=== PATIENT | female | born 1950 | race Caucasian/White ===

== ENCOUNTER 2017-07-04 18:56 | Inpatient (IN) | payer MEDICARE ==
[2017-07-04 19:31] LABS: #Eosinphils 0.4 thou/uL (0.0-0.7); #Lymphocytes 1.7 thou/uL (1.20-3.40); #Monocytes 0.7 thou/uL (0.11-0.59); %Basophils 0.4 % (0.0-1.0); %Eosinophils 4.7 % (0.0-10.0); %Lymphocytes 19.2 % (21.0-51.0); %Monocytes 8.2 % (0.0-10.0); Hematocrit 28.7 % (36.0-47.0); Red Blood Cell (RBC) Count 2.86 mill/uL (4.20-5.40); White Blood Cell (WBC) Count 8.9 thou/uL (4.8-10.8)
[2017-07-04 19:50] LABS: Lactic Acid - Sepsis 1.2 mmol/L (0.5-2.2)
[2017-07-04 19:57] LABS: ALT (SGPT) 20 U/L (8-55); AST (SGOT) 43 U/L (5-34); Alkaline Phosphatase 85 U/L (40-150); Anion Gap 18 mmol/L (10-20); BUN (Urea Nitrogen) 70 mg/dL (9.8-20.1); Bilirubin, Total 0.2 mg/dL (0.2-1.2); CK (CPK) 76 U/L (29-168); Calc. Creatinine Clearance 0 mL/min (70-130); Calcium 8.9 mg/dL (7.8-10.44); Carbon Dioxide 18 mmol/L (23-31); Chloride 108 mmol/L (98-107); Estimated GFR-MDRD 7; Globulin 4.5 g/dL (2.4-3.5); Lipase 70 U/L (8-78); Protein, Total 7.1 g/dL (6.0-8.3)
[2017-07-04 20:00] LABS: Troponin I 0.189 ng/mL (< 0.028)
[2017-07-04] MEDS ORDERED: Dextrose 50% Abboject 50 ML SYRINGE ONE (21:10)
[2017-07-04] MEDS ORDERED: Enoxaparin Sodium 100 MG/ML SYRINGE ONE (21:10)
[2017-07-04] MEDS ORDERED: Furosemide 100 MG/10 ML VIAL ONE (21:10)
[2017-07-04] MEDS ORDERED: Insulin Regular 300 UNITS/3 ML VIAL ONE (21:10)
--- NOTE | 2017-07-04 21:13 | RAD ---
RADIOGRAPH CHEST 1 VIEW: Date: 07/04/2017 Time: 7:36 p.m. HISTORY: A 66-year-old female with dyspnea and chest pain. COMPARISON: None. FINDINGS: There is cardiomegaly. There is blunting of the lateral costophrenic angles bilaterally. There are centrally dominant bilateral interstitial densities. No pneumothorax. Complete silhouetting of th e left hemidiaphragm. Left lower lobe air space density. IMPRESSION: 1. Evidence for congestive heart failure: Cardiomegaly, small bilateral pleural effusions, and pul monary interstitial edema. 2. Left lower lobe air space density. BETO [] POS: [facility]
--- NOTE | 2017-07-04 22:39 | ULT ---
ULTRASOUND WITH DOPPLER DUPLEX VENOUS LOWER EXTREMITIES BILATERAL: HISTORY: A 66-year-old female with bilateral lower extremity swelling, bilateral lower extremity pain, elevat ed D-dimer, and dyspnea. TECHNIQUE: Color flow Doppler, spectral waveform analysis of pulsed Doppler, and junior-scale imaging with compre ssion and augmentation, were used to evaluate the bilateral common femoral, femoral, popliteal, post erior tibial, and superficial femoral, veins; and the proximal portions of the profunda femoral and greater saphenous, veins. FINDINGS: There is normal compressibility, demonstration of blood flow by color Doppler and pulsed Doppler, an d response to augmentation, in all interrogated veins. There is diffuse soft tissue edema throughou t the bilateral lower extremities. There is an approximately 3.5 x 1 x 2.5 cm hypoechoic lesion in the right popliteal fossa. IMPRESSION: 1. No deep vein thrombosis in the bilateral lower extremities. 2. Bilateral lower extremity soft tissue edema. 3. Right Wilde's cyst. wally[] POS: [facility]
--- NOTE | 2017-07-04 23:00 | NM ---
NUCLEAR MEDICINE VENTILATION PERFUSION SCAN: (V/Q SCAN) HISTORY: A 66-year-old female with dyspnea and chest pain. TECHNIQUE: Xenon-133 gas dose: 15.7 millicuries. [id number] dose: 6 millicuries. The patient inhaled Xenon-133 gas, and dynamic ventilation scintigraphy was performed. [id number] wa s injected IV, and multiple perfusion scintigraphic views were obtained. FINDINGS: There are no moderate-sized or large perfusion defects. There are no significant ventilation/perfus ion mismatches. IMPRESSION: Low probability for pulmonary thromboembolism. jn [] POS: [facility]
[2017-07-04] MEDS ORDERED: Dextrose 50% Abboject 50 ML SYRINGE SLOW IVP PRN (23:18)
[2017-07-04] MEDS ORDERED: HumaLOG 300 UNITS/3 ML VIAL SC PRN (23:18)
[2017-07-04] MEDS ORDERED: Dextrose 5% in Water 1,000 ML IV PRN (23:18)
[2017-07-04] MEDS ORDERED: Acyclovir 200 mg Capsule PO SCH (23:45)
--- NOTE | 2017-07-05 00:26 | HP ---
PRIMARY CARE PHYSICIAN: Dr. Myranda Elaine. CHIEF COMPLAINT: Shortness of breath. HISTORY OF PRESENT ILLNESS: Ms. Mirza is a pleasant 66-year-old lady who was seen at [facility] on 07/04/2017. She reports that over the last 2 days, she has been short of breath. The shortness of breath is wor se with lying down. She denies any paroxysmal nocturnal dyspnea. She denies any dyspnea on exertio n. She denies any fevers or chills. She denies any cough. She reports a rash over her right shoul tristen. She also reports nausea and generalized weakness. She denies any chest pain. She denies any urinary symptoms. REVIEW OF SYSTEMS: The following complete review of systems was negative, unless otherwise mentione d in the HPI or below: Constitutional: Weight loss or gain, sense of well-being, ability to conduct usual activities, exer cise tolerance. Skin/Breast: Rash, itching, changes in hair growth or loss, nail changes, breast lumps, tenderness, swelling, nipple discharge. Eyes: Vision, double vision, tearing, blind spots, pain. ENT/Mouth: Headaches (location, time of onset, duration, precipitating factors), vertigo, lighthead edness, injury. Vision, double vision, tearing, blind spots, pain, nose bleeding, colds, obstruction , discharge, dental difficulties, gingival bleeding, dentures, neck stiffness, pain, tenderness, mas ses in thyroid or other areas. Cardiovascular: Precordial pain, substernal distress, palpitations, syncope, dyspnea on exertion, o rthopnea, nocturnal paroxysmal dyspnea, edema, cyanosis, hypertension, heart murmurs, varicosities, phlebitis, claudication. Respiratory: Pain, shortness of breath, wheezing, stridor, cough, hemoptysis, fever or night sweats . Gastrointestinal: Poor appetite, dysphagia, indigestion, abdominal pain, heartburn, eructation, b[place] sea, vomiting, hematemesis, jaundice, constipation, or diarrhea, abnormal stools (kassie-colored, maria dolores y, bloody, greasy, foul smelling), flatulence, hemorrhoids, recent changes in bowel habits. Genitourinary: Urgency, frequency, dysuria, nocturia, hematuria, polyuria, oliguria, unusual (or ch zena in) color of urine, stones, hesitancy, change in size of stream, dribbling, acute retention or incontinence, libido, potency. Musculoskeletal: Pain, swelling, redness or heat of muscles or joints, limitation, of motion, muscu lar weakness, atrophy, cramps. Neurologic/Psychiatric: Convulsions, paralyses, tremor, incoordination, parasthesias, difficulties with memory of speech, sensory or motor disturbances, or muscular coordination (ataxia, tremor), emo tional problems, anxiety, depression, previous psychiatric care, unusual perceptions, hallucinations . Allergy/Immunologic: Skin rash, anemia, bleeding tendency, polydipsia, polyuria, intolerance to hea t or cold. PAST MEDICAL HISTORY: Significant for lumbar laminectomy in late 2015, nephrolithiasis in 1999, tom yarticular osteoarthritis, gout, L4 radiculopathy, hypertension, dyslipidemia, diabetes mellitus, an emia, scoliosis, obesity, lumbar vertebral osteomyelitis in 2016 and recurrent urinary tract infecti ons. PAST SURGICAL HISTORY: Significant for total hysterectomy in 1995, bilateral total hip replacements , right-sided in 2003 and left-sided in 2008, bilateral cataract surgery in 2012, lumbar laminectomy at L3/L4 and L4/L5 in 2015. FAMILY HISTORY: Significant for cirrhosis in her father and heart disease in her mother. SOCIAL HISTORY: The patient denies tobacco use, alcohol use or recreational drug use. She lives al one at home. PSYCHIATRIC HISTORY: Significant for depression. ALLERGIES: CHLORHEXIDINE, MORPHINE. CURRENT MEDICATIONS: Metoprolol 50 mg 2 times a day, amlodipine 10 mg daily, gabapentin 100 mg adela y, Lantus 48 units 2 times a day, fenofibrate 145 mg daily, escitalopram 20 mg daily, potassium citr ate 20 mEq daily, aspirin 81 mg daily, Citracal 400 mg daily, multivitamins 1 tablet daily, magnesiu m glycinate daily. CODE STATUS: I discussed Ms. Mirza's code status. She is FULL CODE. PHYSICAL EXAMINATION: GENERAL: Ms. Mirza is awake and alert, not in acute distress. VITAL SIGNS: Blood pressure is 152/54, pulse is 80. She is breathing at rate of 20 and saturating 96% on room air. She is afebrile. When she initially presented to the emergency room, she had a bl ood pressure of 209/60. EYES: No scleral icterus. No conjunctival pallor. ENT: Moist mucosal membranes, no oropharyngeal erythema or exudates. NECK: She has a rash over the right side of her neck and upper chest on the right side, not crossin g midline. There has a few vesicles of different ages. This was accompanied by erythema over the a ffected area. There is no jugular venous distention. There is no thyromegaly. Trachea is midline. RESPIRATORY: Accessory muscles of breathing are not active. Chest wall movements are symmetric kike aterally. Lung examination reveals bibasilar crackles. CARDIOVASCULAR: S1 and S2 are heard, regular. Peripheral pulses palpable. No carotid bruit, no pe ricardial rub. ABDOMEN: Soft, nontender, bowel sounds heard, no hepatomegaly, no splenomegaly. NEUROLOGIC: Cranial nerves II through XII are intact. Deep tendon reflexes are 2+. PSYCHIATRIC: Normal mood, normal affect, patient is oriented to person, place, and time. MUSCULOSKELETAL: Power is 5/5 in all 4 extremities. Normal range of movement at all major extremit y joints. She also has bilateral lower extremity edema. SKIN: Neck rash as described above. No other rashes or subcutaneous nodules. LYMPHATIC: No cervical lymphadenopathy. LABORATORY DATA: Ms. Mirza's labs and investigations were reviewed. I reviewed her electrocardiogr am, which shows normal sinus rhythm, no ST changes to suggest an acute coronary syndrome. I also re viewed her chest x-ray, which shows pulmonary interstitial edema. There is also suspicion of her le ft lower lobe infiltrate. Laboratory investigation show a normal white count, macrocytic anemia wit h hemoglobin 9.2, normal platelet count, elevated D-dimer of 2.36, normal sodium, elevated potassium of 5.8, elevated creatinine 5.89, last known creatinine 3.16 on 02/25/2017, elevated blood urea nit rogen of 70, elevated AST of 43, normal total bilirubin, elevated BNP level of 2853, indeterminate t roponin I of 0.189, normal lipase and decreased albumin of 2.6. Globulin is elevated at 4.5. ASSESSMENT AND PLAN: Ms. Mirza is a pleasant 66-year-old lady who was seen at [facility]. Her problem list includes: 1. Shortness of breath: Most likely secondary to congestive heart failure exacerbation. Even thou gh there is suspicion of pulmonary infiltrate on the chest x-ray, she does not have leukocytosis or fever, she is not being started on antibiotics at this time. She did have a VQ scan, which was low probability for pulmonary thromboembolism. She will be admitted to the hospital for new onset conge stive heart failure. She will receive diuretics cautiously, given her renal failure. We will reque st 2D echocardiogram and Cardiology service consultation. 2. Acute on chronic renal failure: Ms. Mirza was found to have elevated creatinine towards the end of February. She was referred to see Nephrology, Dr. Corona. For some reason, they missed an appointmen t and ended up seeing him last week. He had ordered some tests to look into her renal failure. The patient has not yet had this test. We will consult Nephrology Service. I will provide the diureti cs judiciously. She does not appear to be dehydrated at this time, holding off on intravenous fluid s. Avoid nephrotoxic medications. 2. Herpes zoster, her rash is suspicious for herpes zoster. We will start her on acyclovir, dose a djusted for renal insufficiency. 3. Diabetes mellitus: We will start her on Accu-Cheks and insulin sliding scale. Her Lantus dose may need to be decreased, given the renal insufficiency. 4. Hypertension: Monitor vital signs, titrate antihypertensives as needed. 5. Dyslipidemia: Continue fenofibrate. 6. Hyperkalemia: Patient has received Kayexalate and insulin. Recheck potassium level. Hold pota ssium supplements. Many thanks for allowing me to participate in your patient's care. Please feel free to contact me w ith any questions or concerns. LEVEL OF RISK: High. LEVEL OF COMPLEXITY: High.
[2017-07-05 02:12] LABS: #Eosinphils 0.2 thou/uL (0.0-0.7); #Lymphocytes 1.3 thou/uL (1.20-3.40); #Monocytes 0.8 thou/uL (0.11-0.59); #Neutrophils 4.5 thou/uL (1.40-6.50); %Basophils 0.4 % (0.0-1.0); %Eosinophils 3.2 % (0.0-10.0); %Lymphocytes 18.9 % (21.0-51.0); %Monocytes 11.7 % (0.0-10.0); Red Blood Cell (RBC) Count 2.56 mill/uL (4.20-5.40); White Blood Cell (WBC) Count 6.8 thou/uL (4.8-10.8)
[2017-07-05 02:33] LABS: Troponin I 0.152 ng/mL (< 0.028)
[2017-07-05 02:41] LABS: Anion Gap 16 mmol/L (10-20); BUN (Urea Nitrogen) 71 mg/dL (9.8-20.1); Calc. Creatinine Clearance 16 mL/min (70-130); Calcium 8.6 mg/dL (7.8-10.44); Carbon Dioxide 16 mmol/L (23-31); Chloride 112 mmol/L (98-107); Estimated GFR-MDRD 7
[2017-07-05] MEDS ORDERED: Furosemide 20 MG/2 ML VIAL SLOW IVP SCH ×3 (06:00→13:30)
[2017-07-05] MEDS ORDERED: FLU VACC TS2017-18 (>65YR) 0.5 ML SYRINGE IM ONE (09:00)
[2017-07-05] MEDS ORDERED: Acyclovir 200 mg Capsule PO SCH (09:00)
[2017-07-05 09:19] LABS: Potassium, Urine 31.2 mmol/L
--- NOTE | 2017-07-05 09:26 | ULT ---
BILATERAL RENAL ULTRASOUND: Date: 07/05/17 COMPARISON: None. HISTORY: Acute on chronic renal failure. TECHNIQUE: Multiplanar Rodriguez scale and color Doppler images were obtained in a renal ultrasound. FINDINGS: Both kidneys demonstrate thin cortices and are echogenic. Small nonobstructing calcifications are se en in both kidneys. The kidneys measures 12.0 and 9.8 cm in length on the right and left, respective ly. The urinary bladder is moderately distended. Ureteral jets are not seen. IMPRESSION: 1. Echogenic kidneys are likely related to chronic medical renal disease. 2. Nonobstructing renal calcifications. 3. Urinary balder distention. POS: [facility]
--- NOTE | 2017-07-05 09:53 | PRG ---
DATE OF SERVICE: 07/05/2017 SUBJECTIVE: The patient is seen and examined at the bedside. She is feeling slightly better. This morning, she voided after she had ultrasound done at the midnight. She does not have any nausea, v omiting or abdominal pain. She has some burning sensation in the right side of the neck. OBJECTIVE: VITAL SIGNS: Blood pressure is 155/57, pulse is 86, temperature is 97.2, respirations 18, and O2 sa turation is 98% on room air. GENERAL: She is obese. Her BMI is 39. Her weight is 235. Her height is 5 feet and 5 inches. HEENT: Head is atraumatic, normocephalic. Eyes are PERRLA. Conjunctivae pinkish. Oral mucosa is somewhat dry. NECK: Supple, no lymphadenopathy. There are several vesicular lesions on the red base in the right base of the neck. LUNGS: Breath sounds are diminished at both bases. No crackles, rales, or wheezing. HEART: S1 and S2, somewhat distant. No S3, no S4. ABDOMEN: Soft, nontender, and nondistended. Bowel sounds are present, no organomegaly. EXTREMITIES: 1+ peripheral edema similar bilaterally. NEUROLOGIC: She is alert and oriented x4. There are no motor or sensory deficits present. Cranial nerves are intact. LABORATORY DATA: Showed white count of 6.8, hemoglobin 8.2, hematocrit 26.0, MCV 102, and platelet count 212. Sodium of 139, potassium 5.1, chloride 112, CO2 16, BUN 71, creatinine 5.91, and glucose is 37; it was 65 yesterday at 19:59. Troponin is elevated, 3 sets at 0.189, 0.160, and 0.152. BNP 2853. IMPRESSION: 1. Acute on chronic renal failure. Apparently, patient's creatinine was around 3 in February and she w as seen by Dr. Corona on an outpatient basis and she had some blood work done and she was setup for [facility], but this has not been done yet. The ultrasound was done this morning, but results are pen ding. We will put the Nieves catheter in, obtain urine sample for urinalysis and do input and output strict. We will avoid nephrotoxins. Dr. Corona is consulted and he will make decision about IV flui ds and further management of her nephropathy. 2. Herpes zoster, most likely in her neck area. I do not think it is worth to treat her with acycl ovir since it has nephrotoxic effect and precipitates in the tubules and we will discuss this with Mahesh Corona, but I believe we will stop the acyclovir that she was placed on. 3. Diabetes mellitus. We will continue her on sliding scale, Accu-Cheks a.c. and at bedtime, but s he is hypoglycemic now and we are not going to use long-acting insulin, Lantus for now. 4. Hypertension. We would titrate antihypertensives as needed. 5. Dyslipidemia. 6. Hyperkalemia, which was corrected and now her potassium is back to normal range. A V/Q scan was done and it is a low probability for PE and venogram did not show any deep venous thromboses, but c hest x-ray showed cardiomegaly and bilateral small pleural effusions. She will be on deep venous th rombosis prophylaxis with sequential compression devices and Cardiology is going to see the patient as well as Pulmonary, Dr. Boone.
[2017-07-05] MEDS: Furosemide 20 MG/2 ML VIAL SLOW IVP SCH (13:59)
--- NOTE | 2017-07-05 14:31 | CON ---
DATE OF CONSULTATION: 07/05/2017 NEPHROLOGY CONSULTATION REASON FOR CONSULTATION: Elevated creatinine. HISTORY OF PRESENT ILLNESS: This is a very pleasant 66-year-old female who [facility] with increasing dyspnea and leg swelling. The patient was seen in the CKD clinic. H er baseline creatinine was in the 2, which increased to 3. The patient has had a history of kidney stones in the past and episodes of acute kidney injury. PAST MEDICAL HISTORY: Significant for lumbar laminectomy, nephrolithiasis, history of lithotripsy, history of gout, radiculopathy, hypertension, hyperlipidemia, diabetes mellitus, anemia, scoliosis, osteomyelitis, recurrent urinary tract infection, history of hysterectomy, bilateral hip replacement , cataract surgery, and lumbar laminectomy. FAMILY HISTORY: Negative for ESRD. SOCIAL HISTORY: No alcohol or drug use. ALLERGIES: Reviewed. HOME MEDICATIONS: List reviewed. HOSPITAL MEDICATIONS: List reviewed. REVIEW OF SYSTEMS: A 15 point review of systems was performed and was negative except for positives noted above. GENERAL: Weakness- HEAD: Headache- NECK: No swelling or lumps. NOSE: No epistaxis or discharge. EYES: No diplopia or pain. 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 NEUROPSYCHIATIC SYSTEMS: No suicidal ideation. No ideation. SKIN: Denies any rash or ulcer. CONSTITUTIONAL: No fever or chills. PHYSICAL EXAMINATION: GENERAL: Patient is awake, alert. VITAL SIGNS: Afebrile, pulse 86, breathing at 16, blood pressure 149/45. GENERAL APPEARANCE AND MENTAL STATUS: Fair. HEAD/NECK: Normocephalic. Atraumatic. EYES: EOMI. No deformity. EARS: Clear. No ulcers. NOSE: Intact. No lesions. MOUTH: Clear. No discharge. THROAT: Clear. No exudate. LUNGS: Clear. No crackles. CARDIAC: S1, S2. No rub. ABDOMEN: Benign. BS+. GENITALIA/RECTUM: Nieves absent. BACK/EXTREMITIES: Lower extremities, 4+ edema. NEUROLOGICAL: Alert and motor intact. SKIN: Rash- Bruise- LYMPHATICS: Edema- Ulcer- ASSESSMENT AND RECOMMENDATIONS: 1. Acute kidney injury with chronic kidney disease, multifactorial, could be due to cardiorenal syn drome. Continue diuresis. 2. Edema. Continue Lasix. 3. History of nephrolithiasis and chronic kidney disease. No urgent indication for dialysis. We w ill follow the patient's renal function closely. 4. Metabolic acidosis. Would recommend p.o. sodium bicarbonate for placement. We will follow the patient's renal function closely. No indication for dialysis at this time.
[2017-07-05] MEDS: Sodium Bicarbonate Tab 325 MG TAB PO SCH ×2 (14:47→21:36)
--- NOTE | 2017-07-05 16:07 | CON ---
DATE OF SERVICE: 07/05/2017 SERVICE: Pulmonary Medicine. REASON FOR CONSULTATION: CU patient. HISTORY OF PRESENT ILLNESS: The patient is a 66-year-old white female with past medical history sig nificant for chronic kidney disease. This has been slowly progressing over a period of year and janina f. She presented to the emergency department with increasing dyspnea. She was found to be signific antly volume overloaded. Overnight, she had a couple doses of Lasix and has had a fairly dramatic i mprovement in her symptoms. She denies any current fevers, chills, nausea or vomiting. Recently, s he has been fighting a rash in her neck that has a burning and tingling sensation. She wonders whet her or not it could be shingles. PHYSICAL EXAMINATION: VITAL SIGNS: Afebrile, pulse 86, blood pressure 149/45, respirations 18, saturation 96% on room air . GENERAL: Patient is awake, alert, in no apparent distress. LUNGS: Decent air entry. Dependent crackles are present. HEART: Normal rate, regular. ABDOMEN: Soft, nontender, nondistended, bowel sounds positive. MUSCULOSKELETAL: No cyanosis or clubbing. There is trace to 1+ pitting in the bilateral lower extr emities. NEUROLOGIC: Grossly nonfocal. LABORATORY DATA: WBC 6.8, hemoglobin 8.2, and platelets 212,000. D-dimer 2.36. Glucose is ranging from 49-100. Creatinine 5.71, BUN 71. Bicarbonate 16, anion gap 16. Basic metabolic profile is o therwise unremarkable with potassium is down trending of 5.1. Troponin is down trending to 0.125, B [employer] 2800. Lactate was unremarkable on presentation. Liver function studies are unremarkable. IMAGIN. Renal ultrasound demonstrates no evidence of hydronephrosis. The kidneys are consistent with ch ronic medical renal disease. 2. V/Q scan demonstrates low probability study for thromboembolic disease. 3. Ultrasound of the bilateral lower extremities demonstrates no evidence of deep venous thrombosis . There is some soft tissue edema present in Wilde's cyst. 4. Chest x-ray demonstrates findings consistent with mild volume overload including bilateral pleur al effusions and prominent interstitial markings. Cephalization is also evident. ASSESSMENT: 1. Acute hypoxic respiratory failure, resolved. 2. Volume overload secondary to chronic kidney disease. 3. Acute on chronic kidney disease. 4. Bilateral pleural effusions. PLAN: We can continue to diurese the patient to euvolemia. In 2-3 days, repeat x-ray of the chest can be considered to make certain these effusions get smaller and/or go away. She does not require IMCU monitoring. As such, we will transition her to the telemetry unit because of her elevated trop onin and episode of high potassium.
--- NOTE | 2017-07-05 16:39 | CON ---
DATE OF CONSULTATION: 07/05/2017 REASON FOR CONSULTATION: Shortness of breath, edema, and elevated BNP. HISTORY OF PRESENT ILLNESS: Ms. Mirza is a pleasant 66-year-old woman who has been seen and evaluat ed by Dr. Arnie Fry in the past. She states she has had a full workup several years ago that was negative for ischemia. She has not been told in the past she had a cardiomyopathy. She most recently presented with increased lower extremity edema, difficulty sleeping, and shortness of breath. She states she had shortness of breath with little ambulation. No chest pain or pressu re noted. PAST MEDICAL HISTORY: Diabetes mellitus, hypertension, hyperlipidemia. No previous tobacco abuse. Chronic kidney disease, followed by Dr. Corona; lumbar laminectomy; nephrolithiasis; osteoarthritis; anemia; scoliosis; obesity; total hysterectomy; cataract surgery; laminectomy. SOCIAL HISTORY: No current tobacco or alcohol use. ALLERGIES: MORPHINE. HOME MEDICATIONS: Include metoprolol, Lantus, fenofibrate, amlodipine, Citracal, potassium, magnesi um, multivitamin, and gabapentin. REVIEW OF SYSTEMS: Ten-point review of systems is reviewed and as above, otherwise negative. PHYSICAL EXAMINATION: GENERAL: Patient is a pleasant female who is in no acute distress. The patient appears her stated age. VITAL SIGNS: Blood pressure 150/50, pulse 18, temperature 107. NEUROLOGIC: The patient is alert and oriented times 3 with no focal neurologic deficits. HEENT: Sclerae without icterus. Mouth has moist mucous membranes with normal pallor. NECK: No JVD. Carotid upstroke brisk. No bruits bilaterally. LUNGS: Clear to auscultation with unlabored respirations. BACK: No scoliosis or kyphosis. CARDIAC: Regular rate and rhythm with normal S1 and S2. No S3 or S4 noted. No significant rubs, m urmurs, thrills, or gallops noted throughout the precordium. PMI is not displaced. There is no par asternal heave. ABDOMEN: Soft, nontender, nondistended. No peritoneal signs present. No hepatosplenomegaly. No a bnormal striae. EXTREMITIES: Two positive edemas noted in her thighs bilaterally. SKIN: No gross abnormalities. PERTINENT LABORATORY: Hemoglobin 8.2 down from 9.2, creatinine 5.9. Peak troponin 0.152. BNP of 2 853. IMPRESSION: 1. Shortness of breath. 2. Edema. 3. Elevated BNP. RECOMMENDATIONS: It is unknown whether Ms. Mirza's symptoms are related to systolic versus diastoli c dysfunction. This may also be due to renal failure or chronic kidney disease stage 5. At this po int, we would recommend echo with Doppler to assess LV function as well as assess for diastolic dysf unction. Nephrology has been consulted. The patient may be nearing dialysis. This may be at the d iscretion of Dr. Corona. She is currently on Lasix as well as sodium bicarbonate. We will continue t o follow with you.
[2017-07-05] MEDS: traMADol HCl 50 MG TAB PO PRN (21:36)
[2017-07-06] MEDS: traMADol HCl 50 MG TAB PO PRN ×2 (04:22→17:12)
[2017-07-06 06:06] LABS: #Eosinphils 0.3 thou/uL (0.0-0.7); #Lymphocytes 1.4 thou/uL (1.20-3.40); #Monocytes 0.7 thou/uL (0.11-0.59); #Neutrophils 4.1 thou/uL (1.40-6.50); %Basophils 0.4 % (0.0-1.0); %Eosinophils 4.2 % (0.0-10.0); %Lymphocytes 20.9 % (21.0-51.0); %Monocytes 10.5 % (0.0-10.0); Hematocrit 23.6 % (36.0-47.0); Mean Platelet Volume 6.7 fL (7.4-10.4); Red Blood Cell (RBC) Count 2.36 mill/uL (4.20-5.40); White Blood Cell (WBC) Count 6.5 thou/uL (4.8-10.8)
[2017-07-06] MEDS: Furosemide 20 MG/2 ML VIAL SLOW IVP SCH ×3 (06:30→18:39)
[2017-07-06 06:31] LABS: Anion Gap 10 mmol/L (10-20); BUN (Urea Nitrogen) 67 mg/dL (9.8-20.1); Calc. Creatinine Clearance 16 mL/min (70-130); Calcium 7.9 mg/dL (7.8-10.44); Carbon Dioxide 21 mmol/L (23-31); Chloride 110 mmol/L (98-107); Estimated GFR-MDRD 7
[2017-07-06] MEDS: Sodium Bicarbonate Tab 325 MG TAB PO SCH ×3 (09:18→21:07)
[2017-07-06] MEDS ORDERED: Amlodipine 5 MG TAB PO SCH (09:45)
--- NOTE | 2017-07-06 10:45 | PRG ---
DATE OF SERVICE: 07/06/2017 SUBJECTIVE: Patient was seen and examined at bedside and overnight events noted. Patient denies an y shortness of breath or chest pain or palpitation. No history of nausea or vomiting or diarrhea or fever or chills or cramps. OBJECTIVE: GENERAL: This is an obese female in no apparent distress VITAL SIGNS: Temperature 97.9, pulse 90, respiratory rate 18, blood pressure 203/93. HEENT: Atraumatic, normocephalic. Oral mucosa is moist. NECK: Supple. CARDIOVASCULAR: S1 and S2 heard, rate and rhythm regular. RESPIRATORY: Clear to auscultation. GASTROINTESTINAL: Abdomen is soft. MUSCULOSKELETAL: No tenderness, no edema. DERMATOLOGIC: No skin rash. NEUROLOGIC: Alert and awake and oriented X3. No focal neurologic deficits. Moving all the extremi ties. PSYCHIATRIC: Mood and affect normal. LABORATORY DATA: Potassium is 4.4, BUN is 67, creatinine is 5.9. ASSESSMENT AND PLAN: 1. Acute kidney injury on chronic kidney disease, renal function is stable, on diuresis. 2. Edema, on Lasix. 3. History of nephrolithiasis. 4. Metabolic acidosis. 5. Cardiorenal syndrome. 6. Hypertension. Agree with adding amlodipine and home dose as tolerated to metoprolol. Follow up with stress test, we will follow.
[2017-07-06 10:48] LABS: Collection Duration 24 hrs
[2017-07-06] MEDS: Labetalol HCl 100 MG/20 ML VIAL SLOW IVP PRN ×2 (11:06→18:36)
--- NOTE | 2017-07-06 13:04 | PRG ---
DATE OF SERVICE: 07/06/2017 SERVICE: Pulmonary Medicine. INTERVAL HISTORY: The patient is doing outstanding from a respiratory standpoint. She has no diffi culty with breathing. She has been in bed since being here. She is yet to get up and about. Other navarro, there were no overnight events. PHYSICAL EXAMINATION: VITAL SIGNS: Afebrile, pulse 86, blood pressure 153/71, respirations 16, and saturation 96% on room air. GENERAL: The patient is awake and alert, in no apparent distress. LUNGS: Decent air entry. Dependent crackles are present. HEART: Normal rate, regular. ABDOMEN: Soft, nontender, nondistended. Bowel sounds positive. MUSCULOSKELETAL: No cyanosis or clubbing. No pitting in the bilateral lower extremities. NEUROLOGIC: Grossly nonfocal. LABORATORY DATA: WBC 6.5, hemoglobin 7.3, and platelets 209,000. Creatinine 5.9. BUN 67. Both of these are roughly stable. Basic metabolic profile is otherwise unremarkable. Bicarbonate has impr digna to 21. IMAGING: Echocardiogram demonstrates a 40% ejection fraction with diastolic dysfunction. There is mild to moderate valvular disease identified. ASSESSMENT: 1. Acute hypoxic respiratory failure, resolved. 2. Volume overload, secondary to chronic kidney disease. 3. Acute kidney injury on chronic kidney disease. 4. Bilateral pleural effusions. PLAN: We need to diurese the patient until she gets closer to euvolemia. I will repeat a chest x-r ay in 1-2 days prior to going home to make certain that these effusions are getting smaller. If not , one side maybe tapped. She is going down for a stress test today. Pulmonary will continue to fol low for the time being.
--- NOTE | 2017-07-06 17:52 | PDOC.PN ---
- Subjective Encounter Start Date: 07/06/17 Encounter Start Time: 13:00 Subjective: c/o painful swelling in legs - Objective Resuscitation Status: Resuscitation Status FULL:Full Resuscitation MAR Reviewed: Yes Vital Signs & Weight: Vital Signs (12 hours) Temp Pulse Resp BP BP Pulse Ox 07/06/17 17:11 185/86 H 07/06/17 16:00 98.3 F 93 20 190/86 H 95 07/06/17 11:19 98.0 F 86 16 153/71 H 96 07/06/17 11:06 98 238/102 H 07/06/17 10:02 98 203/93 H 07/06/17 09:30 98.0 F 86 16 98 07/06/17 09:13 97.9 F 98 20 197/71 H 98 Weight Admit Weight 235 lb 1.6 oz Weight 227 lb 12.8 oz I&O: 07/05/17 07/06/17 07/07/17 06:59 06:59 06:59 Intake Total 1844 Output Total 2775 Balance -931 Result Diagrams: 07/06/17 05:32 07/06/17 05:32 Additional Labs: Accuchecks 07/06/17 07/05/17 11:56 20:36 POC Glucose 72 104 Phys Exam - Physical Examination Constitutional: NAD HEENT: PERRLA Neck: no JVD Respiratory: no wheezing, no rales, no rhonchi, clear to auscultation bilateral Cardiovascular: RRR, no significant murmur, no rub improved lower ext edema; l/e elevated; tense edema prox theighs Gastrointestinal: soft, non-tender, no distention, positive bowel sounds Musculoskeletal: edema present Neurological: non-focal, normal sensation, moves all 4 limbs Psychiatric: normal affect, A&O x 3 Dx/Plan (1) Acute respiratory failure with hypoxia Code(s): J96.01 - ACUTE RESPIRATORY FAILURE WITH HYPOXIA Status: Acute Comment: multifactorial, due to fluid overload state from acute on chronic renal failure with concurrent acute on chronic combined CHF exacerbation. Diurese per nephro, manage hypertension. see orders for amlodipine and prn labetolol. VQ low probability for pulmonary embolism. Venous doppler reportedly done, no results in chart (2) Acute on chronic renal failure Code(s): N17.9 - ACUTE KIDNEY FAILURE, UNSPECIFIED; N18.9 - CHRONIC KIDNEY DISEASE, UNSPECIFIED Status: Acute Qualifiers: Acute renal failure type: unspecified Chronic kidney disease stage: stage 5 , not on chronic dialysis Qualified Code(s): N17.9 - Acute kidney failure, unspecified; N18.5 - Chronic kidney disease, stage 5; N18.5 - Chronic kidney disease, stage 5; N18.5 - Chronic kidney disease, stage 5; N18.5 - Chronic kidney disease, stage 5 Comment: diurese and control hypertension (3) Acute exacerbation of CHF (congestive heart failure) Code(s): I50.9 - HEART FAILURE, UNSPECIFIED Status: Acute Qualifiers: Congestive heart failure type: combined Qualified Code(s): I50.43 - Acute on chronic combined systolic (congestive) and diastolic (congestive) heart failure Comment: acute on chronic combined CHF exacerbation, EF 40-45% (4) Anxiety associated with depression Status: Chronic (5) Diabetes type 2, uncontrolled Code(s): E11.65 - TYPE 2 DIABETES MELLITUS WITH HYPERGLYCEMIA Status: Chronic Qualifiers: Diabetes mellitus complication status: with kidney complications Diabetes mellitus complication detail: with nephropathy Diabetes mellitus zigzag machine operator insulin use: with zigzag machine operator use Qualified Code(s): E11.21 - Type 2 diabetes mellitus with diabetic nephropathy; E11.65 - Type 2 diabetes mellitus with hyperglycemia; E11.65 - Type 2 diabetes mellitus with hyperglycemia; E11.65 - Type 2 diabetes mellitus with hyperglycemia; E11.65 - Type 2 diabetes mellitus with hyperglycemia; Z79.4 - coo (current) use of insulin; Z79.4 - coo (current) use of insulin; Z79.4 - coo (current) use of insulin; Z79.4 - coo (current) use of insulin Comment: with hypoglycemia. SSI only (6) Hypertension complicating diabetes Code(s): E11.59 - TYPE 2 DIABETES MELLITUS WITH OTH CIRCULATORY COMPLICATIONS; I10 - ESSENTIAL (PRIMARY) HYPERTENSION Status: Chronic Comment: amlodipine 5mg added and prn labetalol for sbp >160 (7) Anemia in chronic kidney disease (CKD) Code(s): N18.9 - CHRONIC KIDNEY DISEASE, UNSPECIFIED; D63.1 - ANEMIA IN CHRONIC KIDNEY DISEASE Status: Chronic Qualifiers: Chronic kidney disease stage: stage 5, not on chronic dialysis Qualified Code(s): N18.5 - Chronic kidney disease, stage 5; D63.1 - Anemia in chronic kidney disease; D63.1 - Anemia in chronic kidney disease Comment: Hb down to 7.3, monitor and transfuse if <7 or symptomatic. - Plan cont current plan of care, plan discussed w/ family f/u stress test, venous doppler u/s of lower ext * .
[2017-07-06] MEDS ORDERED: cloNIDine 0.1 MG TAB PO PRN (18:07)
[2017-07-07] MEDS: Furosemide 20 MG/2 ML VIAL SLOW IVP SCH ×2 (06:04→15:28)
[2017-07-07 06:31] LABS: Anion Gap 14 mmol/L (10-20); BUN (Urea Nitrogen) 66 mg/dL (9.8-20.1); Calc. Creatinine Clearance 15 mL/min (70-130); Carbon Dioxide 17 mmol/L (23-31); Chloride 109 mmol/L (98-107); Estimated GFR-MDRD 7; Magnesium 1.4 mg/dL (1.6-2.6)
[2017-07-07 07:50] LABS: Hematocrit 23.6 % (36.0-47.0); Mean Platelet Volume 7.1 fL (7.4-10.4); Red Blood Cell (RBC) Count 2.38 mill/uL (4.20-5.40); White Blood Cell (WBC) Count 7.3 thou/uL (4.8-10.8)
[2017-07-07 08:13] LABS: Band 1 % (5-11); Neutrophil 56 % (42-75); Polychromasia SLIGHT = 2-3 cells (100X) (0-2/hpf)
--- NOTE | 2017-07-07 08:40 | RAD ---
PORTABLE AP CHEST: Date: 07-07-17 History: Pleural effusion. Comparison: 07-04-17 FINDINGS: Again noted is increased density at the left lung base probably related to left pleural effusion and atelectasis. There slight blunting of the right lateral costophrenic angle which also may be relate d to a tiny right pleural effusion. Cardiac silhouette is magnified by projection but does appear mi ldly enlarged. Pulmonary vasculature is also mildly increased. No other interval change. IMPRESSION: 1. Cardiomegaly with pulmonary vasculature slightly increased. Correlation for mild CHF is recommend ed. Pulmonary vascular congestion has improved from the prior exam. 2. Small left and tiny right pleural effusions with associated atelectasis. Continued follow up to [facility] emergency department is recommended. POS: [facility]
[2017-07-07] MEDS ORDERED: Amlodipine 5 MG TAB PO SCH (09:00)
[2017-07-07] MEDS: Sodium Bicarbonate Tab 325 MG TAB PO SCH ×3 (09:16→21:53)
[2017-07-07] MEDS: Carvedilol 3.125 MG TAB PO SCH ×2 (09:17→21:53)
--- NOTE | 2017-07-07 09:42 | PDOC.PN ---
- Subjective Encounter Start Date: 07/07/17 Encounter Start Time: 07:20 Pt seen for followup re: acute on chronic renal failure. Says she feels better. Denies chest pain, shortness if breath, fevers or chills. - Objective Resuscitation Status: Resuscitation Status FULL:Full Resuscitation MAR Reviewed: Yes Vital Signs & Weight: Vital Signs (12 hours) Temp Pulse Resp BP BP Pulse Ox 07/07/17 09:17 93 07/07/17 09:16 189/76 H 07/07/17 04:17 98.1 F 93 18 142/63 H 93 L 07/07/17 02:48 94 L 07/07/17 00:00 97 143/75 H Weight Admit Weight 235 lb 1.6 oz Weight 228 lb I&O: 07/06/17 07/07/17 07/08/17 06:59 06:59 06:59 Intake Total 1844 840 Output Total 2775 1875 Balance -959 -3867 Result Diagrams: 07/07/17 06:02 07/07/17 06:02 Additional Labs: Accuchecks 07/07/17 07/06/17 07/06/17 06:01 20:25 11:56 POC Glucose 97 140 H 72 07/06/17 05:34 POC Glucose 118 H EKG Reviewed by me: Yes (Tele: NSR) Phys Exam - Physical Examination Obese HEENT: moist MMs, oral pharynx no lesions Neck: supple Respiratory: no wheezing, no rales, no rhonchi, clear to auscultation bilateral Cardiovascular: RRR, no rub Gastrointestinal: soft, non-tender, positive bowel sounds Musculoskeletal: pulses present, edema present Neurological: non-focal, normal sensation, moves all 4 limbs Lymphatic: no nodes Psychiatric: normal affect, A&O x 3 Skin: no rash, normal turgor, cap refill <2 seconds Dx/Plan (1) Acute on chronic renal failure Code(s): N17.9 - ACUTE KIDNEY FAILURE, UNSPECIFIED; N18.9 - CHRONIC KIDNEY DISEASE, UNSPECIFIED Status: Acute Qualifiers: Acute renal failure type: unspecified Chronic kidney disease stage: stage 5 , not on chronic dialysis Qualified Code(s): N17.9 - Acute kidney failure, unspecified; N18.5 - Chronic kidney disease, stage 5; N18.5 - Chronic kidney disease, stage 5; N18.5 - Chronic kidney disease, stage 5; N18.5 - Chronic kidney disease, stage 5 (2) Acute exacerbation of CHF (congestive heart failure) Code(s): I50.9 - HEART FAILURE, UNSPECIFIED Status: Acute Qualifiers: Congestive heart failure type: combined Qualified Code(s): I50.43 - Acute on chronic combined systolic (congestive) and diastolic (congestive) heart failure (3) Acute respiratory failure with hypoxia Code(s): J96.01 - ACUTE RESPIRATORY FAILURE WITH HYPOXIA Status: Acute (4) Diabetes type 2, uncontrolled Code(s): E11.65 - TYPE 2 DIABETES MELLITUS WITH HYPERGLYCEMIA Status: Chronic Qualifiers: Diabetes mellitus complication status: with kidney complications Diabetes mellitus complication detail: with nephropathy Diabetes mellitus longterm insulin use: with terminal carman use Qualified Code(s): E11.21 - Type 2 diabetes mellitus with diabetic nephropathy; E11.65 - Type 2 diabetes mellitus with hyperglycemia; E11.65 - Type 2 diabetes mellitus with hyperglycemia; E11.65 - Type 2 diabetes mellitus with hyperglycemia; E11.65 - Type 2 diabetes mellitus with hyperglycemia; Z79.4 - bed bug exterminator (current) use of insulin; Z79.4 - bed bug exterminator (current) use of insulin; Z79.4 - bed bug exterminator (current) use of insulin; Z79.4 - half-way (current) use of insulin (5) HTN (hypertension) Code(s): I10 - ESSENTIAL (PRIMARY) HYPERTENSION Status: Chronic - Plan DVT proph w/heparin * .Discussed with nephrology service. They will discuss re: possible dialysis. Continue diuretics. Continue accuchecks, insulin. Monitor vital signs, titrate antihypertensives as needed. Review of Systems - Review of Systems Constitutional: negative: Fever, Chills, Sweats, Weakness, Malaise Respiratory: negative: Cough, Dry, Shortness of Breath, Hemoptysis, SOB with Excertion, Pleuritic Pain, Sputum, Wheezing Cardiovascular: negative: Chest Pain, Palpitations, Orthopnea, Paroxysmal Noc. Dyspnea, Edema, Light Headedness Gastrointestinal: negative: Nausea, Vomiting, Abdominal Pain, Diarrhea, Constipation, Melena, Hematochezia Genitourinary: negative: Dysuria, Frequency, Incontinence, Hematuria, Retention - Medications/Allergies Allergies/Adverse Reactions: Allergies Allergy/AdvReac Type Severity Reaction Status Date / Time chlorhexidine Allergy Rash Verified 09/05/16 10:47 morphine Allergy Nausea Verified 09/05/16 10:47 Medications: Current Medications Amlodipine Besylate (Norvasc) 5 mg PO DAILY [facility] Last Admin: 07/07/17 09:17 Dose: 5 mg Carvedilol (Coreg) 3.125 mg PO BID [facility] Last Admin: 07/07/17 09:17 Dose: 3.125 mg Clonidine HCl (Catapres) 0.1 mg PO Q6H PRN PRN Reason: Hypertension Last Admin: 07/07/17 09:16 Dose: 0.1 mg Dextrose/Water (Dextrose 50%) 25 gm SLOW IVP PRN PRN PRN Reason: Hypoglycemia Furosemide (Lasix) 40 mg SLOW IVP 0600,1400 [facility] Last Admin: 07/07/17 06:04 Dose: 40 mg Glucagon (Glucagon) 1 mg IM PRN PRN PRN Reason: Hypoglycemia Dextrose/Water (D5w) 1,000 mls @ 0 mls/hr IV .Q0M PRN; As Directed PRN Reason: Hypoglycemia Insulin Human Lispro (Humalog) 0 units SC .MILD SLIDING SCALE PRN PRN Reason: Mild Correctional Scale Labetalol HCl (Normodyne) 20 mg SLOW IVP Q4H PRN PRN Reason: Hypertension Last Admin: 07/06/17 18:36 Dose: 20 mg Sodium Bicarbonate (Bicarbonate, Sodium) 325 mg PO TID [facility] Last Admin: 07/07/17 09:16 Dose: 325 mg Sodium Chloride (Flush - Normal Saline) 10 ml IVF PRN PRN PRN Reason: Saline Flush Last Admin: 07/06/17 15:06 Dose: 10 ml Tramadol HCl (Ultram) 50 mg PO Q6H PRN PRN Reason: Pain Last Admin: 07/06/17 17:12 Dose: 50 mg
[2017-07-07] MEDS ORDERED: Tuberculin PPD 0.1 ML VIAL I-DERMAL SCH (10:15)
--- NOTE | 2017-07-07 10:37 | PRG ---
DATE OF SERVICE: 07/07/2017 SUBJECTIVE: Patient was seen and examined at bedside and overnight events noted. Patient denies an y shortness of breath or chest pain or palpitation. No history of nausea or vomiting or diarrhea or fever or chills or cramps. OBJECTIVE: GENERAL: This is a morbidly obese female in no apparent distress. VITAL SIGNS: Temperature 98.1, pulse 93, respiratory rate 18, blood pressure 148/60. HEENT: Atraumatic, normocephalic. Oral mucosa is moist. NECK: Supple. CARDIOVASCULAR: S1 and S2 heard, rate and rhythm regular. RESPIRATORY: Clear to auscultation. GASTROINTESTINAL: Abdomen is soft. MUSCULOSKELETAL: No tenderness, no edema. DERMATOLOGIC: No skin rash. NEUROLOGIC: Alert and awake and oriented X3. No focal neurologic deficits. Moving all the extremi ties. PSYCHIATRIC: Mood and affect normal. LABORATORY DATA: Potassium is 4.4, BUN is 66, creatinine is 5.9. ASSESSMENT AND PLAN: 1. Acute kidney injury on chronic kidney disease stage 5. Renal function is not getting any better . It seems like her chronic numbers, I did look at her previous labs, also seems like this is new b aseline. The patient refused biopsy at this point, most likely from diabetic nephropathy and cardio renal syndrome. The patient was given the choice of dialysis and she [facility]. If patient agrees, we will start on dialysis. The patient is also not able to have further car diac testing because of the chronic kidney disease status. 2. Metabolic acidosis. 3. Edema on Lasix with improvement, but renal function is stable. 4. Anemia, most likely from chronic disease. 5. Cardiorenal syndrome. 6. Hypertension, stable. 7. Plan is to start dialysis if tolerated. We will consult Surgery and we will place the labs. I did talk with her primary compound coating machine offbearer, Dr. Corona, who has been having discussion with the patient. We will follow.
--- NOTE | 2017-07-07 14:23 | ULT ---
BILATERAL UPPER EXTREMITY VENOUS MAPPING: Date: 07/07/17 HISTORY: Renal failure. Evaluate for dialysis access. FINDINGS: Flow is demonstrated in the bilateral internal jugular and subclavian veins with normal lumen compre ssibility involving each axillary vein. RIGHT UPPER EXTREMITY CEPHALIC VEIN Proximal Arm: 4.0 mm Mid Arm: 3.9 mm Distal Arm: 3.1 mm Antecubital Fossa: 3.3 mm Proximal Forearm: 3.0 mm Mid Forearm: 2.1 mm Distal Forearm: 1.7 mm BASILIC VEIN Proximal Arm: 5.6 mm Mid Arm: 3.9 mm Distal Arm: 5.3 mm Antecubital Fossa: 3.8 mm Proximal Forearm: 3.5 mm Mid Forearm: 3.4 mm Distal Forearm: 3.9 mm LEFT UPPER EXTREMITY CEPHALIC VEIN Proximal Arm: 2.7 mm Mid Arm: 1.2 mm Distal Arm: 1.8 mm Antecubital Fossa: Noncompressible cephalic vein in this location suggesting thrombus. This is at s ite of peripheral intravenous catheter, according to patient. Proximal Forearm: 4.5 mm Mid Forearm: 3.2 mm Distal Forearm: 3.6 mm BASILIC VEIN Proximal Arm: 4.5 mm Mid Arm: 4.9 mm Distal Arm: 4.0 mm Antecubital Fossa: 4.5 mm Proximal Forearm: 2.9 mm Mid Forearm: 3.6 mm Distal Forearm: 2.6 mm RIGHT UPPER EXTREMITY ARTERIAL DIAMETERS: Brachial Artery: 3.2 mm Radial Artery: 2.4 mm Ulnar Artery 2.0 mm LEFT UPPER EXTREMITY ARTERIAL DIAMETERS: Brachial Artery: 3.8 mm Radial Artery: 2.5 mm Ulnar Artery: 0.7 mm IMPRESSION: The left upper extremity cephalic vein at the level of the antecubital fossa is noncompressible, con sistent with thrombus. This is at site of prior peripheral intravenous catheter according to ultraso und wheel alignment technician. The remaining venous diameters are as described above. POS: [facility]
[2017-07-07] MEDS ORDERED: CEFAZOLIN/Water 2 GM/20 ML SYRINGE SLOW IVP SCH (16:30)
--- NOTE | 2017-07-07 17:29 | NM ---
NUCLEAR MEDICINE CARDIAC MYOCARDIAL PERFUSION SPECT EJECTION FRACTION STUDY WALL MOTION CINE: Date: 07/07/17 HISTORY: 66-year-old female with elevated cardiac enzymes, hypertension, diabetes mellitus, and dyslipidemia. TECHNIQUE: Number of days: 1 Rest study: Tc99m sestamibi (Cardiolite) dose: 27.0 mCi Pharmacologic stress: adenosine dose: 57.7 mg Stress study: Tc99m sestamibi (Cardiolite) dose: 30.5 mCi FINDINGS: CARDIAC (MYOCARDIAL PERFUSION) SPECT There is a fixed inferolateral defect. Uptake is somewhat heterogeneous in the anterior wall. No rev ersible defect is identified. EJECTION FRACTION STUDY EF = 50% WALL MOTION CINE Homogeneous wall motion, with normal systolic wall thickening and no hypokinetic segments. IMPRESSION: 1. No evidence of reversible ischemia. 2. Findings consistent with infarction or scar at inferoseptal region, small. BETO Crowley POS: [facility]
[2017-07-07] MEDS ORDERED: Bisacodyl 5 MG TAB PO PRN (17:31)
--- NOTE | 2017-07-07 18:19 | PRG ---
DATE OF SERVICE: 07/07/2017 SUBJECTIVE: Ms. Mirza feels much better. Her shortness of breath has improved. PHYSICAL EXAMINATION: VITAL SIGNS: Blood pressure 165/77, pulse 89, temperature 98. LUNGS: Clear to auscultation. HEART: Regular rate and rhythm. ABDOMEN: Soft, nontender, nondistended. EXTREMITIES: Decreased edema. PERTINENT LABS: Hemoglobin 7.6, creatinine 5.98. Stress rest myocardial perfusion study, LVEF 50% with scar present to the anteroseptal region in a s mall area. IMPRESSION: 1. Malignant hypertension. 2. Chronic kidney disease, stage 5. 3. Shortness of breath. 4. Edema. RECOMMENDATIONS: Ms. Mirza's stress study is felt to be low risk. Her LVEF is normal. She has a s mall area of scar. We will continue medical therapy. We would not feel the need to proceed with co ronary angiography. Blood pressure appears to be improved. Recommendations on blood pressure manag ement per Nephrology. Again, we will defer angiography at this time due to this being a low risk sc an.
--- NOTE | 2017-07-07 20:50 | HP ---
HISTORY OF PRESENT ILLNESS: She Mirza is a 66-year-old female who lives in [place]. Patient is . She has mobility problems negotiating on a wheeled walker due to lumbar surgery, bila teral hip replacements. She was followed Dr. Davis, urologist in the past and told that she had m ild kidney disease. She has a history of insulin-dependent diabetes mellitus and hypertension. She is admitted this hospitalization because of dyspnea. Echocardiogram revealed a 40-45% ejection fra ction with mild mitral valve dysfunction. Dr. Nettles has seen her and cardiac stress test perfor [facility]. Results pending. Patient reports having had a cardiac stress test by Dr. Fry a year ago that was normal, performed prior to her lumbar surgery, which was performed in [place]. She denies any known past cardiac history. The patient has been seeing Dr. Corona for GFR of 7. She is in need of initiating dialysis. The patient had an IV in left antecubital area which I have asked them to remove today. This has been moved to her left hand. Clinical exam reveals a thrombosed antecubital vein. Ultrasound confirms this. Ultrasound vein mapping both arms suggest the right upper extremi ty to be suitable for a fistula. Vein mapping reveals vein to be 4 mm, 3.9 mm, 3.1 mm, 3.3 mm antec ubital fossa, 3 mm proximal forearm, 2.1 mid forearm, 1.7 distal forearm. Basilic vein was 5.6, 3.9 , 5.3 and 3.8 and 3.5 and 3.4 in left arm. As noted above, left arm reveals 2.7, 1.2, 1.8 thrombose d vein antecubital area. Basilic vein 4.5, 4.9, 4.0, 4.5 mm antecubital fossa. Plan at this time a fter discussing these issues with the patient were to proceed tomorrow with placement of a hemodialy sis catheter, possible central line and right arm primary fistula under regional anesthesia TIVA. R isk of infection, bleeding, reoperation and thrombosed fistula, possible for staged planned revision s such as transposition may be necessary. Patient is obese. Patient has lost 80 pounds intentionally in the last few months. 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 She is 5 foot 5 inches, 228 pounds, 37 BMI. ALLERGIES: CHLORHEXIDINE, MORPHINE. TOBACCO: None. ALCOHOL: None. MEDICATIONS: Insulin at home acetaminophen, gabapentin, amlodipine, tramadol. She has sliding scal e currently. PAST SURGICAL HISTORY: Bilateral hip replacements, lumbar surgery, hysterectomy, cataract surgery. PAST MEDICAL HISTORY: Insulin-dependent diabetes mellitus, hypertension, dyslipidemia, diabetes lj litus, metabolic syndrome. PHYSICAL EXAMINATION VITAL SIGNS: Height 5 feet 5 inches, 228 pounds, 37 BMI, 98 degrees, 89 pulse, blood pressure 165/7 7. HEENT: Unremarkable. LUNGS: Clear to auscultation. CARDIAC: Rhythm without murmur or gallop. ABDOMEN: Soft, obese, nontender. EXTREMITIES: Unremarkable. Palpable radial pulses bilaterally. Left antecubital area thrombosed a ntecubital vein secondary iatrogenic IV which has been removed. She has a Hep-Lock in her left hand . ASSESSMENT AND PLAN: 1. End-stage renal disease, GFR 7. I have discussed with her recommendations for placement of hemo dialysis catheter in right arm fistula. We will have to user her dominant arm since iatrogenically the left antecubital vein has thrombosed secondary to Hep-Lock IV access. This has been since remov ed. I instructed her to avoid IV access, blood draws above her wrist and preserve her veins for fut ure dialysis access. She understands risks of infection, bleeding, reoperation, possibility she milind ht need revision or transposition due to her obesity. Questions answered. Patient may be a valentin te for peritoneal dialysis in the future and this can be considered later. 2. Cardiac stress test pending. 3. Insulin-dependent diabetes mellitus. 4. Hypertension. 5. Dyslipidemia. 6. Metabolic syndrome.
[2017-07-08] MEDS: Furosemide 20 MG/2 ML VIAL SLOW IVP SCH ×2 (05:23→18:06)
[2017-07-08] MEDS: Carvedilol 3.125 MG TAB PO SCH (05:24)
[2017-07-08] MEDS ORDERED: Carvedilol 3.125 MG TAB PO SCH (07:34)
[2017-07-08 08:10] LABS: Anion Gap 13 mmol/L (10-20); BUN (Urea Nitrogen) 70 mg/dL (9.8-20.1); Calc. Creatinine Clearance 14 mL/min (70-130); Calcium 7.9 mg/dL (7.8-10.44); Carbon Dioxide 22 mmol/L (23-31); Chloride 107 mmol/L (98-107); Estimated GFR-MDRD 7
--- NOTE | 2017-07-08 08:29 | PRG ---
Patient Name: EMANI EGAN Date of service: 07/08/2017 Subjective: Patient was seen and examined at bedside and overnight events noted. Patient denies any shortness of breath or chest pain or palpitation. No history of nausea or vomiting or diarrhea or fever or chills or cramps. Objective: General: This is a morbidly obese white female in no apparent distress. Vital signs: Temperature 97, pulse 87, respirations 16, blood pressure 179/81. HEENT: Atraumatic, normocephalic. Oral mucosa is moist. Neck: Supple. Cardiovascular: S1 S2 heard. Rate and rhythm regular. Respiratory: Clear to auscultation. Gastrointestinal: Abdomen is soft. Musculoskeletal: No tenderness. No edema. Dermatologic: No skin rash. Neurologic: Alert and awake and oriented X3. No focal neurologic deficits. Moving all the extremi ties. Psychiatric: Mood and affect normal. LABORATORY DATA: Potassium is 4.4, BUN 66, creatinine is 5.9. These labs were from yesterday. ASSESSMENT AND PLAN: 1. Acute kidney injury on chronic kidney disease stage 5. Renal function needs to be checked today , labs ordered. We will follow. The patient is still undecided about dialysis, wants to talk with her daughter also who will be here today and wants to know the labs today. Surgeon already consulte d and vein mapping done. Dr. Corona also talked with the family. 2. Cardiorenal syndrome. Plan is not to have any heart catheterization so far. 3. Metabolic acidosis. 4. Hypertension. We will increase amlodipine and Coreg dose. 5. Anemia. We will add Epogen for chronic kidney disease. 6. Secondary hyperparathyroidism of renal origin. The patient is still undecided on dialysis. Appreciate help from Surgery and will check labs today and follow up with the family regarding decision moving forward. We will follow.
[2017-07-08] MEDS ORDERED: Polyethylene Glycol 3350 17 GM Packet PO SCH (09:30)
[2017-07-08] MEDS: Carvedilol 6.25 MG TAB PO SCH ×2 (09:59→22:38)
[2017-07-08] MEDS ORDERED: Epoetin (ESRD) 10,000 UNITS/ML VIAL SC SCH (10:00)
[2017-07-08] MEDS: Amlodipine 10 MG TAB PO SCH (10:00)
[2017-07-08] MEDS ORDERED: Epoetin (ESRD) 20,000 UNITS/ML SC SCH (10:00)
--- NOTE | 2017-07-08 10:02 | PRG ---
DATE OF SERVICE: 07/07/2017 SERVICE: Pulmonary Medicine INTERVAL HISTORY: The patient is doing outstanding from a cardiovascular and respiratory standpoint . She is on room air. She denies having any shortness of breath. She is requesting to keep her Fo january catheter in while we are diuresing her, but I have suggested that it does need to come out. Oth erwise, she has no specific complaints. There were no overnight events. PHYSICAL EXAMINATION: VITAL SIGNS: Afebrile, pulse 94, blood pressure 115/72, respirations 18, saturation 94% on room air . GENERAL: The patient is awake, alert, in no apparent distress. LUNGS: Decent air entry. No prolonged expiratory phase, wheezing, rhonchi or crackles. HEART: Normal rate, regular. ABDOMEN: Soft, nontender, nondistended. Bowel sounds are positive. MUSCULOSKELETAL: No cyanosis or clubbing. There is more pitting in the bilateral lower extremities . GENITOURINARY: Nieves catheter in place. NEUROLOGIC: Grossly nonfocal. LABORATORY DATA: WBC 7.3, hemoglobin 7.6, platelets 197,000. Creatinine 6.04 and trending upward g ently. Basic metabolic profile is otherwise unremarkable. IMAGING: Chest x-ray demonstrates cardiomegaly with pulmonary vasculature more prominent. This is improved compared to prior exam. The pleural effusions are smaller compared to prior. ASSESSMENT: 1. Acute hypoxic respiratory failure, resolved. 2. Volume overload secondary to chronic kidney disease and heart disease. 3. Chronic kidney disease, progressing to end-stage renal disease. 4. Bilateral pleural effusions, getting smaller. PLAN: At this point, she has no further requirements for inpatient Pulmonary Critical Care opinion. As such, I will sign off. Please call with additional questions or concerns moving forward. Beatriz hernandez, she will need a repeat chest x-ray in 2-4 weeks in the outpatient setting once she arrives c loser to euvolemia. If the effusion persists and gets larger, thoracentesis needs to be considered. If she gets into any breathing trouble, please give me a phone call sooner.
[2017-07-08] MEDS: Sodium Bicarbonate Tab 325 MG TAB PO SCH ×3 (10:09→22:39)
--- NOTE | 2017-07-08 10:11 | PDOC.PN ---
- Subjective Encounter Start Date: 07/08/17 Encounter Start Time: 07:00 Pt seen for acute on chronic renal failure. Says she slept okay. Denies chest pain, nausea or vomiting. No abdo pain. - Objective Resuscitation Status: Resuscitation Status FULL:Full Resuscitation MAR Reviewed: Yes Vital Signs & Weight: Vital Signs (12 hours) Temp Pulse Pulse Pulse Resp BP BP 07/08/17 10:00 87 07/08/17 09:26 86 85 185/81 H 181/80 H 07/08/17 07:36 97.2 F L 87 16 07/08/17 04:22 98.7 F 90 18 BP Pulse Ox Pulse Ox Pulse Ox 07/08/17 10:00 07/08/17 09:26 94 L 95 07/08/17 07:36 179/81 H 95 07/08/17 04:22 174/81 H 94 L Weight Admit Weight 235 lb 1.6 oz Weight 217 lb 6.4 oz I&O: 07/07/17 07/08/17 07/09/17 06:59 06:59 06:59 Intake Total 840 120 Output Total 1875 900 Balance -1035 -780 Result Diagrams: 07/07/17 06:02 07/08/17 07:35 Additional Labs: Accuchecks 07/07/17 07/07/17 07/07/17 20:46 18:24 11:21 POC Glucose 195 H 169 H 115 H EKG Reviewed by me: Yes (Tele: NSR) Phys Exam - Physical Examination Obese HEENT: moist MMs, sclera anicteric, oral pharynx no lesions Neck: supple, full ROM Respiratory: no wheezing, no rales, no rhonchi, clear to auscultation bilateral Cardiovascular: RRR, no rub Gastrointestinal: soft, non-tender, no distention, positive bowel sounds Musculoskeletal: pulses present, edema present Neurological: moves all 4 limbs Lymphatic: no nodes Psychiatric: normal affect, A&O x 3 Skin: no rash, normal turgor, cap refill <2 seconds Dx/Plan (1) Acute on chronic renal failure Code(s): N17.9 - ACUTE KIDNEY FAILURE, UNSPECIFIED; N18.9 - CHRONIC KIDNEY DISEASE, UNSPECIFIED Status: Acute Qualifiers: Acute renal failure type: unspecified Chronic kidney disease stage: stage 5 , not on chronic dialysis Qualified Code(s): N17.9 - Acute kidney failure, unspecified; N18.5 - Chronic kidney disease, stage 5; N18.5 - Chronic kidney disease, stage 5; N18.5 - Chronic kidney disease, stage 5; N18.5 - Chronic kidney disease, stage 5 (2) Acute exacerbation of CHF (congestive heart failure) Code(s): I50.9 - HEART FAILURE, UNSPECIFIED Status: Acute Qualifiers: Congestive heart failure type: combined Qualified Code(s): I50.43 - Acute on chronic combined systolic (congestive) and diastolic (congestive) heart failure (3) Herpes zoster Code(s): B02.9 - ZOSTER WITHOUT COMPLICATIONS Status: Acute (4) Diabetes type 2, uncontrolled Code(s): E11.65 - TYPE 2 DIABETES MELLITUS WITH HYPERGLYCEMIA Status: Chronic Qualifiers: Diabetes mellitus complication status: with kidney complications Diabetes mellitus complication detail: with nephropathy Diabetes mellitus half-way insulin use: with crystallography teacher use Qualified Code(s): E11.21 - Type 2 diabetes mellitus with diabetic nephropathy; E11.65 - Type 2 diabetes mellitus with hyperglycemia; E11.65 - Type 2 diabetes mellitus with hyperglycemia; E11.65 - Type 2 diabetes mellitus with hyperglycemia; E11.65 - Type 2 diabetes mellitus with hyperglycemia; Z79.4 - assisted (current) use of insulin; Z79.4 - digital media specialist (current) use of insulin; Z79.4 - assisted (current) use of insulin; Z79.4 - assisted (current) use of insulin (5) HTN (hypertension) Code(s): I10 - ESSENTIAL (PRIMARY) HYPERTENSION Status: Chronic (6) Acute respiratory failure with hypoxia Code(s): J96.01 - ACUTE RESPIRATORY FAILURE WITH HYPOXIA Status: Resolved - Plan plan discussed w/ family, PT/OT, out of bed/ambulate, DVT proph w/heparin * . Discussed with patient and daughter. Pt decided to go for dialysis. Continue diuretics for now. Discussed with nephrology service, will resume acyclovir, renal-adjusted dose. Monitor vital signs and titrate antihypertensives as needed. Continue insulin sliding scale, accuchecks. Review of Systems - Review of Systems Constitutional: negative: Fever, Chills, Sweats, Weakness, Malaise Respiratory: negative: Cough, Dry, Shortness of Breath, Hemoptysis, SOB with Excertion, Pleuritic Pain, Sputum, Wheezing Cardiovascular: negative: Chest Pain, Palpitations, Orthopnea, Paroxysmal Noc. Dyspnea, Edema, Light Headedness Gastrointestinal: negative: Nausea, Vomiting, Abdominal Pain, Diarrhea, Constipation, Melena, Hematochezia Genitourinary: negative: Dysuria, Frequency, Incontinence, Hematuria, Retention - Medications/Allergies Allergies/Adverse Reactions: Allergies Allergy/AdvReac Type Severity Reaction Status Date / Time chlorhexidine Allergy Rash Verified 09/05/16 10:47 morphine Allergy Nausea Verified 09/05/16 10:47 Medications: Current Medications Amlodipine Besylate (Norvasc) 10 mg PO DAILY [facility] Last Admin: 07/08/17 10:00 Dose: 10 mg Bisacodyl (Dulcolax) 10 mg PO DAILYPRN PRN PRN Reason: CONSTIPATION Carvedilol (Coreg) 12.5 mg PO BID [facility] Last Admin: 07/08/17 09:59 Dose: 12.5 mg Cefazolin Sodium (Ancef) 2 gm SLOW IVP [facility] Stop: 07/08/17 16:31 Clonidine HCl (Catapres) 0.1 mg PO Q6H PRN PRN Reason: Hypertension Last Admin: 07/07/17 09:16 Dose: 0.1 mg Dextrose/Water (Dextrose 50%) 25 gm SLOW IVP PRN PRN PRN Reason: Hypoglycemia Epoetin Nestor (Procrit) 10,000 units SC Q7D [facility] Last Admin: 07/08/17 09:59 Dose: 10,000 units Furosemide (Lasix) 40 mg SLOW IVP 0600,1400 [facility] Last Admin: 07/08/17 05:23 Dose: 40 mg Glucagon (Glucagon) 1 mg IM PRN PRN PRN Reason: Hypoglycemia Dextrose/Water (D5w) 1,000 mls @ 0 mls/hr IV .Q0M PRN; As Directed PRN Reason: Hypoglycemia Insulin Human Lispro (Humalog) 0 units SC .MILD SLIDING SCALE PRN PRN Reason: Mild Correctional Scale Labetalol HCl (Normodyne) 20 mg SLOW IVP Q4H PRN PRN Reason: Hypertension Last Admin: 07/06/17 18:36 Dose: 20 mg Read Ppd Test Site 0 each PO ONE [facility] Stop: 07/09/17 09:01 Polyethylene Glycol (Miralax) 17 gm PO DAILY [facility] Polyethylene Glycol (Miralax) 17 gm PO ONE [facility] Stop: 07/08/17 11:00 Sodium Bicarbonate (Bicarbonate, Sodium) 325 mg PO TID [facility] Last Admin: 07/08/17 10:09 Dose: 325 mg Sodium Chloride (Flush - Normal Saline) 10 ml IVF PRN PRN PRN Reason: Saline Flush Last Admin: 07/06/17 15:06 Dose: 10 ml Tramadol HCl (Ultram) 50 mg PO Q6H PRN PRN Reason: Pain Last Admin: 07/06/17 17:12 Dose: 50 mg
[2017-07-08 11:21] LABS: A/G Ratio 0.6 (0.7-1.7); Albumin 2.2 g/dL (2.9-4.4); Alpha 1 0.4 g/dL (0.0-0.4); Alpha 2 1.2 g/dL (0.4-1.0); Gamma 1.3 g/dL (0.4-1.8); Globulin, Total 3.9 g/dL (2.2-3.9); M-Spike 0.3 g/dL (Not Observed)
[2017-07-08] MEDS ORDERED: CEFAZOLIN/Water 2 GM/20 ML SYRINGE ONE (11:50)
[2017-07-08] MEDS ORDERED: Protamine Sulfate 50 MG/5 ML VIAL ONE (12:14)
[2017-07-08] MEDS ORDERED: Heparin 10,000 UNITS/1 ML VIAL ONE (12:14)
[2017-07-08] MEDS ORDERED: Sodium Chloride 0.9% 20 ML ONE (12:14)
[2017-07-08] MEDS ORDERED: Heparin 5,000 UNITS/ML VIAL ONE (12:14)
[2017-07-08] MEDS ORDERED: Bupivacaine 0.25% HCL 30 ML VIAL ONE (12:19)
[2017-07-08] MEDS ORDERED: Lidocaine 1% w/Epinephrine 1:200K 30 ML VIAL ONE (12:20)
[2017-07-08] MEDS ORDERED: Clindamycin/D5W 900 mg/50 ml Premix Bag ONE (13:11)
[2017-07-08] MEDS ORDERED: Levofloxacin 500 mg/D5W 100 ml Premix Bag ONE (13:11)
[2017-07-08] MEDS ORDERED: Scopolamine 1.5 mg/72 hour Patch ONE (13:16)
[2017-07-08] MEDS ORDERED: Fentanyl 100 MCG/2 ML VIAL ONE (13:20)
[2017-07-08] MEDS ORDERED: Acetaminophen 500 MG TAB PO PRN ×2 (13:36→14:33)
[2017-07-08] MEDS ORDERED: Ondansetron HCl/PF 4 MG/2 ML Vial ONE (13:55)
[2017-07-08] MEDS ORDERED: Glycopyrrolate 0.2 MG/ML 5 ML SYRINGE ONE (13:55)
[2017-07-08] MEDS ORDERED: Propofol 200 MG/20 ML VIAL ONE (13:55)
[2017-07-08] MEDS ORDERED: Metoclopramide HCl 10 MG/2 ML VIAL ONE (13:55)
[2017-07-08] MEDS ORDERED: Lidocaine 1% PF 5 ML VIAL ONE (13:55)
[2017-07-08] MEDS ORDERED: PHENYLEPHRINE-NS 100 MCG/ML 10 ML SYRINGE ONE (13:55)
[2017-07-08] MEDS ORDERED: Promethazine HCl 25 MG/ML VIAL SLOW IVP PRN (15:41)
[2017-07-08] MEDS ORDERED: Promethazine HCl 25 MG/ML VIAL IM PRN (15:41)
[2017-07-08] MEDS ORDERED: Ondansetron HCl/PF 4 MG/2 ML Vial IVP PRN (15:41)
--- NOTE | 2017-07-08 17:44 | OP ---
DATE OF PROCEDURE: 07/08/2017 PREOPERATIVE DIAGNOSES: End-stage renal disease, morbid obesity, metabolic syndrome, diabetes melli tus, insulin dependent, hypertension, thrombosed left antecubital vein iatrogenic from IV access, IV removed from right deltoid cephalic vein on my arrival, poor IV access. POSTOPERATIVE DIAGNOSES: End-stage renal disease, morbid obesity, metabolic syndrome, diabetes yanni itus, insulin dependent, hypertension, thrombosed left antecubital vein iatrogenic from IV access, I V removed from right deltoid cephalic vein on my arrival, poor IV access. PROCEDURE: Ultrasound and fluoroscopy guidance for placement of left and right internal jugular vei n central line, central line left, hemodialysis cuffed tunneled catheter, angiodynamics precurved, r ight. Fluoroscopy revealed good line placement bilaterally, right arm primary fistula, perforating branch antecubital vein to proximal radial artery which was of excellent caliber, outflow cephalic v ein, small branch to the basilic vein clipped, retrograde antecubital vein preserved, 4 mm coronary artery dilator calibration, cephalic vein outflow. SURGEON: Dr. Wyatt Cifuentes. ANESTHESIA: General. Local 0.5% Marcaine without epinephrine, 2% Xylocaine. PROCEDURE IN DETAIL: Patient was taken to the operating room where under general anesthesia, neck, chest, right upper extremity and axilla were prepared with ChloraPrep, draped in routine fashion. L ocal anesthetic infiltrated into skin and subcutaneous tissue about the operative site. Using ultra sound guidance, right and left internal jugular veins were cannulated with trocar catheter and J-wir e threaded. Trocar catheter removed. Skin incised and enlarged sharply bilaterally on the left. D ilator placed and removed over the J-wire into the internal jugular vein and the distal port of trip le lumen catheter placed over the J-wire into the superior vena cava, securing the catheter sutures of 3-0 nylon. Biopatch sterile dressing applied. Each port aspirated blood and flushed with saline solution. On the right side, a stab incision was made over the right chest infraclavicular exit site and using the tunneling device, precurved angiodynamics cuffed tunnel hemodialysis catheter tunneled between the two incisions, placing the fabric cuff beneath the skin exit site and catheter secured with 2 in terrupted sutures of 3-0 nylon and a Biopatch applied. Smaller and medium sized dilators placed ove r the J-wire into the internal jugular vein and removed. Dilator and pull-away sheath placed over t he J-wire into the superior vena cava and dilator and J-wire removed. Catheter placed with a pull-a way sheath and the pull-away sheath removed. Fluoroscopically, catheter noted to be in good positio n. Platysma approximated with 4-0 Monocryl, skin with subdermal 4-0 Monocryl. DermaGlue and steril e dressings applied. Each port aspirated blood and flushed with saline solution and heparinized steve ine solution 1000 units of heparin per mL indicated volume of the port. Attention was then turned to the right upper extremity. Incision was made in the proximal volar for earm longitudinally just below the antecubital fossa and carried down through the skin and subcutane ous tissue. Antecubital vein dissected free. Perforating branch dissected free and branches divide d between 4-0 silk ties and clips and the most perforating branch was dissected free down into the d epths of the wound, it was spatulated over branch points and interrogated with coronary dilators, pa ssing coronary dilators from a 2 mm to a 4 mm coronary dilator out the cephalic vein outflow without obstruction. The basilic vein had a small communicator and this was clipped. Proximal radial azael ry dissected free, perforating branch probably ulnar artery dissected free. The artery was of excel lent caliber. The patient was given 5000 units of heparin intravenously. After adequate circulatio n time, the artery was clamped proximally and distally and longitudinal arteriotomy made sharply, an d end vein to proximal radial artery anastomosis created with continuous suture of 6-0 Prolene. Onc e this was completed, vascular clamps released. There was excellent flow in the fistula interrogate d by Doppler outflow cephalic vein. Good hemostasis noted. Surgicel applied. Patient was given 25 mg of protamine intravenously. Retrograde antecubital vein was preserved. The cephalic vein was o f excellent caliber. Subcutaneous tissues approximated with 3-0 Monocryl, skin with subdermal 4-0 M onocryl and DermaGlue applied.
--- NOTE | 2017-07-08 20:29 | RAD ---
PORTABLE AP CHEST X-RAY 07/08/17 HISTORY: Central line placement. COMPARISON: 07/07/17 FINDINGS: There has been interval placement of a tunneled right internal jugular vein hemodialysis catheter wi th tip overlying the cavoatrial junction. A left internal jugular vein central venous catheter has a lso been placed in the interim with the tip overlying the right atrium. The cardiac silhouette is magnified by projection. There is mild pulmonary vascular congestion. Ther e are mild increased interstitial markings bilaterally as well as veil-like opacities seen involving the mid lung jacob and each lung base which could be related to pleural fluid layering posteriorly . There is osteopenia. No pneumothorax is seen. IMPRESSION: 1. Interval placement of right jugular vein hemodialysis catheter as well as left internal jugu lar vein central venous catheter. Tip of the central venous catheter overlies the right atrium. 2. Bilateral pleural effusions. 3. Increased linear densities bilaterally which could be related to areas of scarring or atelec tasis. Followup evaluation is suggested. POS: BRIGIDA
[2017-07-08] MEDS: Acyclovir 200 mg Capsule PO SCH (22:38)
[2017-07-08] MEDS: traMADol HCl 50 MG TAB PO PRN (22:39)
[2017-07-09] MEDS: traMADol HCl 50 MG TAB PO PRN ×2 (04:55→13:08)
[2017-07-09] MEDS: Furosemide 20 MG/2 ML VIAL SLOW IVP SCH ×2 (06:10→13:09)
[2017-07-09] MEDS ORDERED: READ PPD TEST SITE PO SCH (09:00)
--- NOTE | 2017-07-09 09:03 | PRG ---
DATE OF SERVICE: 07/09/2017 SUBJECTIVE: Patient was seen and examined at bedside and overnight events noted. Patient denies an y shortness of breath or chest pain or palpitation. No history of nausea or vomiting or diarrhea or fever or chills or cramps. OBJECTIVE: GENERAL: This is a morbidly obese white female in no apparent distress. VITAL SIGNS: Temperature 98, pulse 84, respiratory rate 20, and blood pressure 116/58. HEENT: Atraumatic, normocephalic. Oral mucosa is moist. NECK: Supple. CARDIOVASCULAR: S1 and S2 heard, rate and rhythm regular. RESPIRATORY: Clear to auscultation. GASTROINTESTINAL: Abdomen is soft. MUSCULOSKELETAL: 1+ edema. DERMATOLOGIC: No skin rash. NEUROLOGIC: Alert and awake and oriented X3. No focal neurologic deficits. Moving all the extremi ties. PSYCHIATRIC: Mood and affect normal. LABORATORY DATA: No labs done today. ASSESSMENT AND PLAN: 1. End-stage renal disease, started on hemodialysis yesterday and tolerated it well. We will have 2 hours of dialysis. Plan is to have extra session of dialysis. We will have case management consu lt for outpatient dialysis placement. Appreciate help from Surgery. She had a fistula placement an d a tunneled dialysis catheter. 2. PPD placed and we will order for outpatient dialysis placement. 3. Cardiorenal syndrome. We will continue dialysis as tolerated. 4. Metabolic acidosis. We will have dialysis. 5. Hypertension, stable. 6. Anemia. 7. Secondary hyperparathyroidism. We will start medications; Zemplar with dialysis. 8. Anemia. Start her on Epogen with dialysis. 9. We will follow.
[2017-07-09] MEDS: Amlodipine 10 MG TAB PO SCH (11:54)
[2017-07-09] MEDS: Sodium Bicarbonate Tab 325 MG TAB PO SCH ×3 (11:55→21:21)
[2017-07-09] MEDS: Carvedilol 6.25 MG TAB PO SCH ×2 (11:55→21:21)
[2017-07-09] MEDS: Epoetin (NON-ESRD) 20,000 UNITS/ML ML IVP SCH (12:13)
[2017-07-09] MEDS: Polyethylene Glycol 3350 17 GM Packet PO SCH (13:10)
[2017-07-09] MEDS: Acyclovir 200 mg Capsule PO SCH ×2 (13:11→21:21)
--- NOTE | 2017-07-09 13:14 | PDOC.PN ---
- Subjective Encounter Start Date: 07/09/17 Encounter Start Time: 08:00 Pt seen for followup re: acute on chronic renal failure. Denies chest pain, shortness of breath, fevers or chills. - Objective Resuscitation Status: Resuscitation Status FULL:Full Resuscitation MAR Reviewed: Yes Vital Signs & Weight: Vital Signs (12 hours) Temp Pulse Resp BP Pulse Ox 07/09/17 13:00 98.8 F 140 H 18 137/60 95 07/09/17 08:50 100.2 F H 94 17 148/69 H 97 07/09/17 04:00 100.0 F H 91 20 129/61 92 L Weight Admit Weight 235 lb 1.6 oz Weight 202 lb 8 oz I&O: 07/08/17 07/09/17 07/10/17 06:59 06:59 06:59 Intake Total 120 480 Output Total 900 1000 Balance -780 -520 Result Diagrams: 07/07/17 06:02 07/08/17 07:35 Additional Labs: Accuchecks 07/09/17 07/09/17 07/08/17 12:06 06:47 20:59 POC Glucose 140 H 121 H 127 H 07/08/17 05:00 POC Glucose 116 H EKG Reviewed by me: Yes (Tele: NSR) Phys Exam - Physical Examination Constitutional: NAD HEENT: moist MMs, oral pharynx no lesions Neck: supple Respiratory: clear to auscultation bilateral Cardiovascular: RRR Dialysis catheter present Gastrointestinal: soft Musculoskeletal: pulses present Psychiatric: normal affect Skin: no rash Dx/Plan (1) Acute on chronic renal failure Code(s): N17.9 - ACUTE KIDNEY FAILURE, UNSPECIFIED; N18.9 - CHRONIC KIDNEY DISEASE, UNSPECIFIED Status: Acute Qualifiers: Acute renal failure type: unspecified Chronic kidney disease stage: stage 5 , not on chronic dialysis Qualified Code(s): N17.9 - Acute kidney failure, unspecified; N18.5 - Chronic kidney disease, stage 5; N18.5 - Chronic kidney disease, stage 5; N18.5 - Chronic kidney disease, stage 5; N18.5 - Chronic kidney disease, stage 5 (2) Acute exacerbation of CHF (congestive heart failure) Code(s): I50.9 - HEART FAILURE, UNSPECIFIED Status: Acute Qualifiers: Congestive heart failure type: combined Qualified Code(s): I50.43 - Acute on chronic combined systolic (congestive) and diastolic (congestive) heart failure (3) Herpes zoster Code(s): B02.9 - ZOSTER WITHOUT COMPLICATIONS Status: Acute (4) Diabetes type 2, uncontrolled Code(s): E11.65 - TYPE 2 DIABETES MELLITUS WITH HYPERGLYCEMIA Status: Chronic Qualifiers: Diabetes mellitus complication status: with kidney complications Diabetes mellitus complication detail: with nephropathy Diabetes mellitus assisted insulin use: with assisted use Qualified Code(s): E11.21 - Type 2 diabetes mellitus with diabetic nephropathy; E11.65 - Type 2 diabetes mellitus with hyperglycemia; E11.65 - Type 2 diabetes mellitus with hyperglycemia; E11.65 - Type 2 diabetes mellitus with hyperglycemia; E11.65 - Type 2 diabetes mellitus with hyperglycemia; Z79.4 - terminologist (current) use of insulin; Z79.4 - terminologist (current) use of insulin; Z79.4 - snf (current) use of insulin; Z79.4 - terminologist (current) use of insulin (5) HTN (hypertension) Code(s): I10 - ESSENTIAL (PRIMARY) HYPERTENSION Status: Chronic (6) Acute respiratory failure with hypoxia Code(s): J96.01 - ACUTE RESPIRATORY FAILURE WITH HYPOXIA Status: Resolved - Plan PT/OT, out of bed/ambulate, DVT proph w/heparin * . Pt started on dialysis yesterday, had dialysis catheter placed yesterday. Consult PT. Continue diuretics. Continue acyclovir. Continue insulin sliding scale. Review of Systems - Review of Systems Constitutional: negative: Fever, Chills, Sweats, Weakness, Malaise Respiratory: negative: Cough, Dry, Shortness of Breath, Hemoptysis, SOB with Excertion, Pleuritic Pain, Sputum, Wheezing Cardiovascular: negative: Chest Pain, Palpitations, Orthopnea, Paroxysmal Noc. Dyspnea, Edema, Light Headedness, Other - Medications/Allergies Allergies/Adverse Reactions: Allergies Allergy/AdvReac Type Severity Reaction Status Date / Time chlorhexidine Allergy Rash Verified 09/05/16 10:47 morphine Allergy Nausea Verified 09/05/16 10:47 Medications: Current Medications Acetaminophen (Tylenol) 1,000 mg PO Q6H PRN PRN Reason: Moderate to Severe Pain (6-10) Acyclovir (Zovirax) 200 mg PO BID [facility] Stop: 07/15/17 21:01 Last Admin: 07/08/17 22:38 Dose: 200 mg Amlodipine Besylate (Norvasc) 10 mg PO DAILY [facility] Last Admin: 07/09/17 11:54 Dose: Not Given Bisacodyl (Dulcolax) 10 mg PO DAILYPRN PRN PRN Reason: CONSTIPATION Carvedilol (Coreg) 12.5 mg PO BID [facility] Last Admin: 07/09/17 11:55 Dose: Not Given Clonidine HCl (Catapres) 0.1 mg PO Q6H PRN PRN Reason: Hypertension Last Admin: 07/07/17 09:16 Dose: 0.1 mg Dextrose/Water (Dextrose 50%) 25 gm SLOW IVP PRN PRN PRN Reason: Hypoglycemia Epoetin Nestor (Procrit) 10,000 units IVP [facility] Last Admin: 07/09/17 12:13 Dose: 10,000 units Furosemide (Lasix) 40 mg SLOW IVP 0600,1400 [facility] Last Admin: 07/09/17 06:10 Dose: 40 mg Glucagon (Glucagon) 1 mg IM PRN PRN PRN Reason: Hypoglycemia Dextrose/Water (D5w) 1,000 mls @ 0 mls/hr IV .Q0M PRN; As Directed PRN Reason: Hypoglycemia Insulin Human Lispro (Humalog) 0 units SC .MILD SLIDING SCALE PRN PRN Reason: Mild Correctional Scale Labetalol HCl (Normodyne) 20 mg SLOW IVP Q4H PRN PRN Reason: Hypertension Last Admin: 07/06/17 18:36 Dose: 20 mg Ondansetron HCl (Zofran) 4 mg IVP Q6H PRN PRN Reason: Nausea/Vomiting Polyethylene Glycol (Miralax) 17 gm PO DAILY [facility] Sodium Bicarbonate (Bicarbonate, Sodium) 325 mg PO TID [facility] Last Admin: 07/09/17 11:55 Dose: Not Given Sodium Chloride (Flush - Normal Saline) 10 ml IVF PRN PRN PRN Reason: Saline Flush Last Admin: 07/06/17 15:06 Dose: 10 ml Tramadol HCl (Ultram) 50 mg PO Q6H PRN PRN Reason: Pain Last Admin: 07/09/17 04:55 Dose: 50 mg
--- NOTE | 2017-07-09 13:47 | PRG ---
DATE OF SERVICE: 07/09/2017 SUBJECTIVE: Ms. Mirza is doing well. She is now undergoing dialysis. No chest pain or pressure no rika. She states she feels overall better. OBJECTIVE: VITAL SIGNS: Blood pressure 140/69, pulse 94, temperature 100.2. LUNGS: Clear to auscultation. HEART: Regular rate and rhythm. ABDOMEN: Soft, nontender, nondistended. EXTREMITIES: No edema. IMPRESSION: 1. Hypertension. 2. Shortness of breath. 3. End-stage renal disease. RECOMMENDATIONS: Ms. Mirza's recent stress study was negative for ischemia. She did have a small s car present in the septal wall. Plan is to follow up with Ms. Mirza as an outpatient. Otherwise, f rom my standpoint, I have no further recommendations.
[2017-07-09] MEDS ORDERED: Amiodarone HCl 150 MG, Admixture Fee 1 EACH in Dextrose 5% in Water 100 ML IVPB SCH ×3 (17:30)
[2017-07-09] MEDS: Ondansetron HCl/PF 4 MG/2 ML Vial IVP PRN (18:37)
[2017-07-09] MEDS: Amiodarone HCl 450 MG, Admixture Fee 1 EACH in Dextrose 5% in Water 250 ML IVPB SCH ×3 (19:10)
--- NOTE | 2017-07-09 19:19 | PRG ---
DATE OF SERVICE: 07/09/2017 Ms. Mirza is doing well today. She has good thrill and bruit in her right arm fistula. Hemodialysi s catheter is working well for dialysis. I have encouraged her to exercise the right arm. Surgical wounds look good. At this point, I will see the patient as needed. She is instructed to follow up with me in my office in 3-4 weeks. Left IJ central line can be removed prior to discharge, left an tecubital vein thrombosis due to iatrogenic access to treat symptomatically, asymptomatic currently and no treatment necessary.
[2017-07-09 23:11] LABS: Bilirubin, Total 0.2 mg/dL (0.2-1.2)
[2017-07-09 23:19] LABS: Protein, Total 5.5 g/dL (6.0-8.3)
[2017-07-09 23:21] LABS: Alkaline Phosphatase 62 U/L (40-150)
[2017-07-09 23:24] LABS: ALT (SGPT) 9 U/L (8-55); AST (SGOT) 23 U/L (5-34); Bilirubin, Direct 0.2 mg/dL (0.1-0.3)
[2017-07-10] MEDS: Amiodarone HCl 450 MG, Admixture Fee 1 EACH in Dextrose 5% in Water 250 ML IVPB SCH ×3 (01:57)
[2017-07-10] MEDS: Ondansetron HCl/PF 4 MG/2 ML Vial IVP PRN (02:03)
[2017-07-10 05:17] LABS: Citric Acid-Ur 51 mg/L (Undefined)
[2017-07-10] MEDS: Furosemide 20 MG/2 ML VIAL SLOW IVP SCH (06:12)
--- NOTE | 2017-07-10 06:32 | CON ---
DATE OF SERVICE: 07/09/2017 ELECTROPHYSIOLOGY CONSULTATION REPORT REFERRING PHYSICIAN: José Nettles M.D. I am seeing Ms. 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 New onset atrial fibrillation with rapid rates. 2. History of presentation with CHF-like symptoms, fluid overload. A 2D echo from 07/05/2017, EF o f 40%-45%, moderate mitral regurgitation, [id number] tricuspid regurgitation noted. 3. End-stage renal disease, on dialysis. 4. Coronary artery risk factors: A. Insulin-requiring diabetes mellitus. B. Hypertension. C. Dyslipidemia. D. Morbid obesity due to metabolic syndrome. 5. Nuclear stress test this admission demonstrates normal LVEF, A small scar, no ischemia. 6. History of pleural effusion, likely due to fluid overload. 7. Herpes zoster rash. ALLERGIES: CHLORHEXIDINE and MORPHINE. MEDICATIONS AT HOME: Included tramadol, amlodipine, gabapentin, Tylenol, currently she is also on a cyclovir, Norvasc, carvedilol 12.5 mg twice a day, Catapres, epoetin, Lasix, glucagon, Normodyne, Zo mike, MiraLax, tramadol. SUBJECTIVE: Ms. Mirza is here admitted on the with symptoms of fluid overload which was felt t o be due to kidney disease and she required expedited dialysis sessions after a new hemodialysis cat heter was placed. Since then, she is improving some. While on dialysis, she developed a rapid atri al fibrillation which is still persistent now. She has no prior history of atrial fibrillation prio r. Though she has dyspnea, she denies palpitations, but she does not feel palpitation now either. She does not pass out. No fever or chills are noted. She has significant lower extremity edema whi ch is getting better. She had PND and orthopnea which also are improving since on treatment. REVIEW OF SYSTEMS: Rest of 12-point review of systems is otherwise unremarkable. PAST MEDICAL HISTORY: As above. SOCIAL HISTORY: The patient denies smoking, ETOH, or drug abuse. FAMILY HISTORY: Noncontributory. OBJECTIVE DATA: VITAL SIGNS: Blood pressure is 137/60, heart rate 140, respirations 18, temperature 98.8 degrees Fa hrenheit. GENERAL: This is an alert and oriented woman, in no apparent distress. NECK: Supple. Jugular veins are not distended. CHEST: Coarse without crackles. CARDIAC: Heart sounds are irregularly irregular. S1 and S2 are variable. No murmur or gallop. ABDOMEN: Benign. Bowel sounds positive. EXTREMITIES: Lower extremities without edema, clubbing, or cyanosis. DATABASE: The EKGs were reviewed. Initial EKG reveals sinus rhythm, a rate of 80 beats per minute with no ST-T changes. Subsequent EKGs reveal sinus rhythm within this morning when present after so me , she develops atrial fibrillation with rapid rates. She has no prior history of atrial fibrillation. ASSESSMENT AND PLAN: 1. At this point, we will initiate rate-lowering medication agents, beta-blockers were initiated. She might require also diltiazem drip added on. Attention should be paid to hypertension with these agents, although for now, she is normotensive. 2. She has some left ventricular dysfunction based on her echocardiogram, although this might be a suboptimal test, but normal ejection fraction on stress test 2 days ago. She presented with heart f ailure symptoms and routine heart failure therapy might be reasonable for her. 2. Anticoagulation should be initiated for renal-dose Lovenox. 3. I discussed the option of cardioversion if no conversion occurs overnight. 4. For now, the patient is somewhat hesitant. If able to perform this within the next couple of day s, the patient will proceed to the cardioversion without transesophageal echocardiogram. 5. If the atrial fibrillation recurs, we might need to consider antiarrhythmic agents, possibly ami odarone would be a reasonable choice.
[2017-07-10] MEDS: Carvedilol 6.25 MG TAB PO SCH ×2 (09:20→22:14)
[2017-07-10] MEDS: Amlodipine 10 MG TAB PO SCH ×2 (09:20→22:14)
[2017-07-10] MEDS: Sodium Bicarbonate Tab 325 MG TAB PO SCH ×3 (09:20→22:14)
[2017-07-10] MEDS: Acyclovir 200 mg Capsule PO SCH ×2 (09:20→22:13)
[2017-07-10] MEDS: Polyethylene Glycol 3350 17 GM Packet PO SCH (09:21)
[2017-07-10] MEDS ORDERED: traMADol HCl 50 MG TAB PO PRN (10:08)
[2017-07-10] MEDS ORDERED: Acetaminophen 500 MG TAB PO PRN (10:08)
[2017-07-10] MEDS ORDERED: Promethazine HCl 25 MG/ML VIAL IM/IV SCH (10:15)
--- NOTE | 2017-07-10 10:20 | RAD ---
FRONTAL VIEW CHEST: COMPARISON: 07/08/17. INDICATION: Pre-cardioversion. FINDINGS: Redemonstration of enlargement of the cardiac silhouette and prominence of pulmonary vasculature. T here are bibasilar densities which may relate to pleural fluid and/or atelectasis/pneumonia. Right- sided tunneled vascular catheter remains. There is a coiled catheter tube at the expected region of the left IJ traversing to the right atrium. This is grossly stable. IMPRESSION: Findings indicate congestive heart failure with associated bibasilar opacities and edema. Recommend continued imaging followup. POS: [facility]
[2017-07-10] MEDS ORDERED: Promethazine HCl 12.5 MG, Admixture Fee 1 EACH in Sodium Chloride 0.9% 50 ML IVPB SCH (10:45)
--- NOTE | 2017-07-10 12:06 | PRG ---
DATE OF SERVICE: 07/10/2017 SUBJECTIVE: Patient was seen and examined at bedside and overnight events noted. Patient denies an y shortness of breath or chest pain or palpitation. No history of nausea or vomiting or diarrhea or fever or chills or cramps. OBJECTIVE: GENERAL: This is a well-built elderly female in no apparent distress. VITAL SIGNS: Temperature 97.8, pulse 80, respiratory 18, blood pressure 164/72. HEENT: Atraumatic, normocephalic. Oral mucosa is moist. NECK: Supple. CARDIOVASCULAR: S1 and S2 heard, rate and rhythm regular. RESPIRATORY: Clear to auscultation. GASTROINTESTINAL: Abdomen is soft. MUSCULOSKELETAL: No tenderness, no edema. DERMATOLOGIC: No skin rash. NEUROLOGIC: Alert and awake and oriented X3. No focal neurologic deficits. Moving all the extremi ties. PSYCHIATRIC: Mood and affect normal. LABORATORY DATA: Not done today. ASSESSMENT AND PLAN: 1. End-stage renal disease. Continue on dialysis as tolerated. 2. Cardiorenal syndrome. 3. Metabolic acidosis. 4. Hypertension. 5. Anemia. 6. hyperparathyroidism. 7. Recheck labs in the morning. Continue on dialysis as tolerated.
--- NOTE | 2017-07-10 12:55 | PDOC.PN ---
- Subjective Encounter Start Date: 07/10/17 Encounter Start Time: 09:00 Pt seen for followup re: end stage renal disease on dialysis. - Objective Resuscitation Status: Resuscitation Status FULL:Full Resuscitation MAR Reviewed: Yes Vital Signs & Weight: Vital Signs (12 hours) Temp Pulse Pulse Pulse Resp BP BP 07/10/17 10:49 97.8 F 80 18 07/10/17 10:21 85 80 134/74 07/10/17 09:20 82 153/70 H 07/10/17 09:00 99.1 F 82 18 07/10/17 05:31 07/10/17 04:00 98.6 F 87 18 BP BP Pulse Ox Pulse Ox 07/10/17 10:49 164/72 H 93 L 07/10/17 10:21 164/72 H 94 L 07/10/17 09:20 07/10/17 09:00 153/70 H 94 L 07/10/17 05:31 94 L 07/10/17 04:00 134/65 94 L Weight Admit Weight 235 lb 1.6 oz Weight 196 lb I&O: 07/09/17 07/10/17 07/11/17 06:59 06:59 06:59 Intake Total 480 480 Output Total 1000 1300 Balance -520 -820 Result Diagrams: 07/07/17 06:02 07/08/17 07:35 Additional Labs: Accuchecks 07/09/17 07/09/17 07/06/17 21:10 17:08 16:49 POC Glucose 160 H 138 H 111 H 07/06/17 13:58 POC Glucose 116 H EKG Reviewed by me: Yes (Tele: NSR) Phys Exam - Physical Examination Constitutional: NAD HEENT: moist MMs Neck: supple Respiratory: clear to auscultation bilateral Cardiovascular: RRR Gastrointestinal: soft, non-tender, positive bowel sounds Neurological: moves all 4 limbs Psychiatric: normal affect Skin: no rash Deviation from normal: Rush inner thigh skin thickening, ? mass Dx/Plan (1) Acute on chronic renal failure Code(s): N17.9 - ACUTE KIDNEY FAILURE, UNSPECIFIED; N18.9 - CHRONIC KIDNEY DISEASE, UNSPECIFIED Status: Acute Qualifiers: Acute renal failure type: unspecified Chronic kidney disease stage: stage 5 , not on chronic dialysis Qualified Code(s): N17.9 - Acute kidney failure, unspecified; N18.5 - Chronic kidney disease, stage 5; N18.5 - Chronic kidney disease, stage 5; N18.5 - Chronic kidney disease, stage 5; N18.5 - Chronic kidney disease, stage 5 (2) Acute exacerbation of CHF (congestive heart failure) Code(s): I50.9 - HEART FAILURE, UNSPECIFIED Status: Acute Qualifiers: Congestive heart failure type: combined Qualified Code(s): I50.43 - Acute on chronic combined systolic (congestive) and diastolic (congestive) heart failure (3) Herpes zoster Code(s): B02.9 - ZOSTER WITHOUT COMPLICATIONS Status: Acute (4) Diabetes type 2, uncontrolled Code(s): E11.65 - TYPE 2 DIABETES MELLITUS WITH HYPERGLYCEMIA Status: Chronic Qualifiers: Diabetes mellitus complication status: with kidney complications Diabetes mellitus complication detail: with nephropathy Diabetes mellitus intermodal truck driver insulin use: with intermodal truck driver use Qualified Code(s): E11.21 - Type 2 diabetes mellitus with diabetic nephropathy; E11.65 - Type 2 diabetes mellitus with hyperglycemia; E11.65 - Type 2 diabetes mellitus with hyperglycemia; E11.65 - Type 2 diabetes mellitus with hyperglycemia; E11.65 - Type 2 diabetes mellitus with hyperglycemia; Z79.4 - snf (current) use of insulin; Z79.4 - snf (current) use of insulin; Z79.4 - supervisor intermediates (current) use of insulin; Z79.4 - snf (current) use of insulin (5) HTN (hypertension) Code(s): I10 - ESSENTIAL (PRIMARY) HYPERTENSION Status: Chronic (6) Acute respiratory failure with hypoxia Code(s): J96.01 - ACUTE RESPIRATORY FAILURE WITH HYPOXIA Status: Resolved - Plan plan discussed w/ family, PT/OT, out of bed/ambulate, DVT proph w/heparin * . Pt converted to sinus rhythm. US of thighs to eveluate masses. Continue Epogen. Ambulate pt. Review of Systems - Review of Systems Constitutional: negative: Fever, Chills, Sweats, Weakness, Malaise Cardiovascular: negative: Chest Pain, Palpitations, Orthopnea, Paroxysmal Noc. Dyspnea, Edema, Light Headedness Gastrointestinal: Nausea. negative: Vomiting, Abdominal Pain, Diarrhea, Constipation, Melena, Hematochezia - Medications/Allergies Allergies/Adverse Reactions: Allergies Allergy/AdvReac Type Severity Reaction Status Date / Time chlorhexidine Allergy Rash Verified 09/05/16 10:47 morphine Allergy Nausea Verified 09/05/16 10:47 Medications: Current Medications Acetaminophen (Tylenol) 500 mg PO Q4H PRN PRN Reason: Pain Acyclovir (Zovirax) 200 mg PO BID [facility] Stop: 07/15/17 21:01 Last Admin: 07/10/17 09:20 Dose: 200 mg Amlodipine Besylate (Norvasc) 10 mg PO BID [facility] Bisacodyl (Dulcolax) 10 mg PO DAILYPRN PRN PRN Reason: CONSTIPATION Carvedilol (Coreg) 12.5 mg PO BID [facility] Last Admin: 07/10/17 09:20 Dose: 12.5 mg Clonidine HCl (Catapres) 0.1 mg PO Q6H PRN PRN Reason: Hypertension Last Admin: 07/07/17 09:16 Dose: 0.1 mg Dextrose/Water (Dextrose 50%) 25 gm SLOW IVP PRN PRN PRN Reason: Hypoglycemia Epoetin Nestor (Procrit) 10,000 units IVP TUTA [facility] Last Admin: 07/09/17 12:13 Dose: 10,000 units Furosemide (Lasix) 40 mg SLOW IVP 0600,1400 [facility] Last Admin: 07/10/17 06:12 Dose: 40 mg Gabapentin (Neurontin) 100 mg PO QAM [facility] Glucagon (Glucagon) 1 mg IM PRN PRN PRN Reason: Hypoglycemia Dextrose/Water (D5w) 1,000 mls @ 0 mls/hr IV .Q0M PRN; As Directed PRN Reason: Hypoglycemia Amiodarone HCl 450 mg/Miscellaneous Medication 1 each/ Dextrose/Water 259 mls @ 0 mls/hr IVPB INF [facility]; As Directed PRN Reason: Protocol Last Admin: 07/10/17 01:57 Dose: 259 mls Insulin Human Lispro (Humalog) 0 units SC .MILD SLIDING SCALE PRN PRN Reason: Mild Correctional Scale Labetalol HCl (Normodyne) 20 mg SLOW IVP Q4H PRN PRN Reason: Hypertension Last Admin: 07/06/17 18:36 Dose: 20 mg Ondansetron HCl (Zofran) 4 mg IVP Q6H PRN PRN Reason: Nausea/Vomiting Last Admin: 07/10/17 02:03 Dose: 4 mg Polyethylene Glycol (Miralax) 17 gm PO DAILY [facility] Last Admin: 07/10/17 09:21 Dose: Not Given Sodium Bicarbonate (Bicarbonate, Sodium) 325 mg PO TID [facility] Last Admin: 07/10/17 09:20 Dose: 325 mg Sodium Chloride (Flush - Normal Saline) 10 ml IVF PRN PRN PRN Reason: Saline Flush Last Admin: 07/06/17 15:06 Dose: 10 ml Tramadol HCl (Ultram) 100 mg PO Q4H PRN PRN Reason: Pain
--- NOTE | 2017-07-10 16:52 | PRG ---
DATE OF SERVICE: 07/10/2017 ELECTROPHYSIOLOGY FOLLOWUP NOTE SUBJECTIVE: Mrs. Mirza seems to be doing well, although has some confusion noted. OBJECTIVE DATA: VITAL SIGNS: Blood pressure is 153/70, heart rate 80, respirations 18, temperature 97.8 degrees Fahrenheit. GENERAL: Alert and oriented, obese woman, in no apparent distress. NECK: Supple. Jugular veins not distended. CHEST: Coarse without crackles. Right precordial pacemaker insertion site is well healed. ABDOMEN: Benign. Bowel sounds positive. EXTREMITIES: Lower extremities without edema, clubbing or cyanosis. SKIN: Without rash. DATABASE: EKG reveals resolution of atrial fibrillation, now back to sinus rhythm. LABORATORY DATA: White count is 7.3, hemoglobin 7.6, platelet count is 197. No new electrolytes today. ASSESSMENT AND PLAN: Mrs. Mirza is a 66-year-old woman with a history of end- stage renal disease and cardiomyopathy with systolic/diastolic heart failure, left ventricular ejection fraction 40%-45%, diabetes, and hypertension, who presented with marked fluid overload, was thought to be partially due to her renal insufficiency, but also due to heart failure. She developed progressive renal disease and started undergoing hemodialysis on a daily basis to reduce the fluid overload. While in hemodialysis, she developed atrial fibrillation, which persisted; eventually, we loaded her with amiodarone, has now converted back to sinus rhythm. PLAN: Regarding her atrial fibrillation, I would continue with suppressive antiarrhythmic regimen. She is not aware of her atrial fibrillation. She might have had these episodes also at home, which could have contributed to her heart failure as well. Her antiarrhythmic medication choices are limited, hence renal insufficiency and cardiomyopathy. The Amiodarone would be a reasonable choice, albeit we discussed the potential risks involved with that including pulmonary, liver, thyroid, and eye toxicity. After loading, we will progressively cut back on p.o. amiodarone taper. Anticoagulation also a difficult proposition with her. Hence, the severe anemia , we will discuss with Dr. Zavala and further workup regarding her anemia status is necessary prior to considering anticoagulants. Hence, she converted within 24 hours. I think it is reasonable to observe her off anticoagulants, but consider it on long-term if clinically feasible. Thank you again for allowing me to participate in the care of this patient. RAUL
--- NOTE | 2017-07-10 18:12 | ULT ---
ULTRASOUND SOFT TISSUE 07/10/17 HISTORY: Palpable areas within the anterior thigh bilaterally. COMPARISON: None. FINDINGS: The skin is abnormally thickened bilaterally. There is mild to moderate interstitial edema. There is infiltration of the subcutaneous fat. No definite mass can be seen per se, although the echogenic architecture is abnormal. IMPRESSION: Skin thickening with moderate interstitial edema as well as altered architecture. Findings can be se en with chronic cellulitis and congestive changes. MRI recommended with and without contrast. POS: [facility]
[2017-07-11 06:15] LABS: Anion Gap 9 mmol/L (10-20); BUN (Urea Nitrogen) 32 mg/dL (9.8-20.1); Calc. Creatinine Clearance 19 mL/min (70-130); Carbon Dioxide 28 mmol/L (23-31); Chloride 99 mmol/L (98-107); Estimated GFR-MDRD 11
[2017-07-11 07:25] LABS: Oxalate-24Hr Ur 37 mg/24 hr (4-31); Oxalates-Urine 13 mg/L (Undefined)
[2017-07-11] MEDS: Epoetin (NON-ESRD) 20,000 UNITS/ML ML IVP SCH (08:46)
[2017-07-11] MEDS ORDERED: Heparin 1,000 UNITS/ML VIAL ONE (11:11)
[2017-07-11] MEDS: Carvedilol 6.25 MG TAB PO SCH ×2 (11:57→21:19)
[2017-07-11] MEDS: Amlodipine 10 MG TAB PO SCH ×2 (11:57→21:18)
[2017-07-11] MEDS: Gabapentin 100 MG CAP PO SCH (11:57)
[2017-07-11] MEDS: Polyethylene Glycol 3350 17 GM Packet PO SCH (11:58)
--- NOTE | 2017-07-11 12:11 | PDOC.PN ---
- Subjective Encounter Start Date: 07/11/17 Encounter Start Time: 09:00 Pt seen for followup re: end stage renal disease on dialysis. Denies chest pain , shortness of breath, fevers or chills. No nausea or vomiting. - Objective Resuscitation Status: Resuscitation Status FULL:Full Resuscitation MAR Reviewed: Yes Vital Signs & Weight: Vital Signs (12 hours) Temp Pulse Resp BP BP Pulse Ox 07/11/17 11:57 81 160/71 H 07/11/17 11:48 98.7 F 81 17 160/71 H 94 L 07/11/17 04:55 98 07/11/17 04:00 98.6 F 79 16 141/63 H 98 07/11/17 01:30 95 07/11/17 00:15 95 Weight Admit Weight 235 lb 1.6 oz Weight 202 lb 14.4 oz I&O: 07/10/17 07/11/17 07/12/17 06:59 06:59 06:59 Intake Total 480 720 Output Total 1300 Balance -820 720 Result Diagrams: 07/07/17 06:02 07/11/17 05:30 Additional Labs: Accuchecks 07/11/17 07/10/17 07/10/17 06:15 20:16 17:00 POC Glucose 130 H 199 H 147 H 07/10/17 07/10/17 07/10/17 10:43 06:14 02:12 POC Glucose 139 H 152 H 155 H EKG Reviewed by me: Yes (Tele: NSR) Phys Exam - Physical Examination Constitutional: NAD HEENT: moist MMs, sclera anicteric Neck: supple, full ROM Respiratory: clear to auscultation bilateral Cardiovascular: RRR dialysis catheter Gastrointestinal: soft Musculoskeletal: pulses present Neurological: moves all 4 limbs Psychiatric: normal affect Skin: no rash Dx/Plan (1) ESRD (end stage renal disease) Code(s): N18.6 - END STAGE RENAL DISEASE Status: Acute (2) Acute exacerbation of CHF (congestive heart failure) Code(s): I50.9 - HEART FAILURE, UNSPECIFIED Status: Acute Qualifiers: Congestive heart failure type: combined Qualified Code(s): I50.43 - Acute on chronic combined systolic (congestive) and diastolic (congestive) heart failure (3) Herpes zoster Code(s): B02.9 - ZOSTER WITHOUT COMPLICATIONS Status: Acute (4) Diabetes type 2, uncontrolled Code(s): E11.65 - TYPE 2 DIABETES MELLITUS WITH HYPERGLYCEMIA Status: Chronic Qualifiers: Diabetes mellitus complication status: with kidney complications Diabetes mellitus complication detail: with nephropathy Diabetes mellitus fpc insulin use: with fpc use Qualified Code(s): E11.21 - Type 2 diabetes mellitus with diabetic nephropathy; E11.65 - Type 2 diabetes mellitus with hyperglycemia; E11.65 - Type 2 diabetes mellitus with hyperglycemia; E11.65 - Type 2 diabetes mellitus with hyperglycemia; E11.65 - Type 2 diabetes mellitus with hyperglycemia; Z79.4 - tank terminal gauger (current) use of insulin; Z79.4 - nursing home (current) use of insulin; Z79.4 - tank terminal gauger (current) use of insulin; Z79.4 - nursing home (current) use of insulin (5) HTN (hypertension) Code(s): I10 - ESSENTIAL (PRIMARY) HYPERTENSION Status: Chronic (6) Acute respiratory failure with hypoxia Code(s): J96.01 - ACUTE RESPIRATORY FAILURE WITH HYPOXIA Status: Resolved - Plan DVT proph w/heparin * . Dialysis per nephrology service. Pt continue to be in sinus rhythm. Fluid vs. fat on thigh ultrasound. Continue accuchecks and insulin sliding scale. Review of Systems - Review of Systems Constitutional: negative: Fever, Chills, Sweats, Weakness, Malaise Respiratory: negative: Cough, Dry, Shortness of Breath, Hemoptysis, SOB with Excertion, Pleuritic Pain, Sputum, Wheezing Cardiovascular: negative: Chest Pain, Palpitations, Orthopnea, Paroxysmal Noc. Dyspnea, Edema, Light Headedness - Medications/Allergies Allergies/Adverse Reactions: Allergies Allergy/AdvReac Type Severity Reaction Status Date / Time chlorhexidine Allergy Rash Verified 09/05/16 10:47 morphine Allergy Nausea Verified 09/05/16 10:47 Medications: Current Medications Acetaminophen (Tylenol) 500 mg PO Q4H PRN PRN Reason: Pain Acyclovir (Zovirax) 200 mg PO BID [facility] Stop: 07/15/17 21:01 Last Admin: 07/10/17 22:13 Dose: 200 mg Amiodarone HCl (Cordarone) 200 mg PO BID [facility] Stop: 07/24/17 23:59 Last Admin: 07/11/17 11:53 Dose: 200 mg Amlodipine Besylate (Norvasc) 10 mg PO BID [facility] Last Admin: 07/11/17 11:57 Dose: 10 mg Bisacodyl (Dulcolax) 10 mg PO DAILYPRN PRN PRN Reason: CONSTIPATION Carvedilol (Coreg) 12.5 mg PO BID [facility] Last Admin: 07/11/17 11:57 Dose: 12.5 mg Clonidine HCl (Catapres) 0.1 mg PO Q6H PRN PRN Reason: Hypertension Last Admin: 07/07/17 09:16 Dose: 0.1 mg Dextrose/Water (Dextrose 50%) 25 gm SLOW IVP PRN PRN PRN Reason: Hypoglycemia Epoetin Nestor (Procrit) 10,000 units IVP TUTHSA [facility] Last Admin: 07/11/17 08:46 Dose: 10,000 units Gabapentin (Neurontin) 100 mg PO QAM [facility] Last Admin: 07/11/17 11:57 Dose: 100 mg Glucagon (Glucagon) 1 mg IM PRN PRN PRN Reason: Hypoglycemia Dextrose/Water (D5w) 1,000 mls @ 0 mls/hr IV .Q0M PRN; As Directed PRN Reason: Hypoglycemia Insulin Human Lispro (Humalog) 0 units SC .MILD SLIDING SCALE PRN PRN Reason: Mild Correctional Scale Labetalol HCl (Normodyne) 20 mg SLOW IVP Q4H PRN PRN Reason: Hypertension Last Admin: 07/06/17 18:36 Dose: 20 mg Ondansetron HCl (Zofran) 4 mg IVP Q6H PRN PRN Reason: Nausea/Vomiting Last Admin: 07/10/17 02:03 Dose: 4 mg Polyethylene Glycol (Miralax) 17 gm PO DAILY [facility] Last Admin: 07/11/17 11:58 Dose: 17 gm Sodium Bicarbonate (Bicarbonate, Sodium) 325 mg PO TID [facility] Last Admin: 07/10/17 22:14 Dose: 325 mg Sodium Chloride (Flush - Normal Saline) 10 ml IVF PRN PRN PRN Reason: Saline Flush Last Admin: 07/11/17 11:58 Dose: 10 ml Tramadol HCl (Ultram) 100 mg PO Q4H PRN PRN Reason: Pain Last Admin: 07/11/17 00:14 Dose: 100 mg
[2017-07-11] MEDS: Sodium Bicarbonate Tab 325 MG TAB PO SCH ×3 (12:35→21:18)
[2017-07-11] MEDS: Acyclovir 200 mg Capsule PO SCH ×2 (12:35→21:18)
--- NOTE | 2017-07-11 16:47 | PRG ---
DATE OF SERVICE: 07/11/2017 SUBJECTIVE: Patient was seen and examined at bedside and overnight events noted. Patient denies an y shortness of breath or chest pain or palpitation. No history of nausea or vomiting or diarrhea or fever or chills or cramps. OBJECTIVE: GENERAL: This is an elderly obese white female in no apparent distress. VITAL SIGNS: Temperature 98.7, pulse 81, respiratory rate 18, blood pressure 160/71. HEENT: Atraumatic, normocephalic. Oral mucosa is moist. NECK: Supple. CARDIOVASCULAR: S1 and S2 heard, rate and rhythm regular. RESPIRATORY: Clear to auscultation. GASTROINTESTINAL: Abdomen is soft. MUSCULOSKELETAL: No tenderness, no edema. DERMATOLOGIC: No skin rash. NEUROLOGIC: Alert and awake and oriented X3. No focal neurologic deficits. Moving all the extremi ties. PSYCHIATRIC: Mood and affect normal. LABORATORY DATA: Potassium is 3.4, BUN is 32, and creatinine is 4.1. ASSESSMENT AND PLAN: 1. End-stage renal disease, started on hemodialysis during this admission, tolerating well. 2. Altered mentation, most likely medication and sleep deprivation, seems to be better. 3. Metabolic acidosis. Continue on dialysis. 4. Hypertension. Titrate medication, remove fluid with dialysis. 5. Anemia. 6. Secondary hyperparathyroidism. Overall, tolerating dialysis. We will continue on dialysis as faustina davies.
[2017-07-11] MEDS ORDERED: Melatonin 3 MG TAB PO PRN (17:54)
[2017-07-12] MEDS: Carvedilol 6.25 MG TAB PO SCH ×2 (10:02→20:41)
[2017-07-12] MEDS: Polyethylene Glycol 3350 17 GM Packet PO SCH (10:02)
[2017-07-12] MEDS: Gabapentin 100 MG CAP PO SCH (10:03)
[2017-07-12] MEDS: Acyclovir 200 mg Capsule PO SCH ×2 (10:03→20:42)
[2017-07-12] MEDS: Sodium Bicarbonate Tab 325 MG TAB PO SCH ×3 (10:03→20:46)
[2017-07-12] MEDS: Amlodipine 10 MG TAB PO SCH ×2 (10:03→20:41)
--- NOTE | 2017-07-12 11:52 | PDOC.PN ---
- Subjective Encounter Start Date: 07/12/17 Encounter Start Time: 11:51 Pt seen for followup re: physical deconditioning. Denies chest pain, shortness of breath. Dry mouth+. - Objective Resuscitation Status: Resuscitation Status FULL:Full Resuscitation MAR Reviewed: Yes Vital Signs & Weight: Vital Signs (12 hours) Temp Pulse Resp BP Pulse Ox 07/12/17 10:03 78 07/12/17 08:18 98.6 F 78 18 122/57 L 92 L 07/12/17 04:27 94 L 07/12/17 04:00 98.0 F 78 16 130/60 94 L 07/12/17 00:25 93 L 07/12/17 00:00 98.6 F 76 18 131/62 93 L Weight Admit Weight 235 lb 1.6 oz Weight 199 lb 11.2 oz I&O: 07/11/17 07/12/17 07/13/17 06:59 06:59 06:59 Intake Total 720 1320 Balance 720 1320 Result Diagrams: 07/07/17 06:02 07/11/17 05:30 Additional Labs: Accuchecks 07/11/17 07/11/17 20:43 16:52 POC Glucose 126 H 109 EKG Reviewed by me: Yes (Tele: NSR) Phys Exam - Physical Examination Constitutional: NAD Dry mucosae Neck: supple Respiratory: clear to auscultation bilateral Cardiovascular: RRR Gastrointestinal: soft Musculoskeletal: pulses present, edema present Neurological: moves all 4 limbs Psychiatric: normal affect Dx/Plan (1) Physical deconditioning Code(s): R53.81 - OTHER MALAISE Status: Acute (2) ESRD (end stage renal disease) Code(s): N18.6 - END STAGE RENAL DISEASE Status: Acute (3) Acute exacerbation of CHF (congestive heart failure) Code(s): I50.9 - HEART FAILURE, UNSPECIFIED Status: Acute Qualifiers: Congestive heart failure type: combined Qualified Code(s): I50.43 - Acute on chronic combined systolic (congestive) and diastolic (congestive) heart failure (4) Herpes zoster Code(s): B02.9 - ZOSTER WITHOUT COMPLICATIONS Status: Acute (5) Diabetes type 2, uncontrolled Code(s): E11.65 - TYPE 2 DIABETES MELLITUS WITH HYPERGLYCEMIA Status: Chronic Qualifiers: Diabetes mellitus complication status: with kidney complications Diabetes mellitus complication detail: with nephropathy Diabetes mellitus alf insulin use: with termite exterminator helper use Qualified Code(s): E11.21 - Type 2 diabetes mellitus with diabetic nephropathy; E11.65 - Type 2 diabetes mellitus with hyperglycemia; E11.65 - Type 2 diabetes mellitus with hyperglycemia; E11.65 - Type 2 diabetes mellitus with hyperglycemia; E11.65 - Type 2 diabetes mellitus with hyperglycemia; Z79.4 - termite exterminator helper (current) use of insulin; Z79.4 - termite exterminator helper (current) use of insulin; Z79.4 - termite exterminator helper (current) use of insulin; Z79.4 - termite exterminator helper (current) use of insulin (6) HTN (hypertension) Code(s): I10 - ESSENTIAL (PRIMARY) HYPERTENSION Status: Chronic (7) Acute respiratory failure with hypoxia Code(s): J96.01 - ACUTE RESPIRATORY FAILURE WITH HYPOXIA Status: Resolved - Plan PT/OT, out of bed/ambulate, DVT proph w/heparin * . Pt will likely need SNU. Dialysis per nephrology sservice. Currently in sinus rhythm. Review of Systems - Review of Systems Constitutional: negative: Fever, Chills, Sweats, Weakness, Malaise Respiratory: negative: Cough, Dry, Shortness of Breath, Hemoptysis, SOB with Excertion, Pleuritic Pain, Sputum, Wheezing Cardiovascular: negative: Chest Pain, Palpitations, Orthopnea, Paroxysmal Noc. Dyspnea, Edema, Light Headedness - Medications/Allergies Allergies/Adverse Reactions: Allergies Allergy/AdvReac Type Severity Reaction Status Date / Time chlorhexidine Allergy Rash Verified 09/05/16 10:47 morphine Allergy Nausea Verified 09/05/16 10:47 Medications: Current Medications Acetaminophen (Tylenol) 500 mg PO Q4H PRN PRN Reason: Pain Acyclovir (Zovirax) 200 mg PO BID [facility] Stop: 07/15/17 21:01 Last Admin: 07/12/17 10:03 Dose: 200 mg Amiodarone HCl (Cordarone) 200 mg PO BID [facility] Stop: 07/24/17 23:59 Last Admin: 07/12/17 10:02 Dose: 200 mg Amlodipine Besylate (Norvasc) 10 mg PO BID [facility] Last Admin: 07/12/17 10:03 Dose: 10 mg Bisacodyl (Dulcolax) 10 mg PO DAILYPRN PRN PRN Reason: CONSTIPATION Carvedilol (Coreg) 12.5 mg PO BID [facility] Last Admin: 07/12/17 10:02 Dose: 12.5 mg Clonidine HCl (Catapres) 0.1 mg PO Q6H PRN PRN Reason: Hypertension Last Admin: 07/07/17 09:16 Dose: 0.1 mg Dextrose/Water (Dextrose 50%) 25 gm SLOW IVP PRN PRN PRN Reason: Hypoglycemia Epoetin Nestor (Procrit) 10,000 units IVP TUTHSA [facility] Last Admin: 07/11/17 08:46 Dose: 10,000 units Gabapentin (Neurontin) 100 mg PO QAM [facility] Last Admin: 07/12/17 10:03 Dose: 100 mg Glucagon (Glucagon) 1 mg IM PRN PRN PRN Reason: Hypoglycemia Dextrose/Water (D5w) 1,000 mls @ 0 mls/hr IV .Q0M PRN; As Directed PRN Reason: Hypoglycemia Insulin Human Lispro (Humalog) 0 units SC .MILD SLIDING SCALE PRN PRN Reason: Mild Correctional Scale Labetalol HCl (Normodyne) 20 mg SLOW IVP Q4H PRN PRN Reason: Hypertension Last Admin: 07/06/17 18:36 Dose: 20 mg Melatonin (Melatonin) 3 mg PO HS PRN PRN Reason: Insomnia Ondansetron HCl (Zofran) 4 mg IVP Q6H PRN PRN Reason: Nausea/Vomiting Last Admin: 07/10/17 02:03 Dose: 4 mg Polyethylene Glycol (Miralax) 17 gm PO DAILY [facility] Last Admin: 07/12/17 10:02 Dose: 17 gm Sodium Bicarbonate (Bicarbonate, Sodium) 325 mg PO TID [facility] Last Admin: 07/12/17 10:03 Dose: 325 mg Sodium Chloride (Flush - Normal Saline) 10 ml IVF PRN PRN PRN Reason: Saline Flush Last Admin: 07/11/17 11:58 Dose: 10 ml Tramadol HCl (Ultram) 100 mg PO Q4H PRN PRN Reason: Pain Last Admin: 07/11/17 00:14 Dose: 100 mg
--- NOTE | 2017-07-12 13:56 | PRG ---
DATE OF SERVICE: 07/12/2017 SUBJECTIVE: Patient was seen and examined at bedside and overnight events noted. Patient denies an y shortness of breath or chest pain or palpitation. No history of nausea or vomiting or diarrhea or fever or chills or cramps. OBJECTIVE: GENERAL: This is a morbidly obese female in no apparent distress. VITAL SIGNS: Temperature 99.3, pulse 74, respiratory rate 19, blood pressure 124/58. HEENT: Atraumatic, normocephalic. Oral mucosa is moist. NECK: Supple. CARDIOVASCULAR: S1 and S2 heard, rate and rhythm regular. RESPIRATORY: Clear to auscultation. GASTROINTESTINAL: Abdomen is soft. MUSCULOSKELETAL: No tenderness, no edema. DERMATOLOGIC: No skin rash. NEUROLOGIC: Alert and awake and oriented X3. No focal neurologic deficits. Moving all the extremi ties. PSYCHIATRIC: Mood and affect normal. LABORATORY DATA: No labs done today. ASSESSMENT AND PLAN: 1. End-stage renal disease. We will repeat labs in the morning. 2. Altered mentation, seems better. 3. Metabolic acidosis, better with dialysis. 4. Hypertension. 5. Anemia. 6. Secondary hyperparathyroidism. Continue on dialysis as tolerated. 7. Follow with case management for outpatient placement.
[2017-07-12 16:11] LABS: #Eosinphils 0.3 thou/uL (0.0-0.7); #Monocytes 0.7 thou/uL (0.11-0.59); #Neutrophils 5.8 thou/uL (1.40-6.50); %Basophils 0.3 % (0.0-1.0); %Eosinophils 3.5 % (0.0-10.0); %Lymphocytes 13.1 % (21.0-51.0); %Monocytes 9.1 % (0.0-10.0); Hematocrit 21.3 % (36.0-47.0); Red Blood Cell (RBC) Count 2.13 mill/uL (4.20-5.40); White Blood Cell (WBC) Count 7.8 thou/uL (4.8-10.8)
--- OUTSIDE RECORDS SUMMARY | 2017-07-12 21:06 | XMS | Clinical Summary ---
:1950 Author Organization [facility] Address [address] [place] [address] Phone Care Team Providers Name Role Phone Kaleb Elaine Primary Care Provider tel Allergies No Known Allergies Current Medications Prescription Sig. Disp. Refills Start Date End Date Status gabapentin (NEURONTIN) Take 100 mg by mouth Active 100 MG capsule 3 (three) times a day. fenofibrate (TRICOR) 145 Take 145 mg by mouth Active MG tablet daily. calcium citrate-vitamin Take 2 tablets by Active D3 (CITRACAL+D) 315-200 mouth daily. mg-unit per tablet metoprolol tartrate Take 1 tablet (50 mg 0 07/22/2016 Active (LOPRESSOR) 50 MG tablet total) by mouth daily. amLODIPine (NORVASC) 5 Take 1 tablet (5 mg 0 07/22/2016 Active MG tablet total) by mouth daily. polyethylene glycol Take 17 g by mouth 0 07/22/2016 Active (MIRALAX) 17 gram packet daily. insulin GLARGINE Inject 35 Units 12 07/22/2016 Active (LANTUS) 100 unit/mL under the skin daily injection before breakfast. insulin lispro (HumaLOG) Inject 0-5 Units 07/22/2016 Active 100 unit/mL injection under the skin 3 (three) times a day with meals. insulin lispro (HumaLOG) Inject 8 Units under 12 07/22/2016 Active 100 unit/mL injection the skin daily before lunch. insulin lispro (HumaLOG) Inject 8 Units under 12 07/22/2016 Active 100 unit/mL injection the skin daily with breakfast. insulin lispro (HumaLOG) Inject 8 Units under 07/22/2016 Active 100 unit/mL injection the skin daily before dinner. bacitracin ointment Apply topically 2 07/22/2016 Active (two) times a day. Active Problems Problem Noted Date Anemia, unspecified 07/16/2016 Spondylosis 07/14/2016 Social History Tobacco Use Types Packs/Day Years Used Date Never Smoker Tobacco Cessation:Counseling Given: No Alcohol Use Drinks/Week oz/Week Comments No Sex Assigned at Date Recorded Not on file Last Filed Vital Signs Vital Sign Reading Time Taken Blood Pressure 136/72 07/22/2016 11:36 AM CDT Pulse 84 07/22/2016 11:36 AM CDT Temperature 36.3 C (97.3 F) 07/22/2016 7:53 AM CDT Respiratory Rate 17 07/22/2016 11:36 AM CDT Oxygen Saturation 98% 07/22/2016 11:36 AM CDT Inhaled Oxygen Concentration - - Weight 102 kg (225 lb) 07/15/2016 11:18 AM CDT Height 162.6 cm (5' 4") 07/14/2016 4:17 PM CDT Body Mass Index 38.62 07/15/2016 11:18 AM CDT Plan of Treatment Health Maintenance Due Date Last Done Comments FOOT EXAM 12/02/1961 OPHTHALMOLOGY EXAM 12/02/1961 URINE MICROALBUMIN 12/02/1961 COLONOSCOPY 12/02/2001 MAMMOGRAM 12/02/2001 ZOSTER VACCINE 2011 PNEUMOCOCCAL POLYSACCHARIDE VACCINE AGE 65 AND OVER 12/02/2016 PNEUMOCOCCAL-13 12/02/2016 INFLUENZA VACCINE 04/21/2017 Implants Implanted Type Area Communications Station Manager Device Expiration Model / Identifier Date Serial / Lot Matrix Dural Duragen Plus 1x3in Regnrtn - [id number] Neurosurgical N/A: [employer]TE[employer]RA 02/18/2019 [id number] / Implanted:07/16/2016 (Quantity not on file) Implants N/A LIFESCIENCE / NEURO [id number] [facility] W/ F2 8ml Surgiflo - [id number] Surgical N/A: ETHICON US-EH 05/21/2017 [id number] / Implanted:07/16/2016 (Quantity not on file) Implants; N/A / Expanders; [id number] Extenders; Surgical Wires Results Not on filefrom Last 3 Months Insurance Payer Benefit Plan / Group Subscriber ID Type Phone Address BCBS BCBS CHOICE PPO/F[employer]ERAL EMPL PPO [id number] PPO BCBS BCBS CHOICE PPO/[employer] PPO [id number] PPO Home: [place] [id number] [facility] [phone] [place] [phone]
[2017-07-13 05:25] VITALS: BMI 34.7
[2017-07-13 06:34] LABS: Anion Gap 6 mmol/L (10-20); BUN (Urea Nitrogen) 30 mg/dL (9.8-20.1); Calc. Creatinine Clearance 21 mL/min (70-130); Calcium 7.9 mg/dL (7.8-10.44); Carbon Dioxide 33 mmol/L (23-31); Chloride 98 mmol/L (98-107); Estimated GFR-MDRD 11
[2017-07-13] MEDS: Amlodipine 10 MG TAB PO SCH (10:27)
[2017-07-13] MEDS: Polyethylene Glycol 3350 17 GM Packet PO SCH (10:27)
[2017-07-13] MEDS: Sodium Bicarbonate Tab 325 MG TAB PO SCH (10:28)
[2017-07-13] MEDS: Gabapentin 100 MG CAP PO SCH (10:28)
[2017-07-13] MEDS: Carvedilol 6.25 MG TAB PO SCH (10:28)
[2017-07-13] MEDS: Acyclovir 200 mg Capsule PO SCH (10:28)
--- NOTE | 2017-07-13 11:00 | PRG ---
DATE OF SERVICE: 07/13/2017 SUBJECTIVE: This is a 66-year-old female being seen for end-stage renal disease. Patient denies an y nausea, vomiting or chest pain. PHYSICAL EXAMINATION: GENERAL: Patient is awake, alert. VITAL SIGNS: Afebrile, pulse 77, breathing at 16, blood pressure 118/58. GENERAL APPEARANCE AND MENTAL STATUS: Fair. HEAD/NECK: Normocephalic. Atraumatic. EYES: EOMI. No deformity. EARS: Clear. No ulcers. NOSE: Intact. No lesions. MOUTH: Clear. No discharge. THROAT: Clear. No exudate. LUNGS: Clear. No crackles. CARDIAC: S1, S2. No rub. ABDOMEN: Benign. BS+. GENITALIA/RECTUM: Nieves absent. BACK/EXTREMITIES: Edema 0+ Ulcer- NEUROLOGICAL: Alert and motor intact. SKIN: Rash- Bruise- LYMPHATICS: Edema- Ulcer- LABORATORY DATA: Show hemoglobin was 6.9, potassium was 3.7. ASSESSMENT AND RECOMMENDATIONS: 1. Stage 6 chronic kidney disease. We will plan dialysis. 2. Anemia, would recommend transfusion. 3. Hypertension, stable. 4. Medications based on glomerular filtration rate are appropriate.
[2017-07-13 11:32] LABS: Hematocrit 21.9 % (36.0-47.0)
[2017-07-13 12:57] VITALS: TEMP 97.5
--- NOTE | 2017-07-13 17:53 | PRG ---
DATE OF SERVICE: 07/13/2017 ELECTROPHYSIOLOGY FOLLOWUP NOTE REFERRING PHYSICIAN: Dr. Zavala, also Dr. Mathis. SUBJECTIVE: Ms. Mirza seems to be doing well. She had no recurrent syncopal spells over the weeken d. She is being [facility]. OBJECTIVE DATA: VITAL SIGNS: Blood pressure is 116/54, heart rate is 69, respiratory rate is 18, and temperature 97 .5 degrees Fahrenheit. GENERAL: She is alert and oriented woman, in no apparent distress. NECK: Supple. Jugular veins not distended. CHEST: Coarse without crackles. CARDIOVASCULAR: Heart sounds are regular rate and rhythm. No murmur or gallop. ABDOMEN: Benign. Bowel sounds positive. EXTREMITIES: Lower extremities, no edema, clubbing, or cyanosis. DATABASE: EKGs revealed sinus rhythm. No significant ST-T changes. Telemetry strips likewise was stopped. The QT is measured to be 400 milliseconds. LABORATORY DATA: The hemoglobin today is 7. Sodium 133, potassium 3.6, BUN is 30, creatinine 4.06, AST is 23 on the . ASSESSMENT AND PLAN: Ms. Mirza is a pleasant 66-year-old woman with acute on chronic renal disease, progressed to hemodialysis this admission, fluid overload, likely related to that. She seems to roman ve improved. She also developed atrial fibrillation episode while on dialysis, which persisted, req uiring IV amiodarone for termination. Now, she is back in sinus rhythm and maintaining it without i ssues. She is now back on p.o. amiodarone. I discussed the case with the patient as well as Dr. Zavala, her hospitalist. It seems it is reasona ble to continue as is with amiodarone suppression for atrial fibrillation. I would like to taper it down to maintenance 200 mg dose in 2 weeks. More of an issue regarding oral anticoagulation, recur rences are possible, but hopefully we will be surprised by atrial fibrillation and anemia, ora l anticoagulation is a difficult proposition. For now, we would likely monitor her off anticoagulan ts on a clear indication of [id number] anemia is found. If recurrent atrial fibrillation seen though and again her anemia is not related to bleeding, but due to her chronic renal disease, i t might be reasonable to start anticoagulants, possibly Coumadin in view of end-stage renal disease. We discussed the long-term use of amiodarone, which carries a potential risk of pulmonary, thyroid, liver, and eye toxicity, she understands. I will be happy to see her back in a couple of weeks in my office.
--- NOTE | 2017-07-13 19:39 | DIS ---
PRIMARY CARE PHYSICIAN: Myranda Elaine M.D. DATE OF ADMISSION: 07/04/2017 DATE OF DISCHARGE: 07/13/2017 DISCHARGE DIAGNOSES: 1. End-stage renal disease, initiated on hemodialysis. 2. Atrial fibrillation, new onset, spontaneously converted to normal sinus rhythm. 3. Physical deconditioning. 4. Congestive heart failure, treated with diuretics. DISCHARGE MEDICATIONS: Tylenol Extra Strength 500 mg every 4 hours as needed, Zovirax 200 mg 2 time s a day for 4 more days, amiodarone 200 mg 2 times a day until 07/26/2017, followed by one time adela edge from 07/27/2017, Coreg 12.5 mg 2 times a day, gabapentin 100 mg daily, melatonin 3 mg at bedtime a s needed, MiraLax 17 grams daily, amlodipine 10 mg 2 times a day, tramadol 100 mg every 4 hours as n eeded. CONDITION OF PATIENT AT THE TIME OF DISCHARGE: Stable. I assessed Ms. Mirza on the day of discharg e. She denies any chest pain or shortness of breath. She reports feeling weak. Vital signs are st able. S1 and S2 are heard, regular. Lungs are clear to auscultation bilaterally. HOSPITAL COURSE: Ms. Mirza is a pleasant 66-year-old lady who was admitted to [facility] for acute on chronic renal failure. She was also found to be in exacerbation of conges tive heart failure. She received diuretics. She also had herpes zoster infection, for which she wa s started on acyclovir. Her creatinine did not improve significantly. She was started on hemodialysis after having dialysis catheter placed on 07/08/2017. She also developed new onset atrial fibrillation. She was seen by [facility] and was started on amiodarone. However, she spontaneously converted to normal sinus rhythm . She is receiving loading dose of amiodarone followed by decreased dose. She became physically deconditioned. She was evaluated for inpatient rehabilitation and is being di scharged to [facility] for inpatient rehabilitation. On 07/12/2017, she had a white count of 7800, hemoglobin 6.9, and platelet count 224,000. On 2016, she has sodium 133, potassium 3.7, blood urea nitrogen 30 and creatinine 4.06. During this hospitalization, she had a BNP level of 2853.4. She had a normal TSH of 3.0224. Her ca lcium level was normal, but PTH was elevated at 387.3. Many thanks for allowing me to participate in your patient's care. Please feel free to contact me w ith any questions or concerns. DISCHARGE DESTINATION: [facility]. TOTAL AMOUNT OF TIME SPENT COORDINATING THIS DISCHARGE: 38 minutes.
[2017-07-13 20:38] VITALS: BP 118/58
== END 2017-07-13 20:57 | DRG 264 ==
LOC: ERS 18:56 → IMCU/EMU 21:24 → 2NO 07-05 15:28
PROVIDERS: ADMIT Internal Medicine; ATTEND Internal Medicine
PROC: 02HV33Z Insertion of Infusion Device into Superior Vena Cava, Percutaneous Approach (ICD-10-PCS; principal; 2017-07-08)
PROC: 031B0ZF Bypass Right Radial Artery to Lower Arm Vein, Open Approach (ICD-10-PCS; 2017-07-08)
PROC: B5181ZA Fluoroscopy of Superior Vena Cava using Low Osmolar Contrast, Guidance (ICD-10-PCS; 2017-07-08)
PROC: 5A1D70Z Performance of Urinary Filtration, Intermittent, Less than 6 Hours Per Day (ICD-10-PCS; 2017-07-09)
DX: I13.2 Hypertensive heart and chronic kidney disease with heart failure and with stage 5 chronic kidney disease, or end stage renal disease (principal); J96.01 Acute respiratory failure with hypoxia; N17.9 Acute kidney failure, unspecified; E87.2 Acidosis; B02.9 Zoster without complications; E11.21 Type 2 diabetes mellitus with diabetic nephropathy; N18.6 End stage renal disease; I50.43 Acute on chronic combined systolic (congestive) and diastolic (congestive) heart failure; I82.612 Acute embolism and thrombosis of superficial veins of left upper extremity; N25.81 Secondary hyperparathyroidism of renal origin; E11.22 Type 2 diabetes mellitus with diabetic chronic kidney disease; E88.81 Metabolic syndrome and other insulin resistance; E87.5 Hyperkalemia; I10 Essential (primary) hypertension; Z96.643 Presence of artificial hip joint, bilateral; Z79.4 Long term (current) use of insulin; Z88.8 Allergy status to other drugs, medicaments and biological substances; E78.5 Hyperlipidemia, unspecified; D64.9 Anemia, unspecified; Z68.34 Body mass index [BMI] 34.0-34.9, adult; M10.9 Gout, unspecified; E66.01 Morbid (severe) obesity due to excess calories; I48.91 Unspecified atrial fibrillation; E11.65 Type 2 diabetes mellitus with hyperglycemia
CPT/HCPCS: 36415; 36416; 71010; 76770; 76999; 78452; 78582; 80048; 80053; 80076; 82340; 82436; 82507; 82550; 82553; 82570; 83605; 83690; 83735; 83880; 83945; 83970; 84133; 84156; 84165; 84300; 84443; 84484; 85014; 85018; 85025; 85379; 86580; 86704; 86706; 86803; 87340; 90471; 90682; 90935; 93005; 93017; 93306; 93798; 93970; 94760; 96372; 96374; 96375; A4216; A9500; A9540; A9558; C1752; C1769; G0008; G0257; G0365; G8978-GP-CM; G8979-GP-CJ; J0153; J0282; J0885; J1642; J1644; J1650; J1815; J1940; J1956; J2001; J2405; J2550; J2704; J2720; J2765; J3010; J3490; J7050; J7070; Q2036; Q4081; S0020

== ENCOUNTER 2017-08-19 09:29 | Outpatient (CLI) | payer MEDICARE ==
[2017-08-19] MEDS ORDERED: Lidocaine 2% Jelly 5 ML TUBE ONE (17:47)
[2017-08-19] MEDS ORDERED: Sodium Chloride 0.9% 15 ML NEB ONE (17:47)
--- NOTE | 2017-08-19 21:12 | HP ---
DATE OF SERVICE: 08/19/2017 HISTORY OF PRESENT ILLNESS: Ms. She Mirza is a very pleasant 66-year-old who presents to the [facility] for evaluation of multiple ulcerations of the right and left upper thighs. The patient stat es that the wounds developed approximately 5 weeks ago. She states that for the wound, she is presen tly receiving dressing changes of Bactroban at [facility]. The patient states that she develop ed swelling of her lower extremities, followed by the appearance of "knots" and eventually the develo pment of ulcerations of the right and left upper thighs. The patient states that the swelling of her lower extremities improved with the initiation of dialysis. The patient was referred to the Wound C enter by Dr. Kenyon Hitchcock. PAST MEDICAL HISTORY: 1. Hypertension. 2. Osteoarthritis. 3. Diabetes mellitus. 4. Nephrolithiasis. 5. Anemia. 6. End-stage renal disease. 7. History of atrial fibrillation. PAST SURGICAL HISTORY: 1. Hysterectomy. 2. Right hip replacement. 3. Left hip replacement. 4. Bilateral cataract surgery. 5. Lumbar laminectomy. 6. Dialysis access procedures. MEDICATIONS: 1. Amiodarone. 2. Coreg. 3. Cymbalta. 4. Gabapentin. 5. Melatonin. 6. Vitamin C. 7. Trazodone. 8. Insulin. 9. Mckinnon. 10. Zofran. 11. Nizoral shampoo. ALLERGIES: MORPHINE. SOCIAL HISTORY: Negative for current or previous tobacco or EtOH use. FAMILY HISTORY: Significant for diabetes mellitus. The patient states that her mother was diagnosed with diabetes mellitus. Family history is negative for coronary artery disease. PHYSICAL EXAMINATION: VITAL SIGNS: Temperature 97.6, pulse 73, respirations 18, blood pressure 170/62. Accu-Chek 115. GENERAL: A 66-year-old female lying on table in examination room in no acute distress. HEENT: Normocephalic, atraumatic. NECK: No nuchal rigidity. CHEST: Clear to auscultation. CARDIOVASCULAR: Regular rate and rhythm. ABDOMEN: Soft. EXTREMITIES: Multiple ulcerations of the right and left upper thighs are present. Each ulceration i s associated with eschar, which completely covers the wound bed. No purulent drainage is associated with any of the wounds. No cellulitis of the right or left lower extremity is appreciated. No macer ation of the skin of the periwound of any of the wounds is noted. ASSESSMENT AND PLAN: 1. Multiple ulcerations of right and left upper thighs as described above. Dressing changes of Medi honey will be initiated today. These dressing changes are to be performed every other day after giuliano nsing and irrigation at [facility]. No antibiotics will be prescribed today based upon the ish earance of the wounds. I will see Ms. Mirza again in two weeks. If the ulcerations fail to improve with the preceding dressing changes, consideration will be given to biopsy of one of the ulcerations. The patient understands and is in agreement with the preceding treatment plan. 2. Hypertension. 3. Osteoarthritis. 4. Diabetes mellitus. The patient's Accu-Chek in clinic today is 115. The patient has been told th at for optimal wound healing, her blood glucoses should remain below 150. 5. Nephrolithiasis. 6. Anemia. 7. End-stage renal disease. 8. History of atrial fibrillation.
== END 2017-08-19 09:30 | disposition home or self-care (01) ==
LOC: WCC 09:29
PROVIDERS: ATTEND Family Medicine
DX: E11.622 Type 2 diabetes mellitus with other skin ulcer (principal); L97.129 Non-pressure chronic ulcer of left thigh with unspecified severity; L97.119 Non-pressure chronic ulcer of right thigh with unspecified severity; E11.22 Type 2 diabetes mellitus with diabetic chronic kidney disease; I12.0 Hypertensive chronic kidney disease with stage 5 chronic kidney disease or end stage renal disease; N18.6 End stage renal disease; D63.1 Anemia in chronic kidney disease; N20.0 Calculus of kidney; Z99.2 Dependence on renal dialysis; Z86.79 Personal history of other diseases of the circulatory system
CPT/HCPCS: 97139; 97602; G0463; 99204; A4218

== ENCOUNTER 2017-09-02 08:07 | Outpatient (CLI) | payer MEDICARE ==
--- NOTE | 2017-09-02 09:35 | PRG ---
DATE OF SERVICE: 09/02/2017 HISTORY: Ms. She Mirza is a very pleasant 66-year-old who presents to the Wound Center for evalua tion of multiple ulcerations of the right and left upper thighs. The patient stated at the time of h er initial presentation to the Wound Center that the wounds had developed 5 weeks previously. When s he presented to the Wound Center, she had been receiving dressing changes of Bactroban at [facility]. The patient stated that she had developed swelling of her lower extremities, followed by the appearance of "knots" and eventually the development of ulcerations of the right and left upper thigh s. The patient stated that the swelling of her lower extremities improved with the initiation of christine lysis. The patient was referred to the Wound Center by Dr. Kenyon Hitchcock. After being seen in the und Center, dressing changes of Medihoney were initiated. The patient has been receiving these dress ing changes every other day after cleansing and irrigation at [facility]. PHYSICAL EXAMINATION: VITAL SIGNS: Temperature 97.9, pulse 75, respirations 18, blood pressure 183/83. Accu-Chek 120. EXTREMITIES: Multiple ulcerations of the right and left upper thighs are still present. The ulcerat ions, however, have markedly improved in their appearance. The dimensions of each ulceration have de creased. No purulent drainage is associated with any of the wounds. No cellulitis of the right or l eft lower extremity is appreciated. No maceration of the skin of the periwound of any of the wounds is noted. ASSESSMENT AND PLAN: 1. Multiple ulcerations of right and left upper thighs as described above. Dressing changes of Medi honey will be continued every other day after cleansing and irrigation at [facility]. I will s ee Ms. Mirza again in four weeks. 2. Hypertension. 3. Osteoarthritis. 4. Diabetes mellitus. The patient's Accu-Chek in clinic today is 120. The patient has been reminde d that for optimal wound healing, her blood glucoses should remain below 150. 5. Nephrolithiasis. 6. Anemia. 7. End-stage renal disease. 8. History of atrial fibrillation.
[2017-09-02] MEDS ORDERED: Sodium Chloride 0.9% 15 ML NEB ONE (10:57)
== END 2017-09-02 08:08 | disposition home or self-care (01) ==
LOC: WCC 08:07
PROVIDERS: ATTEND Family Medicine
DX: E11.622 Type 2 diabetes mellitus with other skin ulcer (principal); E11.22 Type 2 diabetes mellitus with diabetic chronic kidney disease; L97.129 Non-pressure chronic ulcer of left thigh with unspecified severity; L97.119 Non-pressure chronic ulcer of right thigh with unspecified severity; I12.0 Hypertensive chronic kidney disease with stage 5 chronic kidney disease or end stage renal disease; N18.6 End stage renal disease; D63.1 Anemia in chronic kidney disease; N20.0 Calculus of kidney; M19.90 Unspecified osteoarthritis, unspecified site
CPT/HCPCS: 97602; A4218

== ENCOUNTER 2017-10-15 10:03 | Outpatient (CLI) | payer MEDICARE ==
--- NOTE | 2017-10-15 12:17 | PRG ---
DATE OF SERVICE: 10/15/2017 HISTORY: Ms. She Mirza is a very pleasant 66-year-old who presents to the Wound Center for evalua tion of multiple ulcerations of the right and left upper thighs. The patient stated at the time of h er initial presentation to the Wound Center that the wound had developed 5 weeks previously. When amado brownlee presented to the Wound Center, she had been receiving dressing changes of Bactroban at [facility]. The patient stated that she had developed swelling of her lower extremities, followed by the a ppearance of "knots" and eventually the development of ulcerations of the right and left upper thighs . The patient stated that the swelling of her lower extremities improved with the initiation of dial ysis. The patient was referred to the Wound Center by Dr. Kenyon Hitchcock. After being seen in the [facility], dressing changes of Medihoney were initiated. The patient has been receiving these dressi ng changes every other day after cleansing and irrigation at [facility]. PHYSICAL EXAMINATION: VITAL SIGNS: Temperature 97.7, pulse 97, respirations 18, blood pressure 177/79. Accu-Chek 158. EXTREMITIES: Multiple ulcerations of the right and left upper thighs are still present. The ulcerat ions again have markedly improved in their appearance and ulceration over the left lateral thigh is p resent, which measures approximately 6.0 x 3.0 cm. Necrotic and nonviable tissue present within the wound margins was debrided with an excisional full-thickness debridement with the use of scissors. G ranulation tissue is present within the wound margins. No purulent drainage is associated with the w ound. No erythema of the skin surrounding the wound is present. No maceration of the skin of the pe riwound is noted. The remaining ulcerations appear to be healing without complications or any signs of infection. ASSESSMENT AND PLAN: 1. Multiple ulcerations of right and left upper thighs as described above. Dressing changes of Medi honey will be continued every other day after cleansing and irrigation at [facility]. I will s ee Ms. Mirza again in four weeks. 2. Hypertension. 3. Osteoarthritis. 4. Diabetes mellitus. The patient's Accu-Chek in clinic today is 158. The patient has been reminde d that for optimal wound healing, her blood glucoses should remain below 150. 5. Nephrolithiasis. 6. Anemia. 7. End-stage renal disease. 8. History of atrial fibrillation.
[2017-10-16] MEDS ORDERED: Lidocaine 2% Jelly 5 ML TUBE ONE (16:00)
[2017-10-16] MEDS ORDERED: Sodium Chloride 0.9% 15 ML NEB ONE (16:00)
== END 2017-10-15 10:04 | disposition home or self-care (01) ==
LOC: WCC 10:03
PROVIDERS: ATTEND Family Medicine
DX: E11.622 Type 2 diabetes mellitus with other skin ulcer (principal); L97.129 Non-pressure chronic ulcer of left thigh with unspecified severity; L97.119 Non-pressure chronic ulcer of right thigh with unspecified severity; E11.22 Type 2 diabetes mellitus with diabetic chronic kidney disease; I12.0 Hypertensive chronic kidney disease with stage 5 chronic kidney disease or end stage renal disease; N18.6 End stage renal disease; D63.1 Anemia in chronic kidney disease; M19.90 Unspecified osteoarthritis, unspecified site; N20.0 Calculus of kidney; Z86.79 Personal history of other diseases of the circulatory system
CPT/HCPCS: 11042; 36416

== ENCOUNTER 2017-11-19 09:57 | Outpatient (CLI) | payer MEDICARE ==
--- NOTE | 2017-11-19 11:05 | PRG ---
DATE OF SERVICE: 11/19/2017 HISTORY: Ms. She Mirza is a very pleasant 66-year-old who presents to the Wound Center for ian luation of multiple ulcerations of the right and left upper thighs. The patient stated at the time o f her initial presentation to the Wound Center that the wounds had developed 5 weeks previously. Whe n the patient presented to the Wound Center, she had been receiving dressing changes of Bactroban at [facility]. The patient stated that she had developed swelling of her lower extremities, follo wed by the appearance of "knots" and eventually the development of ulcerations of the right and left upper thighs. The patient stated that the swelling of her lower extremities improved with the initia tion of dialysis. The patient was referred to the Wound Center by Dr. Kenyon Hitchcock. After being see n in the Wound Center, dressing changes of Medihoney were initiated. The patient has been receiving these dressing changes every other day after cleansing and irrigation at [facility]. PHYSICAL EXAMINATION: VITAL SIGNS: Temperature 98.2, pulse 73, respirations 18, and blood pressure 136/70. Accu-Chek 156. EXTREMITIES: Multiple ulcerations of the right and left upper thighs are still present. These ulcer ations all are small however. No purulent drainage is associated with any of the wounds. No erythem a of the skin surrounding any of the wounds is present. No maceration of the skin of the periwound o f any of the wounds is noted. ASSESSMENT AND PLAN: 1. Multiple ulcerations of right and left upper thighs as described above. As stated above, all of the ulcerations are quite small. Dressing changes of Medihoney and bordered gauze will be continued every other day after cleansing and irrigation at [facility]. I will see Ms. Mirza again in fo ur weeks if her wounds are still present at this time. 2. Hypertension. 3. Osteoarthritis. 4. Diabetes mellitus. The patient's Accu-Chek in clinic today is 156. The patient has been reminde d that for optimal wound healing, her blood glucoses should remain below 150. 5. Nephrolithiasis. 6. Anemia. 7. End-stage renal disease. 8. History of atrial fibrillation.
== END 2017-11-19 09:58 | disposition home or self-care (01) ==
LOC: WCC 09:57
PROVIDERS: ATTEND Family Medicine
DX: E11.622 Type 2 diabetes mellitus with other skin ulcer (principal); L97.119 Non-pressure chronic ulcer of right thigh with unspecified severity; L97.129 Non-pressure chronic ulcer of left thigh with unspecified severity; E11.22 Type 2 diabetes mellitus with diabetic chronic kidney disease; I12.0 Hypertensive chronic kidney disease with stage 5 chronic kidney disease or end stage renal disease; N18.6 End stage renal disease; N20.0 Calculus of kidney; D63.1 Anemia in chronic kidney disease; I48.91 Unspecified atrial fibrillation
CPT/HCPCS: 36416

== ENCOUNTER 2018-01-04 08:49 | Outpatient (CLI) | payer MEDICARE ==
--- NOTE | 2018-01-04 11:20 | PRG ---
DATE OF SERVICE: 01/04/2018 HISTORY: Ms. She Mirza is a very pleasant 67-year-old who presents to the Wound Center for evalua tion of a wound of the right upper thigh. The patient was previously seen in the Wound Center for ev aluation of multiple ulcerations of the right and left upper thighs. The patient states that the wou nd of her right thigh is associated with significant drainage. The patient is receiving dressing collette nges at [facility] for her right upper thigh wound. The patient has no other complaints today. She denies any fever or chills. PHYSICAL EXAMINATION: VITAL SIGNS: Temperature 97.3, pulse 74, respirations 18, blood pressure 190/84. Accu-Chek 172. EXTREMITIES: A wound of the right upper thigh is present which measures approximately 0.1 x 0.1 cm. Purulent drainage associated with the wound was sent for aerobic and anaerobic cultures. The openin g of the wound was enlarged with the use of scissors to facilitate packing of the wound significant u ndermining is associated with the wound. Necrotic and nonviable tissue present within the wound raquel ins was debrided with an excisional full-thickness debridement with the use of a curet. No celluliti s of the right thigh is appreciated. No maceration of the skin of the periwound is noted. ASSESSMENT AND PLAN: 1. Right thigh wound as described above. Dressing changes of Medihoney and gauze will be initiated today. These dressing changes are to be performed every other day after cleansing and irrigation at [facility]. I will see Ms. Mirza again as needed. The patient understands and is in agreement with the preceding treatment plan. Antibiotic therapy will be initiated if warranted based upon the results of the cultures obtained today. 2. Hypertension. 3. Osteoarthritis. 4. Diabetes mellitus. The patient's Accu-Chek in clinic today is 172. The patient has been reminde d that for optimal wound healing, her blood glucoses should remain below 150. 5. Nephrolithiasis. 6. Anemia. 7. End-stage renal disease. 8. History of atrial fibrillation.
[2018-01-04] MEDS ORDERED: Sodium Chloride 0.9% 15 ML NEB ONE (14:53)
== END 2018-01-04 08:50 | disposition home or self-care (01) ==
LOC: WCC 08:49
PROVIDERS: ATTEND Family Medicine
DX: E11.622 Type 2 diabetes mellitus with other skin ulcer (principal); L97.119 Non-pressure chronic ulcer of right thigh with unspecified severity; I12.0 Hypertensive chronic kidney disease with stage 5 chronic kidney disease or end stage renal disease; N18.6 End stage renal disease; D63.1 Anemia in chronic kidney disease; M19.90 Unspecified osteoarthritis, unspecified site; N20.0 Calculus of kidney; Z86.79 Personal history of other diseases of the circulatory system
CPT/HCPCS: 87070; 87077; 87186; 87205; A4218

== ENCOUNTER 2018-02-11 12:53 | Inpatient (IN) | payer MEDICARE ==
[~2018-02-11 12:53] MED LIST: ISOVUE-370 76%-LOCM 1 ML ONE
[2018-02-11 13:18] LABS: Hemoglobin 10.3 g/dL (12.0-16.0); Mean Corpuscular Hemoglobin 30.4 pg (27.0-31.0); Mean Corpuscular Volume 94.9 fl (81.0-99.0); Mean Platelet Volume 7.5 fL (7.4-10.4); Platelet Count 149 thou/uL (130-400); RBC Distribution Width 14.4 % (11.5-14.5); Red Blood Cell (RBC) Count 3.39 mill/uL (4.20-5.40); White Blood Cell (WBC) Count 3.5 thou/uL (4.8-10.8)
[2018-02-11 13:22] LABS: INR-International Normal Ratio 1.1; Prothrombin Time 14.7 SEC (12.0-14.7)
[2018-02-11 13:29] LABS: Anion Gap 15 mmol/L (10-20); BUN (Urea Nitrogen) 28 mg/dL (9.8-20.1); Calc. Creatinine Clearance 0 mL/min (70-130); Carbon Dioxide 29 mmol/L (23-31); Chloride 90 mmol/L (98-107); Estimated GFR-MDRD 12; Glucose 126 mg/dL (80-115); Potassium 3.9 mmol/L (3.5-5.1); Sodium 130 mmol/L (136-145)
[2018-02-11 13:34] LABS: Troponin I 0.076 ng/mL (< 0.028)
[2018-02-11 13:39] LABS: Band 3 % (5-11); Eosinophils 1 % (0-10); Lymphocytes 1 % (21-51); MDiff Complete? YES; Monocytes 1 % (0-10); Neutrophil 94 % (42-75); PLT Morphology Comment Appears Adequate
[2018-02-11 14:08] LABS: Bilirubin Small (Negative); Blood, Urine Trace (Negative); Clarity CLOUDY (Clear); Glucose, Urine (Dipstick) 100 mg/dL (Negative); Leukocyte Negative (Negative); Nitrite Negative (Negative); Protein, Urine (Dipstick) 300 mg/dL (Neg-Trace)
[2018-02-11 14:11] LABS: Squamous Epithelial 21-50 HPF (0-3); WBC/HPF 21-50 HPF (0-3)
[2018-02-11 14:14] LABS: Pathc Cast-AUWi Flag 11.78 (0-2.49); Yeast-AUWi Flag 62.2 (0-25.0)
[2018-02-11 14:21] LABS: Bacteria/HPF 4+ HPF (None Seen); Hyaline Casts/LPF 0-3 HYALINE CAST LPF (0-3 Hyaline); Manual Microscopic Reviewed? No Path Casts Seen; RBC/HPF 0-3 HPF (0-3); Renal Epithelial None Seen HPF (0-3); Transitional Epithelial 0-3 HPF (0-3); Yeast-All Forms None Seen HPF (None Seen)
--- NOTE | 2018-02-11 14:30 | CT ---
CT BRAIN WITHOUT CONTRAST: Indication: Stroke protocol for right sided weakness. FINDINGS: There is low density involving the subcortical white matter and cortex of the left parietal lobe best seen on images 21 and 20 of series 2, suspicious for the changes of cortical and subcortical white m atter infarct. There is a remote left frontal lobe cortical infarct on image 26 of series 2. There is moderate chronic small vessel ischemic change. There is a remote appearing lacunar infarct involving the left caudate head. No intracranial hemorrhage is evident. Septum pellucidum and third ventricle are midline. Skull and extracranial soft tissues unremarkable. IMPRESSION: 1. Findings suspicious for an acute cortical/subcortical white matter infarct involving the left stefanie etal lobe. 2. Remote left frontal lobe cortical infarct and remote left caudate head lacunar infarct. 3. Moderate chronic small vessel ischemic change. 4. Findings called to Dr. Arevalo at 1:10 p.m. on 02-11-18. Code CR. POS: [facility]
--- NOTE | 2018-02-11 14:50 | CT ---
CTA HEAD WITH 3D VOLUME RENDERING CT NECK WITH 3D VOLUME RENDERING: Clinical history: Stroke alert with history of slurred speech, right sided weakness. FINDINGS: Calcifications are seen at the partially imaged proximal aorta. The great vessels that emanate from t he aortic arch reveal no high grade stenosis or occlusion. Bilateral subclavian arteries are patent. Each common carotid artery reveals mild calcification without significant stenosis. Bilateral cervica l ICA are patent. Intracranial course of the ICA bilaterally reveal fairly diffuse mild calcification without obvious stenosis or occlusion. There is no significant stenosis involving either MCA or LUMBER CARRIER. Anterior communicating arteries are unremarkable. Bilateral anterior cerebral arteries are patent. IMPRESSION: 1. Scattered atherosclerotic vascular disease without evidence of high grade stenosis or occlusion. 2. Telephone call to ER physician, Roberta Arevalo, placed at 1320 hours today. POS: [facility]
[2018-02-11] MEDS ORDERED: Vancomycin HCl 1 GM in Premix Bag 1 BAG IVPB SCH ×2 (15:15→16:00)
[2018-02-11] MEDS ORDERED: Bisacodyl 5 MG TAB PO PRN (15:22)
[2018-02-11] MEDS ORDERED: Acetaminophen 650 MG Suppository PR PRN (15:22)
--- NOTE | 2018-02-11 15:26 | RAD ---
CHEST ONE VIEW PORTABLE: History: 67-year-old female with history of cough and stroke-like symptoms with slurred speech and drooping of the side of the face. FINDINGS: Right dual-lumen venous access catheter. There is some pleural and parenchymal opacity changes in the right base, more marked than on prior study, concerning for the possibility of some right pleural ef fusion and/or right lower lobe pneumonia and/or pneumonitis and/or atelectasis. There is some bilater al vascular congestion which appears stable. The left chest is stable. Minimal cardiomegaly with is s table. IMPRESSION: Developing pleural and parenchymal opacity changes in the right base. Continued short term follow up. Stable bilateral vascular congestion and cardiomegaly. Right lower lobe pneumonia or pneumonitis bj ng with atelectasis and pleural effusion are all considerations. POS: [facility]
[2018-02-11] MEDS ORDERED: Vancomycin HCl 500 MG in Sodium Chloride 0.9% 100 ML IVPB SCH (16:00)
[2018-02-11] MEDS ORDERED: HOLD VANCOMYCIN FOR LEVEL >20 FS SCH (16:00)
[2018-02-11] MEDS ORDERED: Vancomycin HCl 1.25 GM in Sodium Chloride 0.9% 250 ML 250 ML IVPB SCH (16:00)
[2018-02-11] MEDS ORDERED: Vancomycin HCl 750 MG in Sodium Chloride 0.9% 250 ML 250 ML IVPB SCH (16:00)
[2018-02-11] MEDS ORDERED: Vancomycin Sliding Scale 1 EACH FS ONE (16:00)
[2018-02-11 16:24] VITALS: BMI 32.5
[2018-02-11] MEDS ORDERED: Lorazepam 2 MG/ML VIAL ONE (16:56)
[2018-02-11] MEDS ORDERED: Lorazepam 2 MG/ML VIAL SLOW IVP SCH (17:00)
[2018-02-11 17:02] LABS: Troponin I 0.079 ng/mL (< 0.028)
[2018-02-11 17:19] LABS: ALT (SGPT) 10 U/L (8-55); AST (SGOT) 22 U/L (5-34); Albumin 2.3 g/dL (3.4-4.8); Alkaline Phosphatase 236 U/L (40-150); Bilirubin, Direct 0.8 mg/dL (0.1-0.3); Protein, Total 5.8 g/dL (6.0-8.3)
--- NOTE | 2018-02-11 18:07 | MRI ---
MRI BRAIN: 02/11/2018 PROVIDED CLINICAL HISTORY: Slurred speech. Right-sided facial droop. FINDINGS: The ventricular system appears normal in size and morphology. There is no evidence for intracranial hemorrhage or mass effect. There is no evidence for restricted diffusion to suggest recent infarctio n. Evidence for conspicuous chronic microvascular ischemic change. Appropriate flow voids are seen within the major intracranial vessels. The extracranial soft tissues and calvarial marrow signal ish ear unremarkable, with the exception of minimal right mastoid fluid. IMPRESSION: 1. No evidence for an acute process. 2. Conspicuous chronic microvascular ischemic change. POS: [facility]
--- NOTE | 2018-02-11 19:33 | CON ---
DATE OF CONSULTATION: 02/11/2018 REASON FOR CONSULTATION: Stage 6 chronic kidney disease, on maintenance hemodialysis. HISTORY OF PRESENT ILLNESS: This is a very pleasant 67-year-old female, who presented to the [facility] for weakness in the arm and facial droop and slurred speech. The patient was noted to have DIU lik e symptoms. The patient denies headache, numbness, tingling or weakness. Denies any nausea, vomitin g or chest pain. The patient's blood pressure was low and was given fluid. PAST MEDICAL HISTORY: Significant for hypertension, diabetes mellitus, anemia, ESRD, atrial fibrilla tion. PAST SURGICAL HISTORY: Right hip replacement, left hip replacement, back surgery, hysterectomy. SOCIAL ECONOMIC HISTORY: No alcohol or drug use. FAMILY HISTORY: Negative for ESRD. ALLERGIES: Reviewed. REVIEW OF SYSTEMS: Unobtainable. HOME MEDICATIONS: List reviewed. HOSPITAL MEDICATIONS: List reviewed. PHYSICAL EXAMINATION: GENERAL: The patient is awake and alert. VITAL SIGNS: Afebrile, pulse 70, breathing at 16, blood pressure was 70/50. GENERAL APPEARANCE AND MENTAL STATUS: Fair. HEAD/NECK: Normocephalic. Atraumatic. EYES: EOMI. No deformity. EARS: Clear. No ulcers. NOSE: Intact. No lesions. MOUTH: Clear. No discharge. THROAT: Clear. No exudate. LUNGS: Clear. No crackles. CARDIAC: S1, S2. No rub. ABDOMEN: Benign. BS+. GENITALIA/RECTUM: Nieves absent. BACK/EXTREMITIES: Edema 0+ Ulcer-. NEUROLOGICAL: Alert and motor intact. SKIN: Rash- Bruise-. LYMPHATICS: Edema- Ulcer-. LABORATORY DATA: Labs show hemoglobin 10.3, potassium 3.9. ASSESSMENT AND RECOMMENDATIONS: 1. Stage 6 chronic kidney disease. Plan dialysis tomorrow. 2. Hypertension, give fluids. 3. Anemia, stable. 4. Medications based on GFR are appropriate. 5. CVA management per primary team.
--- NOTE | 2018-02-11 19:36 | HP ---
PRIMARY CARE PROVIDER: Myranda Elaine M.D. CHIEF COMPLAINT: Slurred speech. HISTORY OF PRESENT ILLNESS: Ms. Mirza is a pleasant 67-year-old lady, who was seen at [facility] on 02/11/2018. She was hospitalized at this facility in 06/2017 for end-stage renal disease, and she was initiated o n hemodialysis during that hospitalization. She became physically deconditioned during that hospital ization and was discharged to [facility]. She reports that she was at [facility] habilitation for 2 weeks. She was subsequently discharged to [facility]. She was at [facility] for 6 months. She also reports that she has chronic wounds. She also reports that she had an infection in the left thigh and she is supposed to undergo surgery in 5 days' time. She is also supposed to see an Infect ious Disease specialist at [facility] on the day prior to surgery. The surgery is scheduled at [facility] as well. Over the last few days, there have been a few days with she had bilious vomiting and was not eating f ood. She denies any dysuria. She usually makes urine once a day. She denies any cough. Her caregi aníbal reports that she had a temperature of 101 degrees Fahrenheit a few days ago. She came to Cardiology office to have a 2D echocardiogram as well as preop evolve by broiler chef or cook. Ermelinda his was supposed to be followed by removal of hemodialysis catheter by Dr. Cifuentes at 2:30 p.m. At broiler chef or cook's office, she started leaning towards her left while walking. She also had slurred s peech. I forgot to mention that on the way to broiler chef or cook's office, she was holding a Coke in her r ight hand and it slipped and fell. She is left hand dominant. In the broiler chef or cook's office, she also had poor hand coordination and she could not just touch her fa ce. She was therefore sent to the emergency room. In the emergency room, she was found to be hypotensive. Slurred speech, resolved. There were no foc al deficits. She was referred to Hospitalist Service for further management. REVIEW OF SYSTEM: All other systems were reviewed and found not to be negative. PAST MEDICAL HISTORY: Significant for end-stage renal disease on hemodialysis Thursday, Thursday, and Thursday. Lumbar laminectomy in 2016, nephrolithiasis in 1999, polyarticular osteoarthritis, gout, L4 radiculopathy, hypertension, dyslipidemia, diabetes mellitus, anemia, scoliosis, obesity, lumbar aníbal tebral osteomyelitis in 2016, recurrent urinary tract infections, and left hip instability. PAST SURGICAL HISTORY: Significant for dialysis access placement, dialysis catheter placement, total hysterectomy, bilateral total hip replacement, right side in 2003 and left-sided in 2008. Bilateral cataract surgery in 2012. Lumbar laminectomy at L3/L4 and L4/L5 in 2016. FAMILY HISTORY: Significant for cirrhosis in her father and heart disease in her mother. SOCIAL HISTORY: The patient denies tobacco use, alcohol use or recreational drug use. PSYCHIATRIC HISTORY: Depression. CODE STATUS: I discussed her code status. She is FULL CODE. Surrogate decision maker is daughter, Lynda. ALLERGIES: CHLORHEXIDINE, MORPHINE. CURRENT MEDICATIONS: Coreg 12.5 mg 2 times a day, Tylenol No.3 p.r.n., gabapentin 300 mg at bedtime, hydralazine 25 mg 2 times a day, amiodarone 200 mg daily, duloxetine 30 mg daily, Lantus insulin, an d NovoLog 70/30 insulin. PHYSICAL EXAMINATION: GENERAL: Ms. Mirza is awake and alert, not in acute distress. VITAL SIGNS: Blood pressure is 73/66, pulse is 78. She is breathing at a rate of 16, and saturating 100% on 2 liters of oxygen. Earlier, she had respiratory rate of 23. Her room air oxygen saturatio ns were 88%. EYES: No scleral icterus. No conjunctival pallor. ENT: Dry mucosal membranes, no oropharyngeal erythema or exudates. NECK: Supple, nontender, normal range of movement. Trachea is midline. RESPIRATORY: Accessory muscles of breathing are not active. Chest wall movements are symmetric bila terally. LUNGS: Reveals right basal crackles. CARDIOVASCULAR: S1 and S2 are heard, regular. Peripheral pulses palpable. No pericardial rub, no c arotid bruit. NEUROLOGIC: Cranial nerves II-XII intact, no focal motor or sensory deficits. She is unable to move her left lower extremity secondary to pain at the left hip. Deep tendon reflexes are 2+. Plantar r eflexes downgoing bilaterally. MUSCULOSKELETAL: The patient is unable to move her left lower extremity secondary to pain. Power is 5/5 in the other three extremities. SKIN: She has a wound over the medial aspect of her left thigh. LYMPHATIC: No cervical lymphadenopathy. PSYCHIATRIC: Normal mood, normal affect, patient is oriented to person, place, and time. LABORATORY DATA: Ms. Mirza'marciano labs and investigations were reviewed. I reviewed her electrocardiogra m, which does not show any ST segment changes. She is in normal sinus rhythm. I also reviewed her c hest x-ray, which shows right lower lobe infiltrates. She has leukopenia with 3500 white cells, cons isting of 94% neutrophils and 3% bands. She has normocytic anemia with hemoglobin 10.3, normal plate let count, INR 1.1, decreased sodium of 130, elevated blood urea nitrogen of 28, elevated creatinine of 3.87, indeterminate troponin I of 0.076 and urinalysis that is positive for protein, glucose, bloo d, and bilirubin, but negative for leukocyte esterase and nitrite. ASSESSMENT AND PLAN: Ms. Mirza is a pleasant 67-year-old lady, who was seen at [facility] on 02/11/2018. Her problem list includes: 1. Transient ischemic attack. Ms. Mirza's presentation is consistent with transient ischemic attack . She will be admitted to the hospital for further workup including 2D echocardiogram, which was not done at the broiler chef or cook's office today, MRI of brain and Neurology Service consultation. 2. Sepsis. Her presentation also meets the criteria for sepsis, suspected sources of infection, dm g or left hip. Bactrim is also a possibility. Blood cultures will be sent out. She will be started on empiric antibiotics. I contacted her orthopedic surgeon at [facility], Dr. Mk serrano. He reports that her left hip aspirate was positive for Bacteroides fragilis. We will continue her on empiric antibiotics and consult Infectious Disease service here. We will await cultures. 3. Diabetes mellitus. Start Accu-Cheks, insulin sliding scale. 4. End-stage renal disease on hemodialysis. I discussed her case with her forgesmith, who has kin raynay agreed to consult for maintenance hemodialysis. I also discussed her case with her surgeon, who has kindly agreed to consult for removal of dialysis catheter. 5. Hypertension: Monitor vital signs, titrate antihypertensives as needed. The patient is currentl y hypotensive, we will therefore hold her antihypertensives. 6. Atrial fibrillation. Patient is currently in sinus rhythm. Monitor on telemetry. Many thanks for allowing me to participate in your patient's care. Please feel free to contact me wi th any questions or concerns. LEVEL OF RISK: High. LEVEL OF COMPLEXITY: High.
[2018-02-11] MEDS: Piperacillin/Tazobactam 2.25 GM in Sodium Chloride 0.9% 100 ML IVPB SCH ×2 (19:47→23:45)
[2018-02-11 19:58] LABS: Troponin I 0.071 ng/mL (< 0.028)
[2018-02-12] MEDS: Acetaminophen 325 MG TAB PO PRN ×4 (04:52→23:05)
[2018-02-12 05:13] LABS: Anion Gap 11 mmol/L (10-20); BUN (Urea Nitrogen) 32 mg/dL (9.8-20.1); Calc. Creatinine Clearance 19 mL/min (70-130); Calcium 8.6 mg/dL (7.8-10.44); Carbon Dioxide 29 mmol/L (23-31); Chloride 92 mmol/L (98-107); Cholesterol 104 mg/dl (< 200 Desired); Estimated GFR-MDRD 11; Glucose 98 mg/dL (80-115); HDL Cholesterol Less than 8 mg/dL (>60 Neg Risk); Potassium 3.7 mmol/L (3.5-5.1); Sodium 128 mmol/L (136-145); Triglycerides 303 mg/dL (Less than 150)
[2018-02-12] MEDS: Piperacillin/Tazobactam 2.25 GM in Sodium Chloride 0.9% 100 ML IVPB SCH ×4 (05:18→23:05)
[2018-02-12 05:34] LABS: Band 18 % (5-11); Eosinophils 4 % (0-10); Hemoglobin 8.6 g/dL (12.0-16.0); Lymphocytes 8 % (21-51); MDiff Complete? YES; Mean Corpuscular HGB CONC 31.6 g/dL (32.0-36.0); Mean Corpuscular Hemoglobin 30.2 pg (27.0-31.0); Mean Corpuscular Volume 95.6 fl (81.0-99.0); Mean Platelet Volume 7.4 fL (7.4-10.4); Monocytes 4 % (0-10); Neutrophil 66 % (42-75); PLT Morphology Comment Appears Decreased; Platelet Count 108 thou/uL (130-400); RBC Distribution Width 14.4 % (11.5-14.5); Red Blood Cell (RBC) Count 2.86 mill/uL (4.20-5.40); White Blood Cell (WBC) Count 7.7 thou/uL (4.8-10.8)
[2018-02-12] MEDS ORDERED: Lidocaine 1% w/Epinephrine 1:100K 30 ML VIAL FS SCH (06:00)
[2018-02-12] MEDS ORDERED: Lidocaine 1% w/Epinephrine 1:100K 20 ML VIAL FS SCH (06:00)
--- NOTE | 2018-02-12 09:04 | CON ---
DATE OF CONSULTATION: 02/12/2018 CONSULTING PHYSICIAN: Hospitalist service. IMPRESSION: 1. Weakness secondary to hypotension. 2. Urinary tract infection and questionable sepsis. 3. Diabetes. 4. End-stage renal disease. 5. History of atrial fibrillation. PLAN: 1. Address hypotension. 2. Aspirin 81 mg per day. HISTORY OF PRESENT ILLNESS: Ms. Mirza is a 67-year-old white female, who has undergone several medic al problems over the recent past. She has had some wounds in her groin area that are under treatment . She has become quite weak and debilitated over the recent past. She has a hip replacement on the left that apparently has gone bad and she is not able to walk, though she was anticipating a replacem ent of the hip in the near future. She had been taking her blood pressure medications on a routine b asis over the last week. She has not been able to eat or drink very well due to some persistent naus ea and vomiting. She had some slurred speech and some generalized weakness. She dropped the drink t hat she was holding. She was sent over for evaluation of possible TIA. CT scan of the brain was unr emarkable. CTA of the neck and brain were both unremarkable as well. She was noted to have a blood pressure of 73/66 with a pulse of 78. She feels like things are better at this point. Her urine sug gested possible infection. She denies any lateralized weakness or numbness at this point. She has b een on dialysis since July. PAST MEDICAL HISTORY: As listed above. ALLERGIES: CHLORHEXIDINE and MORPHINE. SOCIAL HISTORY: No tobacco or alcohol use. FAMILY HISTORY: Noncontributory. REVIEW OF SYSTEMS: No headache, nausea, dizziness, difficulty swallowing, chest pain, or shortness o f breath. MEDICATION LIST: Reviewed. PHYSICAL EXAMINATION: GENERAL: She is an alert, appropriate, and middle-aged woman who appears a bit older than her stated age. VITAL SIGNS: Blood pressure 111/56, pulse 66, respirations 20, temperature 98.3. HEENT: Pupils equal and reactive. Conjunctivae clear. Oropharynx clear. NECK: Supple, no lymphadenopathy noted. EXTREMITIES: No cyanosis or edema. NEUROLOGIC EXAM: She is alert and appropriate. Her speech is fluent and clear. Cranial nerves II-X II are intact. Motor exam showed symmetric strength. There was generalized weakness of both legs. Sensation was intact to light touch. No asterixis was present. Gait was not testable. IMAGING: MRI of the brain was reviewed and showed some mild chronic small vessel changes. SUMMARY: This is a 67-year-old woman, who had some generalized weakness and vague slurred speech, li bharat secondary to her hypotension. This is likely related to her poor oral intake and hypertension m edications. Seems to be doing better at this point. I think her workup is complete from a neurologi c perspective. Given her risk factors, I suggested that she be on an aspirin daily.
--- NOTE | 2018-02-12 10:57 | PDOC.PN ---
- Subjective Encounter Start Date: 02/12/18 Encounter Start Time: 07:00 Pt seen for followup re: sepsis. Denies chest pain, shortness of breath, fevers or chills. No nausea or vomiting. - Objective Resuscitation Status: Resuscitation Status FULL:Full Resuscitation MAR Reviewed: Yes Vital Signs & Weight: Vital Signs (12 hours) Temp Pulse Pulse Resp BP BP Pulse Ox 02/12/18 08:53 65 121/57 L 02/12/18 07:32 98.3 F 66 20 111/56 L 98 02/12/18 03:56 98.3 F 72 16 124/59 L 97 02/12/18 00:30 98.8 F 70 16 102/53 L 96 Pulse Ox 02/12/18 08:53 100 02/12/18 07:32 02/12/18 03:56 02/12/18 00:30 Weight Weight 196 lb Result Diagrams: 02/14/18 04:51 02/14/18 04:51 Additional Labs: Accuchecks 02/12/18 02/11/18 05:28 22:43 POC Glucose 164 H 117 H EKG Reviewed by me: Yes (Tele: NSR) Phys Exam - Physical Examination Obese HEENT: moist MMs, sclera anicteric, oral pharynx no lesions, 2+ tonsils Neck: no nodes, no JVD, supple, full ROM Respiratory: no wheezing, no rales, no rhonchi, clear to auscultation bilateral Cardiovascular: RRR, no rub S1, S2 Gastrointestinal: soft, non-tender, no distention, positive bowel sounds Unable to move LLE due to pain, moving other 3 extremities Psychiatric: normal affect, A&O x 3 Dx/Plan (1) Sepsis Code(s): A41.9 - SEPSIS, UNSPECIFIED ORGANISM Status: Resolved (2) ESRD on dialysis Code(s): N18.6 - END STAGE RENAL DISEASE; Z99.2 - DEPENDENCE ON RENAL DIALYSIS Status: Chronic Comment: maintainance dialysis per nephrology service (3) Diabetes type 2, uncontrolled Code(s): E11.65 - TYPE 2 DIABETES MELLITUS WITH HYPERGLYCEMIA Status: Chronic Qualifiers: Diabetes mellitus terminal computer operator insulin use: with alf use Diabetes mellitus complication status: with kidney complications Diabetes mellitus complication detail: with nephropathy Qualified Code(s): E11.21 - Type 2 diabetes mellitus with diabetic nephropathy; E11.65 - Type 2 diabetes mellitus with hyperglycemia; E11.65 - Type 2 diabetes mellitus with hyperglycemia; E11.65 - Type 2 diabetes mellitus with hyperglycemia; E11.65 - Type 2 diabetes mellitus with hyperglycemia; Z79.4 - nursing home (current) use of insulin; Z79.4 - nursing home (current) use of insulin; Z79.4 - nursing home (current) use of insulin ; Z79.4 - nursing home (current) use of insulin Comment: continue accuchecks, insulin sliding scale (4) HTN (hypertension) Code(s): I10 - ESSENTIAL (PRIMARY) HYPERTENSION Status: Chronic Comment: BP still high, increase hydralazine dose (5) TIA (transient ischemic attack) Status: Ruled-out Comment: continue aspirin - Plan continue antibiotics, PT/OT, DVT proph w/SCDs * . Review of Systems - Review of Systems Constitutional: negative: fever, chills, sweats, weakness, malaise Respiratory: negative: Cough, Shortness of Breath, SOB with Excertion, Pleuritic Pain, Wheezing Cardiovascular: negative: chest pain, palpitations, orthopnea, paroxysmal nocturnal dyspnea, edema, light headedness, other Genitourinary: negative: Dysuria, Frequency, Incontinence, Hematuria, Retention Musculoskeletal: Foot Pain. negative: Neck Pain, Shoulder Pain, Arm Pain, Back Pain, Hand Pain, Leg Pain - Medications/Allergies Allergies/Adverse Reactions: Allergies Allergy/AdvReac Type Severity Reaction Status Date / Time chlorhexidine Allergy Rash Verified 09/05/16 10:47 morphine Allergy Nausea Verified 09/05/16 10:47 Medications: Current Medications Acetaminophen (Tylenol) 650 mg PO Q4H PRN PRN Reason: Headache/Fever or Pain Last Admin: 02/12/18 04:52 Dose: 650 mg Acetaminophen (Tylenol) 650 mg WI Q4H PRN PRN Reason: Headache/Fever or Pain Bisacodyl (Dulcolax) 10 mg PO DAILYPRN PRN PRN Reason: Constipation Piperacillin Sod/Tazobactam (Sod 2.25 gm/ Sodium Chloride) 100 mls @ 200 mls/ hr IVPB Q6HR [facility] Last Admin: 02/12/18 05:18 Dose: 100 mls Vancomycin HCl 1.25 gm/ Sodium (Chloride) 250 mls @ 166.667 mls/hr IVPB [facility]CALL [facility] Vancomycin HCl 1 gm/ Device 200 mls @ 200 mls/hr IVPB [facility] Vancomycin HCl 750 mg/ Sodium (Chloride) 250 mls @ 250 mls/hr IVPB [facility] Vancomycin HCl 500 mg/ Sodium (Chloride) 100 mls @ 100 mls/hr IVPB [facility] Lidocaine/Epinephrine (Xylocaine 1% W/ Epi 1:100k) 30 ml FS ONE [facility] Stop: 02/12/18 23:59 Miscellaneous Medication (Pharmacy To Dose) 1 each IVPB ONE PRN PRN Reason: Pharmacy to dose Stop: 03/13/18 15:14 Hold Vancomycin For (Level >20) 0 each FS .AT DIALYSIS [facility]
[2018-02-12] MEDS ORDERED: Dextrose 50% Abboject 50 ML SYRINGE SLOW IVP PRN (11:07)
[2018-02-12] MEDS ORDERED: HumaLOG 300 UNITS/3 ML VIAL SC PRN (11:07)
[2018-02-12] MEDS ORDERED: Dextrose 5% in Water 1,000 ML IV PRN (11:07)
--- NOTE | 2018-02-12 12:51 | CT ---
CTA HEAD WITH 3D VOLUME RENDERING CT NECK WITH 3D VOLUME RENDERING: Clinical history: Stroke alert with history of slurred speech, right sided weakness. FINDINGS: Calcifications are seen at the partially imaged proximal aorta. The great vessels that emanate from t he aortic arch reveal no high grade stenosis or occlusion. Bilateral subclavian arteries are patent. Each common carotid artery reveals mild calcification without significant stenosis. Bilateral cervica l ICA are patent. Intracranial course of the ICA bilaterally reveal fairly diffuse mild calcification without obvious stenosis or occlusion. 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 Anterior communicating arteries are unremarkable. Bilateral anterior cerebral arteries are patent. IMPRESSION: 1. Scattered atherosclerotic vascular disease without evidence of high grade stenosis or occlusion. 2. Telephone call to ER physician, Roberta Arevalo, placed at 1320 hours today.
[2018-02-12 13:04] LABS: HBSAg Index 0.19 S/CO (0-0.99); Hep B Surf AB Non-Reactive (NonReactive); Hep B Surf Ag Non-Reactive S/CO (NonReactive)
[2018-02-12 13:05] LABS: HBSAB Concentration 0.76 mIU/mL
--- NOTE | 2018-02-12 14:47 | PRG ---
DATE OF SERVICE: 02/12/2018 SUBJECTIVE: This is a 67-year-old female, being seen for end-stage renal disease. The patient denies any nausea, vomiting, or chest pain. OBJECTIVE: See above. GENERAL: On exam, patient is awake and alert. VITAL SIGNS: Afebrile, pulse 72, breathing at 16, blood pressure 124/59. GENERAL APPEARANCE AND MENTAL STATUS: Fair. HEAD/NECK: Normocephalic. Atraumatic. EYES: EOMI. No deformity. EARS: Clear. No ulcers. NOSE: Intact. No lesions. MOUTH: Clear. No discharge. THROAT: Clear. No exudate. LUNGS: Clear. No crackles. CARDIAC: S1, S2. No rub. ABDOMEN: Benign. BS+. GENITALIA/RECTUM: Nieves absent. BACK/EXTREMITIES: Edema 0+, ulcer. NEUROLOGICAL: Alert and motor intact. SKIN: Rash - bruise. LYMPHATICS: Edema - ulcer. LABORATORY DATA: Labs show hemoglobin 8.6, ASSESSMENT AND PLAN: 1. Stage 6 chronic kidney disease, plan hemodialysis. 2. Hypertension, stable. 3. Anemia, stable. 4. Medications based on glomerular filtration rate are appropriate. MTDD
--- NOTE | 2018-02-12 16:54 | OP ---
PREOPERATIVE DIAGNOSES: Functioning right arm fistula, transient ischemic attack; scheduled to my anna chowdary yesterday to remove her hemodialysis catheter, but hospitalization precluded that. POSTOPERATIVE DIAGNOSES: Functioning right arm fistula, transient ischemic attack; scheduled to my o judah yesterday to remove her hemodialysis catheter, but hospitalization precluded that. PROCEDURE PERFORMED: Removal of right IJ cuffed tunnel dialysis catheter. SURGEON: Dr. Wyatt Cifuentes. ANESTHESIA: A 1% Xylocaine with epinephrine. DESCRIPTION OF PROCEDURE: At the patient's bedside in her room, catheter exit site right chest prepa red with alcohol. Local anesthetic infiltrated into skin and subcutaneous tissue. A 1% Xylocaine wi th epinephrine was used. The catheter and cuff removed intact. Pressure held to hemostatic. Steril e dressing applied.
--- NOTE | 2018-02-13 04:35 | CON ---
DATE OF CONSULTATION: 02/12/2018 REASON FOR CONSULTATION: Left hip septic arthritis. HISTORY OF PRESENT ILLNESS: A 67-year-old patient, history of chronic low back problems with laminectomy in 2016, nephrolithiasis, osteoarthritis, gout, type 2 diabetes mellitus, previous lumbar vertebral osteomyelitis treated in 2016 to completion and bilateral hip replacements in 2008, who developed progressively worsening pain in the left hip area over the past many years. Eventually, she had imaging studies, which showed displacement and disruption of the hip arthroplasty site. She saw Dr. aHnnon who had done the hip replacement and he felt that the joints would have to be removed and reconstructed and he referred her to another Orthopedic surgeon at [facility]. Patient was seen there and patient had an aspirate which identified Bacteroides fragilis. Patient has been prepared for removal of the implant and replacement with likely functional spacer. In the meantime, she had developed end-stage renal disease and had been hemodialyzed through a tunneled catheter. More recently, the AV fistula has matured and she has switched to the fistula for dialysis. Over the past few days before admission, she developed some vomiting and had temperature elevation of 101. She was then seen by Dr. Nettles, he felt that she needed to go to the emergency room, she was admitted from the emergency room with hypotension and concern with possible TIA because of weakness and coordination problems. Chest x-ray showed some infiltrates in the lower lobes. White cell count is 3500, predominance of mature neutrophils. Troponin was indeterminate. Initial assessment was possible TIA and sepsis, type 2 diabetes. Patient has been started on aspirin, Tylenol, glucagon, insulin, piperacillin, tazobactam, and vancomycin. Currently, she is awake. She appears in no distress, appears chronically ill, but in no acute distress. No headaches, no visual symptoms, sore throat, odynophagia, dysphagia. No dyspnea or chest pain. No abdominal pain or back pain. She has pain in the left hip, which is quite intense prevents her from bearing weight in the area. Neurological symptoms appeared to have resolved. PAST MEDICAL HISTORY: Type 2 diabetes, end-stage renal disease on hemodialysis with fistula in the right upper extremity, previous IJ tunnel hemodialysis catheter, bilateral hip replacements 2008 and 2003, cataract surgery, laminectomy L3-L4, L4-L5 in 2015, and chronic left hip problems, recent aspiration of the left hip for cultures, which yielded Bacteroides fragilis at [facility]. ALLERGIES: CHLORHEXIDINE and MORPHINE. MEDICATIONS: Include at home Coreg, Tylenol, gabapentin, hydralazine, amiodarone, duloxetine, Lantus insulin. PHYSICAL EXAMINATION: VITAL SIGNS: T-max 99.3, blood pressure 160/70, pulse 83, respirations 18, O2 sat 97% on 2 liters nasal cannula. SKIN: Shows this chronic wound in the medial aspect of the right mid-thigh shows some abrasions and gluteal lesion on left side. The thigh ulcer has been there for quite a while. Apparently, patient was very edematous in the past and developed an ulcer, which has been there for many months now, slowly healing apparently. The ulcer has about 1 cm in diameter, a kind of tunnels, I did not have a Q-Tip, so I did not probe the area, appears to be somewhat superficial. Patient has a functional AV fistula right upper extremity and does not have a Nieves catheter. No lymphadenopathy. HEENT: Ocular movements conjugate. Oral cavity was not remarkable. NECK: Supple. LUNGS: Symmetric air entry with faint basilar crackles. HEART: S1, S2, regular rate without murmurs. ABDOMEN: Soft, not distended or tender. No ascites. No bladder distention. The left knee with marked reduction and range of motion. It is very painful even to move the foot because of the reflection towards the left hip. The other joints do not appear to have been any inflammatory process. The pulses are 1+ in dorsalis pedis. NEUROLOGIC: Plantar responses are flexure. She moves extremities with limitations imposed by the left hip and inflammatory process. She is awake, oriented, follows commands, pleasant. LABORATORY DATA: White cell count was 3.5 and now 7.7, hemoglobin 10.3 and 8.6 , MCV 95, platelets 149 and 108 with 94% neutrophils on arrival, now she has 18 % bands. Chemistry with sodium 128, creatinine 4.15, calcium 9.0. I do not see liver profile in this panel here. Now here, we will have a direct bilirubin 0.8. Transaminases normal, alkaline phosphatase 236, albumin 2.3. Urinalysis with 21-50 wbc's, 300 protein, random vancomycin 15. Microbiology: We have 2 sets of blood cultures thus far no growth. There is 5 wounds with MRSA and Proteus mirabilis that is probably colonization, this is from 2017. There is from a 10/28/2017 probably pubic wound with 3 different anaerobes, this is from the gluteal area. ASSESSMENT: 1. Type 2 diabetes. 2. End-stage renal disease on hemodialysis through an AV fistula right upper extremity. 3. Bilateral hip replacements in 2003 and 2008, now with disruption of the left hip replacement with evidence of infection, by Bacteroides fragilis per aspirate performed at [facility]. DISCUSSION: The patient's symptoms that led to admission likely secondary to the infection of the left hip with the change in the mental status related to sepsis. Bacteroides infection of prosthetic joints is not common and usually associated with immunosuppression for example, patients on corticosteroids, chemotherapeutic agents or patients with gastrointestinal and genitourinary tract problems. She does have end-stage renal disease and had this pubic area wound, which had anaerobes that may have become bacteremic and likely seeded the joint from that area in 2016. It looks like the joint itself was not functioning well even before the likely period for seeding off the joint. The recommended management includes removal of the implants and then placement of a functional spacer, which patient will likely retain indefinitely if it is successful in terms of function, as well as iv antimicrobial therapy, this could be carried out with Flagyl or with Zosyn or carbapenem. Flagyl tends to be associated with risk of neuropathy after 3-4 weeks so I would favor either Zosyn or Carbapenem. The duration of therapy is the usual 6 weeks after that she may have to be on some sort of suppressive therapy. Depending on the type of revision surgery, if it is a single stage, most likely suppressive therapy would be required, if it is a 2-stage revision then probably not. Since patient has been managed at [facility], I would advise contacting their service and see if they would accept transfer for them to address the surgical issue, since I think she would need removal of the implant at this time. RAUL
[2018-02-13 05:06] LABS: #Eosinphils 0.2 thou/uL (0.0-0.7); #Monocytes 1.1 thou/uL (0.11-0.59); #Neutrophils 5.7 thou/uL (1.40-6.50); %Basophils 0.1 % (0.0-1.0); %Eosinophils 2.7 % (0.0-10.0); %Lymphocytes 12.4 % (21.0-51.0); %Monocytes 13.2 % (0.0-10.0); %Neutrophils 71.6 % (42.0-75.0); Hemoglobin 8.2 g/dL (12.0-16.0); Mean Corpuscular HGB CONC 31.7 g/dL (32.0-36.0); Mean Corpuscular Hemoglobin 30.2 pg (27.0-31.0); Mean Corpuscular Volume 95.2 fl (81.0-99.0); Mean Platelet Volume 7.3 fL (7.4-10.4); Platelet Count 118 thou/uL (130-400); RBC Distribution Width 14.3 % (11.5-14.5); Red Blood Cell (RBC) Count 2.73 mill/uL (4.20-5.40); White Blood Cell (WBC) Count 7.9 thou/uL (4.8-10.8)
[2018-02-13 05:41] LABS: Anion Gap 6 mmol/L (10-20); BUN (Urea Nitrogen) 18 mg/dL (9.8-20.1); Calc. Creatinine Clearance 30 mL/min (70-130); Calcium 8.3 mg/dL (7.8-10.44); Carbon Dioxide 31 mmol/L (23-31); Chloride 98 mmol/L (98-107); Estimated GFR-MDRD 19; Glucose 126 mg/dL (80-115); Potassium 3.4 mmol/L (3.5-5.1); Sodium 132 mmol/L (136-145)
[2018-02-13] MEDS: Piperacillin/Tazobactam 2.25 GM in Sodium Chloride 0.9% 100 ML IVPB SCH ×4 (06:18→23:36)
[2018-02-13] MEDS: Acetaminophen 325 MG TAB PO PRN ×3 (06:18→21:00)
--- NOTE | 2018-02-13 09:03 | PRG ---
DATE OF SERVICE: 02/13/2018 SUBJECTIVE: This is a 67-year-old female, being seen for end-stage renal disease. The patient denie s any nausea, vomiting, or chest pain. OBJECTIVE: See above. GENERAL: Patient is awake and alert. VITAL SIGNS: Afebrile, pulse 75, breathing at 16, blood pressure 133/62. GENERAL APPEARANCE AND MENTAL STATUS: Fair. HEAD/NECK: Normocephalic. Atraumatic. EYES: EOMI. No deformity. EARS: Clear. No ulcers. NOSE: Intact. No lesions. MOUTH: Clear. No discharge. THROAT: Clear. No exudate. LUNGS: Clear. No crackles. CARDIAC: S1, S2. No rub. ABDOMEN: Benign. BS+. GENITALIA/RECTUM: Nieves absent. BACK/EXTREMITIES: Edema 0+, ulcer. NEUROLOGICAL: Alert and motor intact. SKIN: Rash - bruise. LYMPHATICS: Edema - ulcer. LABORATORY DATA: Labs show hemoglobin 8.2. ASSESSMENT AND RECOMMENDATIONS: 1. Stage 6 chronic kidney disease. Continue hemodialysis Thursday, Thursday, Thursday. 2. Hypertension, stable. 3. Anemia, stable. 4. Medications based on glomerular filtration rate are appropriate.
[2018-02-13] MEDS: Aspirin 81 mg Enteric Coated Tablet PO SCH (09:04)
--- NOTE | 2018-02-13 13:28 | PDOC.PN ---
- Subjective Encounter Start Date: 02/13/18 Encounter Start Time: 13:27 Pt seen for followup re: sepsis. Feels better. No chest pain, fevers or chills. - Objective Resuscitation Status: Resuscitation Status FULL:Full Resuscitation MAR Reviewed: Yes Vital Signs & Weight: Vital Signs (12 hours) Temp Pulse Resp BP Pulse Ox 02/13/18 12:00 98.5 F 78 16 137/65 100 02/13/18 08:00 98.7 F 77 14 99 02/13/18 07:42 98.7 F 77 14 145/65 H 99 02/13/18 03:36 98.4 F 79 16 133/62 94 L Weight Admit Weight 196 lb Weight 196 lb I&O: 02/12/18 02/13/18 02/14/18 06:59 06:59 06:59 Output Total 350 Balance -350 Result Diagrams: 02/13/18 04:39 02/13/18 04:39 Additional Labs: Accuchecks 02/13/18 02/13/18 02/12/18 10:44 05:59 20:40 POC Glucose 155 H 128 H 168 H EKG Reviewed by me: Yes (Tele: NSR) Phys Exam - Physical Examination Obesity HEENT: PERRLA, moist MMs, sclera anicteric, oral pharynx no lesions Neck: no nodes, no JVD, supple, full ROM Respiratory: no wheezing, no rales, no rhonchi, clear to auscultation bilateral Cardiovascular: RRR, no rub S1, S2 Gastrointestinal: soft, non-tender, no distention, positive bowel sounds Musculoskeletal: pulses present Difficulty moving LLE due to pain, able to move other three limbs Psychiatric: normal affect, A&O x 3 Dx/Plan (1) Sepsis Code(s): A41.9 - SEPSIS, UNSPECIFIED ORGANISM Status: Acute Comment: Blood cultures pending. Continue IV Zosyn and vancomycin (2) ESRD on dialysis Code(s): N18.6 - END STAGE RENAL DISEASE; Z99.2 - DEPENDENCE ON RENAL DIALYSIS Status: Acute Comment: nephrology following (3) Diabetes type 2, uncontrolled Code(s): E11.65 - TYPE 2 DIABETES MELLITUS WITH HYPERGLYCEMIA Status: Chronic Qualifiers: Diabetes mellitus residential insulin use: with residential use Diabetes mellitus complication status: with kidney complications Diabetes mellitus complication detail: with nephropathy Qualified Code(s): E11.21 - Type 2 diabetes mellitus with diabetic nephropathy; E11.65 - Type 2 diabetes mellitus with hyperglycemia; E11.65 - Type 2 diabetes mellitus with hyperglycemia; E11.65 - Type 2 diabetes mellitus with hyperglycemia; E11.65 - Type 2 diabetes mellitus with hyperglycemia; Z79.4 - residential (current) use of insulin; Z79.4 - extermination inspector (current) use of insulin; Z79.4 - extermination inspector (current) use of insulin ; Z79.4 - residential (current) use of insulin Comment: continue accuchecks, insulin sliding scale (4) HTN (hypertension) Code(s): I10 - ESSENTIAL (PRIMARY) HYPERTENSION Status: Chronic Comment: Controlled (5) TIA (transient ischemic attack) Status: Resolved Comment: continue aspirin - Plan * . Discussed with Dr Castro at [facility]. Since it is a lateral transfer, they are unwilling to accept patient. Pt can go home if well and have surgery next Thursday or if still hospitalized they will accept her. Review of Systems - Review of Systems Constitutional: negative: fever, chills, sweats, weakness, malaise Respiratory: negative: Cough, Shortness of Breath, SOB with Excertion, Pleuritic Pain, Wheezing Cardiovascular: negative: chest pain, palpitations, orthopnea, paroxysmal nocturnal dyspnea, edema, light headedness Gastrointestinal: negative: Nausea, Vomiting, Abdominal Pain, Diarrhea, Constipation, Melena, Hematochezia Genitourinary: negative: Dysuria, Frequency, Incontinence, Hematuria, Retention Skin: negative: Rash, Lesions, Yemi, Bruising - Medications/Allergies Allergies/Adverse Reactions: Allergies Allergy/AdvReac Type Severity Reaction Status Date / Time chlorhexidine Allergy Rash Verified 09/05/16 10:47 morphine Allergy Nausea Verified 09/05/16 10:47 Medications: Current Medications Acetaminophen (Tylenol) 650 mg PO Q4H PRN PRN Reason: Headache/Fever or Pain Last Admin: 02/13/18 06:18 Dose: 650 mg Acetaminophen (Tylenol) 650 mg [place] Q4H PRN PRN Reason: Headache/Fever or Pain Aspirin (Ecotrin) 81 mg PO DAILY [facility] Last Admin: 02/13/18 09:04 Dose: 81 mg Bisacodyl (Dulcolax) 10 mg PO DAILYPRN PRN PRN Reason: Constipation Dextrose/Water (Dextrose 50%) 25 gm SLOW IVP PRN PRN PRN Reason: Hypoglycemia Glucagon (Glucagon) 1 mg IM PRN PRN PRN Reason: Hypoglycemia Piperacillin Sod/Tazobactam (Sod 2.25 gm/ Sodium Chloride) 100 mls @ 200 mls/ hr IVPB Q6HR [facility] Last Admin: 02/13/18 11:43 Dose: 100 mls Vancomycin HCl 1.25 gm/ Sodium (Chloride) 250 mls @ 166.667 mls/hr IVPB [facility]CALL [facility] Vancomycin HCl 1 gm/ Device 200 mls @ 200 mls/hr IVPB [facility] Vancomycin HCl 750 mg/ Sodium (Chloride) 250 mls @ 250 mls/hr [facility]PB [facility] Last Admin: 02/12/18 21:16 Dose: 250 mls Vancomycin HCl 500 mg/ Sodium (Chloride) 100 mls @ 100 mls/hr IVPB [facility] Dextrose/Water (D5w) 1,000 mls @ 0 mls/hr IV .Q0M PRN; As Directed PRN Reason: Hypoglycemia Insulin Human Lispro (Humalog) 0 units SC .MILD SLIDING SCALE PRN PRN Reason: Mild Correctional Scale Last Admin: 02/12/18 21:16 Dose: 2 unit Miscellaneous Medication (Pharmacy To Dose) 1 each IVPB ONE PRN PRN Reason: Pharmacy to dose Stop: 03/13/18 15:14 Hold Vancomycin For (Level >20) 0 each FS .AT DIALYSIS [facility]
--- NOTE | 2018-02-13 13:33 | PDOC.EVN ---
Event Note - Event Note Event Note: Discussed with Dr Castro at [facility]. Since it is a lateral transfer, they are unwilling to accept patient. Pt can go home if well and have surgery next Thursday or if still hospitalized they will accept her.
[2018-02-14] MEDS: Piperacillin/Tazobactam 2.25 GM in Sodium Chloride 0.9% 100 ML IVPB SCH ×3 (04:48→17:50)
[2018-02-14 05:43] LABS: #Eosinphils 0.3 thou/uL (0.0-0.7); #Lymphocytes 1.1 thou/uL (1.20-3.40); #Monocytes 0.7 thou/uL (0.11-0.59); #Neutrophils 6.3 thou/uL (1.40-6.50); %Basophils 0.1 % (0.0-1.0); %Eosinophils 3.1 % (0.0-10.0); %Lymphocytes 13.4 % (21.0-51.0); %Monocytes 8.7 % (0.0-10.0); %Neutrophils 74.7 % (42.0-75.0); Hemoglobin 8.5 g/dL (12.0-16.0); Mean Corpuscular HGB CONC 31.1 g/dL (32.0-36.0); Mean Corpuscular Hemoglobin 29.8 pg (27.0-31.0); Mean Corpuscular Volume 95.8 fl (81.0-99.0); Mean Platelet Volume 7.4 fL (7.4-10.4); Platelet Count 116 thou/uL (130-400); RBC Distribution Width 14.2 % (11.5-14.5); Red Blood Cell (RBC) Count 2.85 mill/uL (4.20-5.40); White Blood Cell (WBC) Count 8.5 thou/uL (4.8-10.8)
[2018-02-14 05:50] LABS: Anion Gap 13 mmol/L (10-20); BUN (Urea Nitrogen) 27 mg/dL (9.8-20.1); Calc. Creatinine Clearance 24 mL/min (70-130); Calcium 8.4 mg/dL (7.8-10.44); Carbon Dioxide 25 mmol/L (23-31); Chloride 96 mmol/L (98-107); Estimated GFR-MDRD 14; Glucose 107 mg/dL (80-115); Potassium 3.7 mmol/L (3.5-5.1); Sodium 130 mmol/L (136-145)
[2018-02-14] MEDS: Acetaminophen 325 MG TAB PO PRN (06:00)
[2018-02-14] MEDS ORDERED: Bisacodyl 5 MG TAB PO PRN (07:22)
[2018-02-14] MEDS: Aspirin 81 mg Enteric Coated Tablet PO SCH (08:38)
[2018-02-14] MEDS: Amiodarone 200 MG TAB PO SCH (08:38)
[2018-02-14] MEDS: Carvedilol 6.25 MG TAB PO SCH ×2 (08:38→21:01)
[2018-02-14] MEDS: Acetaminophen/Codeine 30-300mg Tablet PO SCH ×2 (08:38→21:02)
[2018-02-14] MEDS: hydrALAZINE 25 MG TAB PO SCH ×2 (08:38→21:01)
[2018-02-14] MEDS: Gabapentin 300 MG CAP PO SCH (08:38)
[2018-02-14] MEDS ORDERED: Gabapentin 100 MG CAP PO SCH (09:00)
--- NOTE | 2018-02-14 09:47 | PDOC.PN ---
- Subjective Encounter Start Date: 02/14/18 Encounter Start Time: 07:00 Pt seen for followup re: bacteremia. Denies chest pain, shortness of breath, fevers or chills. No nausea or vomiting. - Objective Resuscitation Status: Resuscitation Status FULL:Full Resuscitation MAR Reviewed: Yes Vital Signs & Weight: Vital Signs (12 hours) Temp Pulse Resp BP BP Pulse Ox 02/14/18 08:38 81 196/83 H 02/14/18 08:00 98.5 F 81 16 196/83 H 95 02/14/18 03:47 98.2 F 16 164/73 H 92 L 02/13/18 23:50 99.3 F 77 16 153/70 H 97 Weight Admit Weight 196 lb Weight 196 lb I&O: 02/13/18 02/14/18 02/15/18 06:59 06:59 06:59 Output Total 350 Balance -350 Result Diagrams: 02/14/18 04:51 02/14/18 04:51 Additional Labs: Accuchecks 02/14/18 02/13/18 02/13/18 06:05 20:36 16:14 POC Glucose 122 H 134 H 185 H 02/13/18 10:44 POC Glucose 155 H EKG Reviewed by me: Yes (Tele: NSR) Phys Exam - Physical Examination Obesity HEENT: PERRLA, moist MMs, sclera anicteric, 2+ tonsils Neck: no nodes, no JVD, supple, full ROM Respiratory: no wheezing, no rales, no rhonchi, clear to auscultation bilateral Cardiovascular: RRR, no rub Gastrointestinal: soft, non-tender, no distention, positive bowel sounds Musculoskeletal: pulses present Neurological: moves all 4 limbs pain with LLE movement Psychiatric: normal affect, A&O x 3 Dx/Plan (1) Bacteremia Code(s): R78.81 - BACTEREMIA Status: Acute Comment: 2/2 blood cultures growing gram negative rods. One of them is Bacteroids, other organism identification pending. Continue IV Zosyn and vancomycin. (2) ESRD on dialysis Code(s): N18.6 - END STAGE RENAL DISEASE; Z99.2 - DEPENDENCE ON RENAL DIALYSIS Status: Chronic Comment: maintainance dialysis per nephrology service (3) Diabetes type 2, uncontrolled Code(s): E11.65 - TYPE 2 DIABETES MELLITUS WITH HYPERGLYCEMIA Status: Chronic Qualifiers: Diabetes mellitus skilled nursing insulin use: with dedicated intermodal truck driver use Diabetes mellitus complication status: with kidney complications Diabetes mellitus complication detail: with nephropathy Qualified Code(s): E11.21 - Type 2 diabetes mellitus with diabetic nephropathy; E11.65 - Type 2 diabetes mellitus with hyperglycemia; E11.65 - Type 2 diabetes mellitus with hyperglycemia; E11.65 - Type 2 diabetes mellitus with hyperglycemia; E11.65 - Type 2 diabetes mellitus with hyperglycemia; Z79.4 - local intermodal truck driver (current) use of insulin; Z79.4 - local intermodal truck driver (current) use of insulin; Z79.4 - local intermodal truck driver (current) use of insulin ; Z79.4 - [facility] (current) use of insulin Comment: continue accuchecks, insulin sliding scale (4) HTN (hypertension) Code(s): I10 - ESSENTIAL (PRIMARY) HYPERTENSION Status: Chronic Comment: BP still high, increase hydralazine dose (5) TIA (transient ischemic attack) Status: Ruled-out Comment: continue aspirin (6) Sepsis Code(s): A41.9 - SEPSIS, UNSPECIFIED ORGANISM Status: Resolved - Plan * . Review of Systems - Review of Systems Constitutional: weakness. negative: fever, chills, sweats, malaise Respiratory: negative: Cough, Shortness of Breath, SOB with Excertion, Pleuritic Pain, Wheezing Cardiovascular: negative: chest pain, palpitations, orthopnea, paroxysmal nocturnal dyspnea, edema, light headedness Gastrointestinal: negative: Nausea, Vomiting, Abdominal Pain, Diarrhea, Constipation, Melena, Hematochezia Genitourinary: negative: Dysuria, Frequency, Incontinence, Hematuria, Retention Musculoskeletal: Other (hip pain) - Medications/Allergies Allergies/Adverse Reactions: Allergies Allergy/AdvReac Type Severity Reaction Status Date / Time chlorhexidine Allergy Rash Verified 09/05/16 10:47 morphine Allergy Nausea Verified 09/05/16 10:47 Medications: Current Medications Acetaminophen (Tylenol) 650 mg PO Q4H PRN PRN Reason: Headache/Fever or Pain Last Admin: 02/14/18 06:00 Dose: 650 mg Acetaminophen (Tylenol) 650 mg [place] Q4H PRN PRN Reason: Headache/Fever or Pain Acetaminophen/Codeine Phosphate (Tylenol #3) 1 tab PO BID [facility] Last Admin: 02/14/18 08:38 Dose: 1 tab Amiodarone HCl (Cordarone) 200 mg PO DAILY [facility] Last Admin: 02/14/18 08:38 Dose: 200 mg Aspirin (Ecotrin) 81 mg PO DAILY [facility] Last Admin: 02/14/18 08:38 Dose: 81 mg Bisacodyl (Dulcolax) 10 mg PO DAILYPRN PRN PRN Reason: Constipation Bisacodyl (Dulcolax) 5 mg PO DAILY PRN PRN Reason: Constipation Carvedilol (Coreg) 12.5 mg PO BID [facility] Last Admin: 02/14/18 08:38 Dose: 12.5 mg Cyanocobalamin (Vitamin B-12) 1,000 mcg PO QPM [facility] Dextrose/Water (Dextrose 50%) 25 gm SLOW IVP PRN PRN PRN Reason: Hypoglycemia Duloxetine HCl (Cymbalta) 60 mg PO QPM [facility] Gabapentin (Neurontin) 300 mg PO QAM [facility] Last Admin: 02/14/18 08:38 Dose: 300 mg Glucagon (Glucagon) 1 mg IM PRN PRN PRN Reason: Hypoglycemia Hydralazine HCl (Apresoline) 25 mg PO BID [facility] Last Admin: 02/14/18 08:38 Dose: 25 mg Piperacillin Sod/Tazobactam (Sod 2.25 gm/ Sodium Chloride) 100 mls @ 200 mls/ hr IVPB Q6HR [facility] Last Admin: 02/14/18 04:48 Dose: 100 mls Vancomycin HCl 1.25 gm/ Sodium (Chloride) 250 mls @ 166.667 mls/hr IVPB [facility] Vancomycin HCl 1 gm/ Device 200 mls @ 200 mls/hr [facility] Vancomycin HCl 750 mg/ Sodium (Chloride) 250 mls @ 250 mls/hr IVPB [facility] Last Admin: 02/12/18 21:16 Dose: 250 mls Vancomycin HCl 500 mg/ Sodium (Chloride) 100 mls @ 100 mls/hr [facility]PB [facility] Dextrose/Water (D5w) 1,000 mls @ 0 mls/hr IV .Q0M PRN; As Directed PRN Reason: Hypoglycemia Insulin Human Lispro (Humalog) 0 units SC .MILD SLIDING SCALE PRN PRN Reason: Mild Correctional Scale Last Admin: 02/12/18 21:16 Dose: 2 unit Miscellaneous Medication (Pharmacy To Dose) 1 each IVPB ONE PRN PRN Reason: Pharmacy to dose Stop: 03/13/18 15:14 Hold Vancomycin For (Level >20) 0 each FS .AT DIALYSIS [facility] Sodium Chloride (Flush - Normal Saline) 10 ml IVF Q12HR [facility] Last Admin: 02/14/18 08:40 Dose: 10 ml Sodium Chloride (Flush - Normal Saline) 10 ml IVF PRN PRN PRN Reason: Saline Flush
--- NOTE | 2018-02-14 12:16 | PRG ---
DATE OF SERVICE: 02/14/2018 SUBJECTIVE: This is a 67-year-old female being seen for end-stage renal disease. Patient denies any nausea, vomiting, or chest pain. OBJECTIVE: See above. GENERAL: Patient is awake and alert. VITAL SIGNS: Afebrile, pulse 81, breathing at 16, blood pressure 196/83. GENERAL APPEARANCE AND MENTAL STATUS: Fair. HEAD/NECK: Normocephalic. Atraumatic. EYES: EOMI. No deformity. EARS: Clear. No ulcers. NOSE: Intact. No lesions. MOUTH: Clear. No discharge. THROAT: Clear. No exudate. LUNGS: Clear. No crackles. CARDIAC: S1, S2. No rub. ABDOMEN: Benign. BS+. GENITALIA/RECTUM: Nieves absent. BACK/EXTREMITIES: Edema 0+, ulcer. NEUROLOGICAL: Alert and motor intact. SKIN: Rash - bruise. LYMPHATICS: Edema - ulcer. LABORATORY DATA: Labs show hemoglobin 8.5, potassium 3.7. ASSESSMENT AND RECOMMENDATIONS: 1. Stage 6 chronic disease. Continue hemodialysis. 2. Hypertension. Titrate dry weight, and increase blood pressure pills, increase carvedilol to 25 mg b.i.d., also add lisinopril 5 mg daily to the current regimen. 3. Anemia stable. MTDD
[2018-02-14] MEDS: DULoxetine 60 MG CAP PO SCH (21:00)
[2018-02-14] MEDS ORDERED: DULoxetine 30 MG CAP PO SCH (21:00)
[2018-02-14] MEDS: Cyanocobalamin (Vitamin B-12) 1,000 MCG TAB PO SCH (21:01)
--- NOTE | 2018-02-14 23:52 | PRG ---
DATE OF SERVICE: 02/14/2018 SUBJECTIVE: Ms. Mirza is feeling somewhat better, less pain. No respiratory symptoms or abdominal p ain, no diarrhea. OBJECTIVE: VITAL SIGNS: T-max 98.6. Other vital signs are unremarkable except for elevation of systolic blood pressure. GENERAL: Awake, alert, oriented, pleasant. LUNGS: Clear. HEART: S1, S2, regular rate. ABDOMEN: Soft, not distended. Still with quite a bit of limitation range of motion of left hip. LABORATORY DATA: White cell count 8.5, hemoglobin 8.5, platelets 116, 74% neutrophils. Sodium 130, creatinine 3.29. Microbiology: We have 2 anaerobic gram negative rods isolated from 2 different set s of blood cultures. ASSESSMENT AND DISCUSSION: Type 2 diabetes and end-stage renal disease on hemodialysis through an AV fistula right upper extremity, bilateral hip replacements with disruption of left hip with evidence of infection by Bacteroides fragilis. The patient developed sepsis, which led to the immediate reagan es that precipitated admission, now she has evidence of likely Bacteroides fragilis bacteremia. Tc George. Apparently, she will be transferred to [place] [facility] [place] Thursday or Thursday for surgical i ntervention.
[2018-02-15] MEDS: Piperacillin/Tazobactam 2.25 GM in Sodium Chloride 0.9% 100 ML IVPB SCH ×5 (00:41→23:16)
[2018-02-15] MEDS: Acetaminophen/Codeine 30-300mg Tablet PO SCH (07:37)
[2018-02-15] MEDS: Aspirin 81 mg Enteric Coated Tablet PO SCH (07:38)
[2018-02-15] MEDS: Gabapentin 300 MG CAP PO SCH (07:38)
[2018-02-15 09:51] LABS: Vancomycin, Random 12.3 ug/mL (See Comment)
--- NOTE | 2018-02-15 11:02 | PRG ---
Patient Name: EMANI EGAN Date of service: 02/15/2018 Subjective: Patient was seen and examined at bedside and overnight events noted. Patient denies any shortness of breath or chest pain or palpitation. No history of nausea or vomiting or diarrhea or fever or chills or cramps. Objective: General: This is an obese female in no apparent distress, seen during dialysis. Vital signs: Temperature 98.2, pulse 70, respirations 18, blood pressure 162/70. HEENT: Atraumatic, normocephalic. Oral mucosa is moist. Neck: Supple. Cardiovascular: S1 S2 heard. Rate and rhythm regular. Respiratory: Clear to auscultation. Gastrointestinal: Abdomen is soft. Musculoskeletal: No tenderness. No edema. Dermatologic: No skin rash. Neurologic: Alert and awake and oriented X3. No focal neurologic deficits. Moving all the extremit ies. Psychiatric: Mood and affect normal. LABORATORY: Not done today. ASSESSMENT AND PLAN: 1. End-stage renal disease. We will continue on dialysis Thursday, Thursday, and Thursday. 2. Edema, controlled. 3. Hypertension. 4. Anemia. 5. Blood pressure still remains high. We will remove fluid with dialysis and monitor.
[2018-02-15] MEDS: Amiodarone 200 MG TAB PO SCH (12:31)
[2018-02-15] MEDS: Lisinopril 5 MG TAB PO SCH (12:31)
[2018-02-15] MEDS: Carvedilol 6.25 MG TAB PO SCH ×2 (12:31→20:32)
[2018-02-15] MEDS: hydrALAZINE 25 MG TAB PO SCH ×2 (12:32→20:32)
--- NOTE | 2018-02-15 12:42 | CON ---
DATE OF CONSULTATION: 02/15/2018 PRIMARY RELATIONS LIAISON: Dr. José Nettles. REASON FOR CONSULTATION: Preoperative evaluation. HISTORY OF PRESENT ILLNESS: Ms. She Mirza is a very pleasant 67-year-old woman. The patient has a history of infection in the hip and will need surgical therapy. Dr. Nettles recently saw the pat harmony in the office for preoperative evaluation and thought she was low risk to proceed. I have been asked to see her during this admission to confirm that this is still the case. Ms. Mirza was admitted to the hospital as mentioned here and is undergoing hemodialysis currently. T he plan is to be transferred to [facility] for the hip surgery. The patient is not having chest pain or pressure. She is feeling well now. MEDICATIONS: The patient's medications here, 1. Gabapentin. 2. Amiodarone 200 mg a day. 3. Hydralazine. 4. Dulcolax. 5. Insulin. Previously, the patient was on amiodarone, carvedilol, gabapentin, hydralazine, not listed on aspirin . PAST MEDICAL HISTORY: 1. History of hypertension. 2. History of end-stage renal disease. 3. History of systolic congestive heart failure, previous ejection fraction of 40%-45%, 50% on a rec ent Cardiolite study. Ejection fraction is actually improved on the echo during this admission. ALLERGIES: MORPHINE. REVIEW OF SYSTEMS: Constitutional: No significant weight gain or loss. Vision: No changes. Heari ng: No changes. Pulmonary: No cough or wheezing. Gastrointestinal: No nausea, vomiting, diarrhea . Skin: No rashes. Neurologic: No unilateral weakness or numbness. Psychiatric: No unusual depression or anxiety. PHYSICAL EXAMINATION: GENERAL: This is a pleasant patient who is just not completing dialysis. VITAL SIGNS: Her blood pressure is 162/70, pulse is 78 regular. HEENT: Eyes, sclerae nonicteric. Mouth mucous membranes moist. NECK: Supple, no lymphadenopathy. LUNGS: Clear, no wheezing, rales or rhonchi. CARDIAC: Normal S1, normal S2. There is no murmur, rub or gallop. ABDOMEN: Soft, nontender, no hepatosplenomegaly. EXTREMITIES: Warm, dry, no clubbing, cyanosis or edema. IMAGING: The rhythm strip is sinus rhythm, no acute changes. The echocardiogram done and interprete d by Dr. Nettles on this admission is ejection fraction 55%-60%. ASSESSMENT: 1. End-stage renal disease on dialysis. 2. History of hypertension. 3. On amiodarone, not mentioned in the notes. The indication I suspect is due to atrial arrhythmias . We would continue that for now. 4. Ejection fraction is now in the normal range. 5. Hypertension. PLAN: 1. Carvedilol has been resumed. 2. She is on low dose aspirin. 3. She is on amiodarone. 4. She is on low dose lisinopril. Appropriate patient to proceed to surgical therapy as outlined ab ove. The patient did have stress testing done 07/07, which revealed no significant ischemia, ejectio n fraction is 50% with small fixed inferolateral defect. The patient appears appropriate to proceed to surgical therapy as is planned.
[2018-02-15] MEDS ORDERED: Ondansetron HCl/PF 4 MG/2 ML Vial IVP PRN (12:49)
--- NOTE | 2018-02-15 13:11 | PDOC.PN ---
- Subjective Encounter Start Date: 02/15/18 Encounter Start Time: 07:20 Pt seen for followup re: bacteremia. Denies chest pain, shortness of breath, fevers or chills. - Objective Resuscitation Status: Resuscitation Status FULL:Full Resuscitation MAR Reviewed: Yes Vital Signs & Weight: Vital Signs (12 hours) Temp Pulse Resp BP BP Pulse Ox 02/15/18 12:32 78 163/70 H 02/15/18 12:31 78 163/70 H 02/15/18 12:30 99 F 84 16 163/70 H 97 02/15/18 08:00 98.2 F 78 16 162/70 H 92 L 02/15/18 07:40 98.2 F 78 16 02/15/18 04:00 98.1 F 77 20 165/71 H 93 L 02/15/18 02:02 99 Weight Admit Weight 196 lb Weight 196 lb I&O: 02/14/18 02/15/18 02/16/18 06:59 06:59 06:59 Intake Total 1495 Balance 1495 Result Diagrams: 02/14/18 04:51 02/14/18 04:51 Additional Labs: Accuchecks 02/15/18 02/15/18 02/14/18 12:39 05:03 21:24 POC Glucose 90 136 H 173 H 02/14/18 17:03 POC Glucose 148 H EKG Reviewed by me: Yes (Tele: NSR) Phys Exam - Physical Examination Obese HEENT: moist MMs, sclera anicteric Respiratory: clear to auscultation bilateral Cardiovascular: RRR Gastrointestinal: soft Psychiatric: normal affect Skin: no rash Dx/Plan (1) Bacteremia Code(s): R78.81 - BACTEREMIA Status: Acute Comment: 2/2 blood cultures growing gram negative rods. One of them is Bacteroids, other organism identification pending. Continue IV Zosyn and vancomycin. (2) Instability of left hip joint Code(s): M25.352 - OTHER INSTABILITY, LEFT HIP Status: Chronic Comment: For surgery on Thursday at [facility]. Likely transfer to [facility] tomorrow or on Thursday. Consulting cardiology service for preop eval. (3) ESRD on dialysis Code(s): N18.6 - END STAGE RENAL DISEASE; Z99.2 - DEPENDENCE ON RENAL DIALYSIS Status: Chronic Comment: maintainance dialysis per nephrology service (4) Diabetes type 2, uncontrolled Code(s): E11.65 - TYPE 2 DIABETES MELLITUS WITH HYPERGLYCEMIA Status: Chronic Qualifiers: Diabetes mellitus termite control servicer insulin use: with termite control servicer use Diabetes mellitus complication status: with kidney complications Diabetes mellitus complication detail: with nephropathy Qualified Code(s): E11.21 - Type 2 diabetes mellitus with diabetic nephropathy; E11.65 - Type 2 diabetes mellitus with hyperglycemia; E11.65 - Type 2 diabetes mellitus with hyperglycemia; E11.65 - Type 2 diabetes mellitus with hyperglycemia; E11.65 - Type 2 diabetes mellitus with hyperglycemia; Z79.4 - long term care administrator (current) use of insulin; Z79.4 - shelter (current) use of insulin; Z79.4 - shelter (current) use of insulin ; Z79.4 - long term care administrator (current) use of insulin Comment: continue accuchecks, insulin sliding scale (5) HTN (hypertension) Code(s): I10 - ESSENTIAL (PRIMARY) HYPERTENSION Status: Chronic Comment: BP still high, increase hydralazine dose (6) TIA (transient ischemic attack) Status: Ruled-out Comment: continue aspirin (7) Sepsis Code(s): A41.9 - SEPSIS, UNSPECIFIED ORGANISM Status: Resolved - Plan * . Review of Systems - Review of Systems Constitutional: negative: fever, chills, sweats, weakness, malaise Respiratory: Hemoptysis. negative: Cough, Shortness of Breath, SOB with Excertion, Pleuritic Pain, Wheezing Cardiovascular: negative: chest pain, palpitations, orthopnea, paroxysmal nocturnal dyspnea, edema, light headedness - Medications/Allergies Allergies/Adverse Reactions: Allergies Allergy/AdvReac Type Severity Reaction Status Date / Time chlorhexidine Allergy Rash Verified 09/05/16 10:47 morphine Allergy Nausea Verified 09/05/16 10:47 Medications: Current Medications Acetaminophen (Tylenol) 650 mg PO Q4H PRN PRN Reason: Headache/Fever or Pain Last Admin: 02/14/18 06:00 Dose: 650 mg Acetaminophen (Tylenol) 650 mg [place] Q4H PRN PRN Reason: Headache/Fever or Pain Acetaminophen/Codeine Phosphate (Tylenol #3) 1 tab PO TID PRN PRN Reason: Moderate to Severe Pain (6-10) Amiodarone HCl (Cordarone) 200 mg PO DAILY [facility] Last Admin: 02/15/18 12:31 Dose: 200 mg Aspirin (Ecotrin) 81 mg PO DAILY [facility] Last Admin: 02/15/18 07:38 Dose: 81 mg Bisacodyl (Dulcolax) 10 mg PO DAILYPRN PRN PRN Reason: Constipation Bisacodyl (Dulcolax) 5 mg PO DAILY PRN PRN Reason: Constipation Carvedilol (Coreg) 12.5 mg PO BID [facility] Last Admin: 02/15/18 12:31 Dose: 12.5 mg Cyanocobalamin (Vitamin B-12) 1,000 mcg PO QPM [facility] Last Admin: 02/14/18 21:01 Dose: 1,000 mcg Dextrose/Water (Dextrose 50%) 25 gm SLOW IVP PRN PRN PRN Reason: Hypoglycemia Duloxetine HCl (Cymbalta) 60 mg PO QPM [facility] Last Admin: 02/14/18 21:00 Dose: 60 mg Gabapentin (Neurontin) 300 mg PO QAM [facility] Last Admin: 02/15/18 07:38 Dose: 300 mg Glucagon (Glucagon) 1 mg IM PRN PRN PRN Reason: Hypoglycemia Hydralazine HCl (Apresoline) 25 mg PO BID [facility] Last Admin: 02/15/18 12:32 Dose: 25 mg Piperacillin Sod/Tazobactam (Sod 2.25 gm/ Sodium Chloride) 100 mls @ 200 mls/ hr IVPB Q6HR [facility] Last Admin: 02/15/18 12:32 Dose: 100 mls Vancomycin HCl 1.25 gm/ Sodium (Chloride) 250 mls @ 166.667 mls/hr [facility] Vancomycin HCl 1 gm/ Device 200 mls @ 200 mls/hr IVPB [facility] Vancomycin HCl 750 mg/ Sodium (Chloride) 250 mls @ 250 mls/hr IVPB [facility] Last Admin: 02/12/18 21:16 Dose: 250 mls Vancomycin HCl 500 mg/ Sodium (Chloride) 100 mls @ 100 mls/hr IVPB [facility] Dextrose/Water (D5w) 1,000 mls @ 0 mls/hr IV .Q0M PRN; As Directed PRN Reason: Hypoglycemia Insulin Human Lispro (Humalog) 0 units SC .MILD SLIDING SCALE PRN PRN Reason: Mild Correctional Scale Last Admin: 02/12/18 21:16 Dose: 2 unit Lisinopril (Zestril) 5 mg PO DAILY [facility] Last Admin: 02/15/18 12:31 Dose: 5 mg Miscellaneous Medication (Pharmacy To Dose) 1 each IVPB ONE PRN PRN Reason: Pharmacy to dose Stop: 03/13/18 15:14 Hold Vancomycin For (Level >20) 0 each FS .AT DIALYSIS [facility] Ondansetron HCl (Zofran) 4 mg IVP Q6H PRN PRN Reason: Nausea/Vomiting Sodium Chloride (Flush - Normal Saline) 10 ml IVF Q12HR [facility] Last Admin: 02/15/18 12:30 Dose: 10 ml Sodium Chloride (Flush - Normal Saline) 10 ml IVF PRN PRN PRN Reason: Saline Flush
[2018-02-15] MEDS: Acetaminophen/Codeine 30-300mg Tablet PO PRN ×2 (14:18→23:12)
[2018-02-15] MEDS: Cyanocobalamin (Vitamin B-12) 1,000 MCG TAB PO SCH (20:32)
[2018-02-15] MEDS: DULoxetine 60 MG CAP PO SCH (20:33)
[2018-02-16] MEDS: Piperacillin/Tazobactam 2.25 GM in Sodium Chloride 0.9% 100 ML IVPB SCH ×2 (05:19→11:50)
[2018-02-16] MEDS: Gabapentin 300 MG CAP PO SCH (08:02)
[2018-02-16] MEDS: Lisinopril 5 MG TAB PO SCH (08:02)
[2018-02-16] MEDS: hydrALAZINE 25 MG TAB PO SCH (08:02)
[2018-02-16] MEDS: Carvedilol 6.25 MG TAB PO SCH (08:03)
[2018-02-16] MEDS: Acetaminophen/Codeine 30-300mg Tablet PO PRN (08:03)
[2018-02-16] MEDS: Amiodarone 200 MG TAB PO SCH (08:03)
[2018-02-16] MEDS: Aspirin 81 mg Enteric Coated Tablet PO SCH (08:03)
--- NOTE | 2018-02-16 10:56 | PRG ---
DATE OF SERVICE: 02/16/2018 SUBJECTIVE: Patient was seen and examined at bedside and overnight events noted. Patient denies any shortness of breath or chest pain or palpitation. No history of nausea or vomiting or diarrhea or f ever or chills or cramps. OBJECTIVE: GENERAL: This is an obese female in no apparent distress. VITAL SIGNS: Temperature 98.7, pulse 78, respiratory rate 18, blood pressure 165/72. HEENT: Atraumatic, normocephalic. Oral mucosa is moist. NECK: Supple. CARDIOVASCULAR: S1, S2 heard. Rate and rhythm regular. RESPIRATORY: Clear to auscultation. GASTROINTESTINAL: Abdomen is soft. MUSCULOSKELETAL: No tenderness. No edema. DERMATOLOGIC: No skin rash. NEUROLOGIC: Alert and awake and oriented x3. No focal neurologic deficits. Moving all the extremiti es. PSYCHIATRIC: Mood and affect normal. LABORATORY DATA: Not done today. ASSESSMENT AND PLAN: 1. End-stage renal disease, continue on hemodialysis. 2. Edema, controlled. 3. Hypertension. Monitor medications. 4. Anemia. Monitor hemoglobin. 5. Continue on dialysis as tolerated.
--- NOTE | 2018-02-16 13:39 | DIS ---
DATE OF ADMISSION: 02/11/2018 DATE OF DISCHARGE: 02/16/2018 PRIMARY CARE PROVIDER: Myranda Elaine M.D. DISCHARGE DIAGNOSES: 1. Sepsis. 2. Bacteremia. CONDITION OF PATIENT ON THE DAY OF DISCHARGE: Stable. I assessed Ms. Mirza on the day of discharge. She denies any chest pain or shortness of breath. OBJECTIVE: VITAL SIGNS: Stable. CARDIAC: S1 and S2 are heard, regular. LUNGS: Clear to auscultation bilaterally. DISCHARGE MEDICATIONS: Include amiodarone 200 mg daily, aspirin 81 mg daily, Coreg 12.5 mg 2 times a day, vitamin B12 1000 mcg daily, Cymbalta 60 mg daily, gabapentin 300 mg daily, hydralazine 50 mg 2 times a day, lisinopril 5 mg daily, Zosyn 2.25 grams every 6 hours intravenously, vancomycin with christine lysis. CONSULTATIONS DURING THIS HOSPITALIZATION: Cardiology, Dr. Valdez, Infectious Diseases, Dr. Sanchez, N ephrology, Dr. Corona, General Surgery, Dr. Cifuentes, Neurology, Dr. Lane. HOSPITAL COURSE: Ms. Mirza is a pleasant 67-year-old lady who was admitted to [facility] on 02/11/2018 for TIA-like symptoms. She was also found to have sepsis. She was treated with broad-spectrum antibiotics. In terms of TIA, she was seen by Neurology Service. MRI of the brain did not show any acute process. Given her risk factors, Neurology Service recommended that she be continued on aspirin. She has a history of left hip infection as well as an unstable left hip. She was seen by Infectious Diseases Service. She was continued on broad-spectrum antibiotics. At the time of discharge, one bl ood culture is showing gram negative tanner while the other blood culture is positive for Bacteroides fr agilis and Bacteroides vulgatus. She was supposed to have left hip surgery at [facility] on 02/17/2018. She was seen by Cardiology Service at [facility] for a preoperative evaluation. She is being discharged to [facility] for further management, including surgery. She was also seen by Nephrology Service at [facility] for maintenance hemodialysis. She had a dialysis catheter at the time of hospitalization. She was seen by General Surgery and the cathete r was removed. She is being dialyzed through her AV fistula. Her next dialysis date is 02/17/2018. Many thanks for allowing me to participate in your patient's care. Please feel free to contact me wi th any questions or concerns. She had a 2D echocardiogram during this hospitalization, which showed left ventricular ejection fract ion of 55%-60%, mild mitral regurgitation, mildly elevated pulmonary artery pressure and mild tricusp id regurgitation. DISCHARGE DESTINATION: [facility] in [place]. TOTAL AMOUNT OF TIME SPENT COORDINATING THIS DISCHARGE: 33 minutes.
[2018-02-16 15:25] VITALS: BP 128/61; TEMP 98.4
== END 2018-02-16 16:45 | disposition short-term general hospital (02) | DRG 559 ==
LOC: ERS 12:53 → 2SE 15:14
PROVIDERS: ADMIT Internal Medicine; ATTEND Internal Medicine
PROC: 05PYX3Z Removal of Infusion Device from Upper Vein, External Approach (ICD-10-PCS; principal; 2018-02-16)
DX: T84.52XA Infection and inflammatory reaction due to internal left hip prosthesis, initial encounter (principal); A41.9 Sepsis, unspecified organism; N18.6 End stage renal disease; G45.9 Transient cerebral ischemic attack, unspecified; I12.0 Hypertensive chronic kidney disease with stage 5 chronic kidney disease or end stage renal disease; E11.22 Type 2 diabetes mellitus with diabetic chronic kidney disease; I48.91 Unspecified atrial fibrillation; D64.9 Anemia, unspecified; E78.5 Hyperlipidemia, unspecified; E66.9 Obesity, unspecified; Z96.643 Presence of artificial hip joint, bilateral; M96.1 Postlaminectomy syndrome, not elsewhere classified; E11.65 Type 2 diabetes mellitus with hyperglycemia; R47.81 Slurred speech; R29.810 Facial weakness; Y83.1 Surgical operation with implant of artificial internal device as the cause of abnormal reaction of the patient, or of later complication, without mention of misadventure at the time of the procedure; Z99.2 Dependence on renal dialysis; Z88.5 Allergy status to narcotic agent; Z79.4 Long term (current) use of insulin; Z79.899 Other long term (current) drug therapy; Z87.442 Personal history of urinary calculi; Z87.440 Personal history of urinary (tract) infections
CPT/HCPCS: 36415; 36416; 51701; 70450; 70496; 70498; 70551; 71045; 80048; 80053; 80061; 80076; 80202; 81003; 81015; 82553; 83036; 83735; 84466; 84484; 85025; 85610; 85730; 86706; 87040; 87076; 87149; 87340; 90935; 93005; 93306; A4216; G0257; G8978-GP-CN; G8979-GP-CK; G8987-GO-CM; G8988-GO-CK; G8996-GN-CH; G8997-GN-CH; J2001; J2060; J2405; J2543; J3370; J7050